=== PATIENT | male | born 1945 | race Caucasian/White ===

== ENCOUNTER 2019-04-20 12:32 | Outpatient (CLI) | payer MEDICARE, SELFPAY ==
[2019-04-20 12:49] LABS: Basophils Absolute Auto 0.1 K/mm3 (0.0-0.1); Basophils Percent Auto 1.2 % (0.2-1.2); Eosinophils Absolute Auto 0.1 K/mm3 (0-0.3); Eosinophils Percent Auto 2.8 % (0-4.4); Hematocrit 38.9 % (42.0-52.0); Hemoglobin 12.7 g/dL (14.0-18.0); Immature Granulocyte Absolute 0.02 K/mm3 (0.00-0.031); Immature Granulocyte Percent A 0.5 % (0-0.5); Lymphocytes Absolute Auto 1.23 K/mm3 (0.9-3.2); Lymphocytes Percent Auto 28.4 % (18.3-44.2); Mean Corpuscular HGB Conc 32.6 g/dl (32-36); Mean Corpuscular Hemoglobin 30.3 pg (26-34); Mean Corpuscular Volume 92.8 fl (80-100); Mean Platelet Volume 10.1 fl (7.4-10.4); Monocytes Absolute Auto 0.5 K/mm3 (0.1-0.6); Monocytes Percent Auto 10.9 % (2.6-8.5); Neutrophils Absolute Auto 2.4 K/mm3 (1.3-6.7); Neutrophils Percent Auto 56.2 % (45.5-73.1); Platelet Count Result 216 k/mm3 (150-375); Red Blood Count 4.19 M/mm3 (4.6-6.20); Red Cell Distribution Width 13.7 % (11.5-14.5); White Blood Count 4.3 K/mm3 (4.5-10.0)
[2019-04-20 16:43] LABS: Blood Urea Nitrogen 24 mg/dL (9-20); Calcium 9.5 mg/dL (8.4-10.2); Carbon Dioxide 30 mmol/L (22-30); Chloride 99 mmol/L (98-107); Estimated Glomerular Filt Rate 50; Glucose 359 mg/dL (75-110); Potassium 4.7 mmol/L (3.4-5.0); Sodium 137 mmol/L (137-145)
[2019-04-20 16:47] LABS: Iron 64 ug/dL (49-181)
[2019-04-20 17:01] LABS: Percent Iron Saturation 19 % (20-50)
== END 2019-04-20 12:33 | disposition home or self-care (01) ==
LOC: ANHLAB 12:36
PROVIDERS: PCP Family Medicine; Visit Provider Internal Medicine Hematology & Oncology
DX: D50.0 Iron deficiency anemia secondary to blood loss (chronic) (principal)
CPT/HCPCS: 36415; 80048; 82728; 83540; 83550; 85025

== ENCOUNTER 2019-10-26 08:56 | Outpatient (CLI) | payer MEDICARE, SELFPAY ==
[2019-10-26 09:24] LABS: Eosinophils Absolute Auto 0.1 K/mm3 (0-0.3); Eosinophils Percent Auto 2.6 % (0-4.4); Hematocrit 39.9 % (42.0-52.0); Immature Granulocyte Absolute 0.02 K/mm3 (0.00-0.031); Immature Granulocyte Percent A 0.5 % (0-0.5); Lymphocytes Absolute Auto 1.18 K/mm3 (0.9-3.2); Lymphocytes Percent Auto 30.4 % (18.3-44.2); Mean Corpuscular HGB Conc 32.6 g/dl (32-36); Mean Corpuscular Hemoglobin 30.7 pg (26-34); Mean Corpuscular Volume 94.1 fl (80-100); Mean Platelet Volume 10.2 fl (7.4-10.4); Monocytes Absolute Auto 0.4 K/mm3 (0.1-0.6); Monocytes Percent Auto 10.3 % (2.6-8.5); Neutrophils Absolute Auto 2.1 K/mm3 (1.3-6.7); Neutrophils Percent Auto 55.2 % (45.5-73.1); Platelet Count Result 176 k/mm3 (150-375); Red Blood Count 4.24 M/mm3 (4.6-6.20); Red Cell Distribution Width 13.2 % (11.5-14.5); White Blood Count 3.9 K/mm3 (4.5-10.0)
[2019-10-26 12:40] LABS: Iron 91 ug/dL (49-181)
[2019-10-26 12:41] LABS: Anion Gap 3 mmol/L (8-16); Blood Urea Nitrogen 28 mg/dL (9-20); Calcium 9.1 mg/dL (8.4-10.2); Carbon Dioxide 28 mmol/L (22-30); Chloride 106 mmol/L (98-107); Estimated Glomerular Filt Rate 40; Glucose 122 mg/dL (75-110); Potassium 4.5 mmol/L (3.4-5.0); Sodium 137 mmol/L (137-145)
[2019-10-26 12:50] LABS: Percent Iron Saturation 27 % (20-50)
== END 2019-10-26 08:57 | disposition home or self-care (01) ==
PROVIDERS: PCP Family Medicine; Visit Provider Internal Medicine Hematology & Oncology
DX: D50.0 Iron deficiency anemia secondary to blood loss (chronic) (principal)
CPT/HCPCS: 36415; 80048; 82728; 83540; 83550; 85025

== ENCOUNTER → 2020-01-14 13:24 | Outpatient (CLI) | payer MEDICARE, SELFPAY ==
--- NOTE | ~2020-01-14 | US_ITS ---
EXAMINATION: US renal BI DATE: 01/14/2020 13:52 INDICATION: Other acute kidney failure. TECHNIQUE: Multiple ultrasound grayscale images of the kidneys were obtained. COMPARISON: CT abdomen and pelvis 12/11/2018 FINDINGS: The right kidney measures 10.2 x 4.7 x 5.9 cm. The left kidney measures 11.8 x 9.5 x 7.5 cm. The kidn eys demonstrate normal parenchymal echogenicity. There are cysts in right kidney measuring up to 9.1 cm. There is no hydronephrosis. The bladder is normal. IMPRESSION: 1. Normal kidney sizes. No hydronephrosis. Reviewed, dictated and finalized at location A.
== END ==
PROVIDERS: PCP Family Medicine; Visit Provider Internal Medicine Nephrology
DX: N17.8 Other acute kidney failure (principal)
CPT/HCPCS: 76775

== ENCOUNTER 2020-04-20 09:53 | Outpatient (CLI) | payer MEDICARE, SELFPAY ==
[2020-04-20 10:10] LABS: Basophils Percent Auto 0.7 % (0.2-1.2); Eosinophils Absolute Auto 0.1 K/mm3 (0-0.3); Eosinophils Percent Auto 2.5 % (0-4.4); Hematocrit 33.8 % (42.0-52.0); Hemoglobin 10.6 g/dL (14.0-18.0); Immature Granulocyte Absolute 0.01 K/mm3 (0.00-0.031); Immature Granulocyte Percent A 0.2 % (0-0.5); Lymphocytes Absolute Auto 0.88 K/mm3 (0.9-3.2); Lymphocytes Percent Auto 21.7 % (18.3-44.2); Mean Corpuscular HGB Conc 31.4 g/dl (32-36); Mean Corpuscular Hemoglobin 30.5 pg (26-34); Mean Corpuscular Volume 97.1 fl (80-100); Mean Platelet Volume 9.9 fl (7.4-10.4); Monocytes Absolute Auto 0.4 K/mm3 (0.1-0.6); Monocytes Percent Auto 9.4 % (2.6-8.5); Neutrophils Absolute Auto 2.7 K/mm3 (1.3-6.7); Neutrophils Percent Auto 65.5 % (45.5-73.1); Platelet Count Result 173 k/mm3 (150-375); Red Blood Count 3.48 M/mm3 (4.6-6.20); Red Cell Distribution Width 13.7 % (11.5-14.5); White Blood Count 4.1 K/mm3 (4.5-10.0)
[2020-04-20 12:36] LABS: Anion Gap 6 mmol/L (8-16); Blood Urea Nitrogen 55 mg/dL (9-20); Calcium 9.2 mg/dL (8.4-10.2); Carbon Dioxide 25 mmol/L (22-30); Chloride 112 mmol/L (98-107); Estimated Glomerular Filt Rate 19; Glucose 130 mg/dL (75-110); Iron 76 ug/dL (49-181); Potassium 4.6 mmol/L (3.4-5.0); Sodium 143 mmol/L (137-145)
[2020-04-20 12:49] LABS: Percent Iron Saturation 22 % (20-50)
== END 2020-04-20 09:54 | disposition home or self-care (01) ==
LOC: ANHLAB 09:54
PROVIDERS: PCP Family Medicine; Visit Provider Internal Medicine Hematology & Oncology
DX: D50.0 Iron deficiency anemia secondary to blood loss (chronic) (principal)
CPT/HCPCS: 36415; 80048; 82728; 83540; 83550; 85025

== ENCOUNTER 2020-07-05 06:46 | Inpatient (IN) | payer MEDICARE, SELFPAY ==
[2020-07-05] VITALS (8 sets, daily range): BP systolic 111–141; BP diastolic 42–73; PULSE 66–87; RESP 20; TEMP 37.1–38.3; O2SAT 96–99; BMI 29.5
--- NOTE | ~2020-07-05 | US_ITS ---
EXAMINATION: US renal BI DATE: 07/08/2020 15:11 INDICATION: Hydronephrosis. TECHNIQUE: Multiple ultrasound grayscale images of the kidneys were obtained. COMPARISON: CT 12/11/2018, ultrasound 07/05/2020 FINDINGS: The right kidney measures 9.9 x 4.8 x 4.2 cm. The left kidney measures 10.1 x 7.4 x 5.9 cm. The kidne ys demonstrate normal parenchymal echogenicity. There is an 8.5 cm cyst in left kidney. There is no h ydronephrosis. The bladder is decompressed by a Thurston catheter. IMPRESSION: 1. Normal kidney sizes. No hydronephrosis. Reviewed, dictated and finalized at location B.
--- NOTE | ~2020-07-05 | US_ITS ---
EXAMINATION: US renal BI DATE: 07/05/2020 10:46 INDICATION: Decreased kidney function. TECHNIQUE: Multiple ultrasound grayscale images of the kidneys were obtained. COMPARISON: Ultrasound 01/14/2020, CT abdomen and pelvis 12/11/2018 FINDINGS: The right kidney measures 11.1 x 4.2 x 5.1 cm. The left kidney measures 11.9 x 7.5 x 5.9 cm. The kidn eys demonstrate normal parenchymal echogenicity. There is an 8.6 cm cyst in left kidney. There is mil d bilateral hydronephrosis. The bladder is markedly distended. IMPRESSION: 1. Markedly distended bladder with mild bilateral hydronephrosis. Reviewed, dictated and finalized at location B.
--- NOTE | ~2020-07-05 | US_ITS ---
US soft tissue groin RT 07/08/2020 16:15 Indication: Palpable right groin abnormality. Possible seroma or pseudoaneurysm. Procedure: High-resolution Limited ultrasound of the right groin in the area of palpable concern Comparison: No prior studies for comparison. Findings: In the area of right groin bruising and palpable lump there is a heterogeneous complex pred ominantly hypoechoic mass measuring 6.1 x 5.2 x 3.6 cm which does not communicate with the underlying vasculature. There is posterior acoustic enhancement with subtle internal vascularity. Impression: 1: Complex right groin mass in the area of palpable concern measuring 6.1 x 5.2 x 3.6 cm. Considerati ons include hematoma/seroma, although superimposed infection is not excluded. No evidence for pseudoa neurysm. Reviewed, dictated and finalized at location A. Impression: 1: Complex right groin mass in the area of palpable concern measuring 6.1 x 5.2 x 3.6 cm. Considerations include hematoma/seroma, although superimposed infect ion is not excluded. No evidence for pseudoaneurysm.
--- NOTE | 2020-07-05 07:00 | PC.NURSE ---
This patient, Phong Red, was admitted to 3 Med Surg Room 306-01 @ 06:36 via EMS as a direct admission. Patient/family oriented to hospital policies and general routines including ID bracelet, bed and alarms, visiting hours, pain management, procedures, bathroom and other care routines, personal items, smoking policy, room service/diet, and visiting hours. Information on how to activate the Rapid Response Team has been discussed. Patient/Family are encouraged to report perceived risks to care and to ask questions if they do not understand what they are told or what they should do.
--- NOTE | 2020-07-05 07:55 | PM.CNNEP ---
Assessment and Plan Assessment and plan (1) Renal failure (ARF), acute on chronic: Code(s): N17.9 - Acute kidney failure, unspecified; N18.9 - Chronic kidney disease, unspecified Status: Acute Assessment and Plan: Phong has chronic kidney disease. His former baseline creatinine was around 2. This is most likely due to diabetes and hypertension. However since about 6 months ago or so his creatinine has been elevated to around the 4 range. A lot has been happening in the last 6 months including his worsening aortic stenosis and also a a TAVR a few days ago. It is possible that valvular heart disease with chronic pre renal azotemia could have led to his higher creatinine. He did receive dye a couple of times which could have played a role at some point. Cholesterol emboli could be an issue. And of course other more common issues such as obstruction an interstitial nephritis could be playing a role as well. Glomerulonephritis is always possible as well. His creatinine is actually better than it has been in a few months with a value in the high threes at [facility]. At 1st glance his mental status and asterixis could be caused by kidney disease however it seems to have worsened dramatically in the last few days but his creatinine is actually better. So I am not sure if these are uremic symptoms are not. He is not on any medications that would do this necessarily. At this point will get a Neurology consult to see what they think. To evaluate the worsened kidneys I will check a renal ultrasound, urine electrolytes and eosinophils, serology and immunofixation. Consider renal biopsy if things do not get much better. (2) Nonrheumatic aortic (valve) stenosis: Code(s): I35.0 - Nonrheumatic aortic (valve) stenosis Status: Acute Assessment and Plan: The patient had a TAVR 10 days ago (3) Essential (primary) hypertension: Code(s): I10 - Essential (primary) hypertension Status: Acute Assessment and Plan: His blood pressure is under fairly good control. Will resume his home medications and see how he does. (4) Vascular dementia without behavioral disturbance: Code(s): F01.50 - Vascular dementia without behavioral disturbance Status: Acute Assessment and Plan: This was diagnosed by Neurology in 2019. (5) Type 2 diabetes mellitus without complications: Qualifiers: Diabetes mellitus [facility] insulin use: without terminal make up operator use Qualified Code(s): E11.9 - Type 2 diabetes mellitus without complications Code(s): E11.9 - Type 2 diabetes mellitus without complications Status: Acute Assessment and Plan: On Accu-Cheks and sliding-scale insulin (6) Anemia: Code(s): D64.9 - Anemia, unspecified Status: Acute Assessment and Plan: Will check a CBC and iron levels (7) Mixed hyperlipidemia: Code(s): E78.2 - Mixed hyperlipidemia Status: Acute Assessment and Plan: He is on repatha and atorvastatin History of Present Illness Reason for Consult Consult date: 07/05/20 Chief Complaint Chief complaint: Acute on chronic renal failure, anemia History of Present Illness Narrative: Phong is a very pleasant 75-year-old gentleman who has multiple medical problems including chronic kidney disease followed by Dr. Garcia in the office, aortic valve stenosis status post TAVR a couple of weeks ago, diabetes with retinopathy, hypertension, anemia, hypothyroidism, hyperlipidemia, Helicobacter associated gastritis in the past, tremor. The patient had a TAVR a couple of weeks ago. He apparently did pretty well since then until a couple of days ago when he started falling. He fell 3 times. He has myoclonic jerks while I talk with them and he says these have been going on for a few days intermittently. He does not lose consciousness with falling. He says that generally he is just standing there and then suddenly his legs collap
[2020-07-05 08:21] LABS: Mean Corpuscular HGB Conc 31.5 g/dl (32-36); Mean Corpuscular Volume 91.9 fl (80-100); Mean Platelet Volume 9.5 fl (7.4-10.4); Platelet Count Result 200 k/mm3 (150-375); Red Blood Count 2.21 M/mm3 (4.6-6.20); Red Cell Distribution Width 13.8 % (11.5-14.5); White Blood Count 13.5 K/mm3 (4.5-10.0)
[2020-07-05 08:32] LABS: Hematocrit 20.3 % (42.0-52.0); Hemoglobin 6.4 g/dL (14.0-18.0)
[2020-07-05 08:32] LABS: Reticulocyte Hemoglobin Conten 32.3 pg (28.2-35.7); Reticulocyte Percent 2.47 % (0.7-4.3); Reticulocytes Absolute 0.06 B/L (32.2-175.7)
[2020-07-05 08:35] LABS: Alanine Aminotransferase 13 U/L (4-50); Albumin Level 2.8 g/dL (3.5-5.1); Alkaline Phosphatase 82 U/L (38-126); Anion Gap 7 mmol/L (8-16); Aspartate Amino Transferase 26 U/L (17-59); Bilirubin,Total 0.4 mg/dL (0.2-1.3); Blood Urea Nitrogen 61 mg/dL (9-20); Calcium 8.8 mg/dL (8.4-10.2); Carbon Dioxide 26 mmol/L (22-30); Chloride 108 mmol/L (98-107); Estimated CRCL calculation 20 ml/min; Estimated Glomerular Filt Rate 16; Glucose 125 mg/dL (75-110); Potassium 3.4 mmol/L (3.4-5.0); Sodium 141 mmol/L (137-145)
[2020-07-05 08:40] LABS: Creatine Kinase 122 U/L (55-170)
[2020-07-05 08:44] LABS: Basophils Absolute Auto 0.1 K/mm3 (0.0-0.1); Basophils Percent Auto 0.4 % (0.2-1.2); Eosinophils Percent Auto 0.2 % (0-4.4); Immature Granulocyte Absolute 0.06 K/mm3 (0.00-0.031); Immature Granulocyte Percent A 0.5 % (0-0.5); Lymphocytes Absolute Auto 0.55 K/mm3 (0.9-3.2); Lymphocytes Percent Auto 4.3 % (18.3-44.2); Monocytes Percent Auto 7.5 % (2.6-8.5); Neutrophils Absolute Auto 11.2 K/mm3 (1.3-6.7); Neutrophils Percent Auto 87.1 % (45.5-73.1)
[2020-07-05 09:05] LABS: Albumin Level 2.8 g/dL (3.5-5.1); Anion Gap 3 mmol/L (8-16); Blood Urea Nitrogen 62 mg/dL (9-20); Calcium 8.4 mg/dL (8.4-10.2); Carbon Dioxide 29 mmol/L (22-30); Chloride 108 mmol/L (98-107); Estimated CRCL calculation 20 ml/min; Estimated Glomerular Filt Rate 16; Glucose 125 mg/dL (75-110); Phosphorus 3.6 mg/dL (2.5-4.5); Potassium 3.5 mmol/L (3.4-5.0); Sodium 140 mmol/L (137-145)
[2020-07-05 09:21] LABS: Parathyroid Intact 135.8 pg/mL (7.5-53.5)
[2020-07-05 09:22] LABS: Erythrocyte Sedimentation Rate > 140 mm/hr (0-20)
[2020-07-05 09:25] LABS: Add Urine Microscopic? YES; Appearance Urine Cloudy (Clear); Bacteria Urine Trace /hpf; Bilirubin Urine Negative (Negative); Blood Urine 3+ (Negative); Color Urine Yellow (Yellow); Glucose Urine UA Negative (Negative); Ketones Urine Negative (Negative); Leukocyte Esterase Ur 3+ LEU/UL (NEGATIVE); Mucus Urine Rare /lpf; Nitrate Urine Negative (Negative); Protein Urine 2+ mg/dL (Negative); RBC Urine >75 /hpf (0-2); Specific Grav Ur 1.011 (1.001-1.035); Squamous Epithelial Cell Urine Rare /hpf (Few); Urobilinogen Urine Negative mg/dL (<2.0); WBC Urine >75 /hpf (0-3)
[2020-07-05 09:51] LABS: Eosinophil Urine None Seen % (None Seen)
[2020-07-05 10:12] LABS: Creatinine Urine 60.2 mg/dL; Total Protein Urine Random 35 mg/dL; Ur Ttl Prot Creatinine Ratio 0.58 mg/mg (0-0.20)
[2020-07-05 10:21] LABS: Sodium Urine Random 70 meq/L
[2020-07-05 10:24] LABS: Iron < 10 ug/dL (49-181)
[2020-07-05 10:40] LABS: Percent Iron Saturation 4 % (20-50)
--- NOTE | 2020-07-05 10:45 | PC.NURSE ---
Per MD insert stack for 24 hour urine collection. Stack inserted w/1500ml clear yellow urine return w/multiple sm blood clots noted.
--- NOTE | 2020-07-05 11:02 | WPDNEURCNPN ---
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 Status: Acute Additional Plan recurrent widespread myoclonic jerks involving upper and lower extremities as well as face raising the possibility of the myoclonic encephalopathy will obtain the EEG and if we have to give him the anticonvulsants obviously valproic acid will be the most beneficial and also considering his renal disease Consult date: 07/05/20 Time Seen: 11:00 HPI: Phong Red is a 75 year old maleAdmitted to the hospital with the complaints of recurrent falls in addition to myoclonic jerks of several days duration without becoming unconscious with specific description that he just standing and his legs suddenly collapse. Patient has ongoing history of 1. Chronic kidney disease 2. Aortic valvular stenosis with history of TAVR just recently 2 weeks ago 3. Diabetic retinopathy 4. Hypertension 5. Hypothyroidism 6. Hyperlipidemia 7. Anemia 8. Tremor. Patient has recently been seen in the emergency room at [facility] and transferred to [facility] for further care. evaluation up until now includes the routine lab with WBC 13.5 hemoglobin only 6.4 platelet count 200 sed rate more than 140, BMP with BUN of 62 and creatinine of 3.80 GFR only 16 but sodium and potassium within normal range, Julio only 10, UA abnormal Review of Systems Review of Systems: All systems reviewed & are unremarkable except as noted in HPI and below PMFSH Past Medical History Medical History Anemia Was getting iron infusions Angina of effort Arm fracture Congenital hip deformity Right hip dislocation, congenital GERD (gastroesophageal reflux disease) H/O non-insulin dependent diabetes mellitus HLD (hyperlipidemia) HTN (hypertension) Hyperthyroidism Legally blind in left eye, as defined in [place] Myocardial infarction Surgical History Surgical History History of right hip replacement Hx of cardiac cath Hx of tonsillectomy Stented coronary artery Family History Family History Father Acute myocardial infarction, Onset Age: 59 Family history of cardiovascular disease Grandparent Family history of cardiovascular disease Family history of malignant neoplasm Family history of malignant neoplasm of bone Social History Social History Smoking status: Never smoker Alcohol intake: never Substance use: never Spiritual care concerns: No Meds Home Medications and Allergies Home Medications Medication Instructions Recorded Confirmed Type Repatha Syringe 3.5 ml SUBCUT DAILY 02/28/19 07/05/20 History aspirin [Aspir-81] 81 mg PO DAILY 02/28/19 07/05/20 History cinnamon bark [Cinnamon] 500 mg PO DAILY 02/28/19 07/05/20 History cyanocobalamin (vitamin B-12) 1,000 mcg PO DAILY 02/28/19 07/05/20 History [Vitamin B-12] ferrous sulfate [Feosol] 325 mg PO BID 02/28/19 07/05/20 History fish [id number]-6-vit C-vit E 1,000 mg PO DAILY 02/28/19 07/05/20 History isosorbide mononitrate 30 mg PO DAILY 02/28/19 07/05/20 History nitroglycerin [Nitrostat] 0.4 mg SUBLINGUAL Q5-15M PRN 02/28/19 07/05/20 History ranolazine 500 mg PO Q12H 02/28/19 07/05/20 History atorvastatin 20 mg tablet 20 mg PO DAILY 05/08/19 07/05/20 History levothyroxine 100 mcg tablet 100 mcg PO DAILY #90 tablet 07/03/19 07/05/20 Rx pramipexole 0.5 mg tablet 1 mg PO BID #360 tablet 07/23/19 07/05/20 Rx clopidogrel 75 mg tablet 75 mg PO DAILY #90 tablet 08/03/19 07/05/20 Rx carvedilol 6.25 mg tablet 6.25 mg PO BID #180 tablet 11/18/19 07/05/20 Rx saxagliptin 2.5 mg tablet 2.5 mg PO DAILY #90 tablet 02/19/20 07/05/20 Rx famotidine 20 mg tablet 20 mg PO BID #60 tablet 02/26/20 07/05/20 Rx amlodipine 5 mg tablet 2.5 mg PO DAILY #30 tablet 06/13/20 07/05/20 Rx acetaminophen 325 mg
[2020-07-05] MEDS: SODIUM CHLORIDE 0.9% IV 250 ML 30 ML IV CONT (11:27)
[2020-07-05] MEDS: ACETAMINOPHEN 325 MG TABLET 650 MG PO (11:27)
--- NOTE | 2020-07-05 13:07 | PM.IMHP ---
H&P: HPI History of Present Illness Date/Time: 07/05/20 13:07 Patient is 75-year-old male with history of acute on chronic kidney disease, hx of severe aortic stenosis s/p TVAR 2 weeks ago, and anemia, stats has history of asterixis resulting in widespread myoclonic jerks involving upper and lower extremities and yesterday his symptoms were worse with movement he was not able to control his upper extremities while eating cereal he was throwing cereal everywhere, he was not able to ambulate and was falling and had a several falls finally patient went to the emergency department at [facility], while there his creatinine was significant elevated from his baseline, his rn integrated Dr. Bess at the [facility] and patient was transferred for further evaluation, unfortunately patient is a poor historian, most of the story is recorded from the chart and speaking with patient's daughter, upon arrival patient hemoglobin was 6.7, his stool Hemoccult was negative at other hospital most likely patient anemia of chronic disease, patient was given 1 pack of RBC, patient also has a fever chest x-ray did not show significant pathology however urine suspicious for UTI, I have started the patient on Rocephin and will follow-up on urine culture, patient also seen by neurologist and has ordered EEG to further evaluate patient myoclonic jerks. Currently patient does jerking movement of upper and lower ext extremities. Chief Complaint: asterixis resulting in widespread myoclonic jerks Review of Systems Review of Systems: ROS unobtainable: Yes unobtainable due to medical condition PMFSH Past Medical History Medical History Anemia Was getting iron infusions Angina of effort Arm fracture Congenital hip deformity Right hip dislocation, congenital GERD (gastroesophageal reflux disease) H/O non-insulin dependent diabetes mellitus HLD (hyperlipidemia) HTN (hypertension) Hyperthyroidism Legally blind in left eye, as defined in [place] Myocardial infarction Surgical History Surgical History History of right hip replacement Hx of cardiac cath Hx of tonsillectomy Stented coronary artery Family History Family History Father Acute myocardial infarction, Onset Age: 59 Family history of cardiovascular disease Grandparent Family history of cardiovascular disease Family history of malignant neoplasm Family history of malignant neoplasm of bone Social History Social History Smoking status: Never smoker Alcohol intake: never Substance use: never Spiritual care concerns: No Meds Home Medications and Allergies Home Medications Medication Instructions Recorded Confirmed Type Repatha Syringe 3.5 ml SUBCUT DAILY 02/28/19 07/05/20 History aspirin [Aspir-81] 81 mg PO DAILY 02/28/19 07/05/20 History cinnamon bark [Cinnamon] 500 mg PO DAILY 02/28/19 07/05/20 History cyanocobalamin (vitamin B-12) 1,000 mcg PO DAILY 02/28/19 07/05/20 History [Vitamin B-12] ferrous sulfate [Feosol] 325 mg PO BID 02/28/19 07/05/20 History fish ulr-icycl-8-vit C-vit E 1,000 mg PO DAILY 02/28/19 07/05/20 History isosorbide mononitrate 30 mg PO DAILY 02/28/19 07/05/20 History nitroglycerin [Nitrostat] 0.4 mg SUBLINGUAL Q5-15M PRN 02/28/19 07/05/20 History ranolazine 500 mg PO Q12H 02/28/19 07/05/20 History atorvastatin 20 mg tablet 20 mg PO DAILY 05/08/19 07/05/20 History levothyroxine 100 mcg tablet 100 mcg PO DAILY #90 tablet 07/03/19 07/05/20 Rx pramipexole 0.5 mg tablet 1 mg PO BID #360 tablet 07/23/19 07/05/20 Rx clopidogrel 75 mg tablet 75 mg PO DAILY #90 tablet 08/03/19 07/05/20 Rx carvedilol 6.25 mg tablet 6.25 mg PO BID #180 tablet 11/18/19 07/05/20 Rx saxagliptin 2.5 mg tablet 2.5 mg PO DAILY #90 tablet 02/19/20 07/05/20 Rx famotidine 20 mg tablet 20 mg PO
--- NOTE | 2020-07-05 13:30 | PCPTNOTE ---
Attempted PT eval. Pt having EEG and blood transfusion. Will try again at later time.
--- NOTE | 2020-07-05 14:14 | PCOTNOTE ---
OT evaluation attempted, Hold OT evaluation per nursing request due to multiple tests ordered and awaiting completion.
--- NOTE | 2020-07-05 14:44 | PCPTNOTE ---
Attempted PT eval. [place] LATHAM, stated to hold therapy as pt had multiple tests and was too tired for therapy. Will try again tomorrow.
[2020-07-05] MEDS: cefTRIAXone 1 GM VIAL IM (15:01)
[2020-07-05 16:05] LABS: Hemoglobin 7.6 g/dL (14.0-18.0)
[2020-07-05] MEDS: FERROUS SULFATE 324 MG TABLET PO (17:03)
[2020-07-05] MEDS: PRAMIPEXOLE 1 MG TABLET PO (17:03)
[2020-07-05] MEDS: QUEtiapine FUMARATE 25 MG TABLET 50 MG PO (20:38)
[2020-07-05] MEDS: RANOLAZINE 500 MG TAB.ER.12H PO (20:38)
[2020-07-05] MEDS: FAMOTIDINE 20 MG TABLET PO (20:38)
[2020-07-05] MEDS: carvediloL 6.25 MG TABLET PO (20:39)
[2020-07-06 06:00] VITALS: BP 138/52; PULSE 62; RESP 20; TEMP 36.4; O2SAT 98
[2020-07-06] MEDS: LEVOTHYROXINE SODIUM 100 MCG TABLET PO (06:03)
[2020-07-06 06:34] LABS: Albumin Level 2.4 g/dL (3.5-5.1); Anion Gap 4 mmol/L (8-16); Blood Urea Nitrogen 53 mg/dL (9-20); Calcium 7.9 mg/dL (8.4-10.2); Carbon Dioxide 28 mmol/L (22-30); Chloride 108 mmol/L (98-107); Estimated CRCL calculation 23 ml/min; Estimated Glomerular Filt Rate 18; Glucose 106 mg/dL (75-110); Phosphorus 3.8 mg/dL (2.5-4.5); Potassium 3.4 mmol/L (3.4-5.0); Sodium 140 mmol/L (137-145)
[2020-07-06 08:00] VITALS: PULSE 68; RESP 20; O2SAT 98
--- NOTE | 2020-07-06 08:22 | WPDURCON ---
Assessment and Plan Assessment and plan (1) CKD stage 4 secondary to hypertension: Code(s): I12.9 - Hypertensive chronic kidney disease with stage 1 through stage 4 chronic kidney disease, or unspecified chronic kidney disease; N18.4 - Chronic kidney disease, stage 4 (severe) Status: Acute Assessment and Plan: Nephrology to evaluate. (2) Renal failure (ARF), acute on chronic: Code(s): N17.9 - Acute kidney failure, unspecified; N18.9 - Chronic kidney disease, unspecified Status: Acute Assessment and Plan: Improved s/p stack insertion, continue to monitor to baseline. (3) BPH (benign prostatic hyperplasia): Code(s): N40.0 - Benign prostatic hyperplasia without lower urinary tract symptoms Status: Acute Assessment and Plan: Start Flomax, keep stack for 7-10 days, will do a voiding trial in the office at that time. (4) Hydronephrosis: Code(s): N13.30 - Unspecified hydronephrosis Status: Acute Assessment and Plan: Repeat his JOHN to note resolution of hydronephrosis, secondary to retention. No further evaluation needed at this time. Urology Consult Note HPI Date Seen: 07/06/20 Requesting Physician: Linda Angeles DO Primary Care Provider: Peña Whitmore MD Consult Narrative Narrative: Phong Red is a 75 year old male who was transferred to [place] from [facility] where he was initially seen for multiple falls. He was brought to [facility] by EMS from his daughter's house where he resides. 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 He denies previous Urologic problems such as UTI's or BPH. He was straight catheterized to obtain a urine sample which indicates a UTI. However, he began to have gross hematuria following the straight catheterization. Once transferred, a stack was placed noting 1500cc of pink urine with small clots. The urine is clear today and draining well to gravity, no clots are present. A urine culture is pending at [facility] and blood cultures are pending here. WBC has not been obtained. His creatinine was 3.80 but is improving s/p stack insertion to 3.30. JOHN was done on 07/05/2020 showing bladder distention and bilateral hydronephrosis. He states he has frequency q 30 minutes daily, nocturia 5-6x night and some urge incontinence. Review of Systems Cardiovascular: Cardiovascular: Denies chest pain Respiratory: Respiratory: Reports no additional respiratory complaints Gastrointestinal: Gastrointestinal: Denies abdominal pain, Denies nausea and Denies vomiting Genitourinary: Genitourinary: Denies hematuria, Denies dysuria, Denies flank pain, Reports nocturia, Reports urinary frequency, Reports urinary hesitancy, Reports urinary incontinence and Denies urinary urgency PMFSH Past Medical History Medical History Anemia Was getting iron infusions Angina of effort Arm fracture Congenital hip deformity Right hip dislocation, congenital GERD (gastroesophageal reflux disease) H/O non-insulin dependent diabetes mellitus HLD (hyperlipidemia) HTN (hypertension) Hyperthyroidism Legally blind in left eye, as defined in [place] Myocardial infarction Surgical History Surgical History History of right hip replacement Hx of cardiac cath Hx of tonsillectomy Stented coronary artery Family History Family History Father Acute myocardial infarction, Onset Age: 59 Family history of cardiovascular disease Grandparent Family history of cardiovascular disease Family history of malignant neoplasm Family history of malignant neoplasm of bone Social History Social History Smoking status: Never smoker Alcohol intake: never Substance use: never Spiritual care concerns: No Meds Home Medications and Allergi
[2020-07-06] MEDS: FERROUS SULFATE 324 MG TABLET PO ×2 (08:29→17:31)
[2020-07-06] MEDS: ASPIRIN 81 MG ENTERIC TABLET PO (08:29)
[2020-07-06] MEDS: FAMOTIDINE 20 MG TABLET PO ×2 (08:29→20:48)
[2020-07-06] MEDS: PRAMIPEXOLE 1 MG TABLET PO ×2 (08:29→17:32)
[2020-07-06] MEDS: RANOLAZINE 500 MG TAB.ER.12H PO ×2 (08:29→20:47)
[2020-07-06] MEDS: CHOLECALCIFEROL 1,000 UNITS TABLET 2000 UNITS PO (08:29)
[2020-07-06] MEDS: ISOSORBIDE MONONITRATE 30 MG TAB.ER.24H PO (08:29)
[2020-07-06] MEDS: OMEGA 3 POLYUNSAT FATTY ACIDS 1 GM CAP PO (08:29)
[2020-07-06 08:30] VITALS: PULSE 68
[2020-07-06] MEDS: carvediloL 6.25 MG TABLET PO ×2 (08:30→20:48)
[2020-07-06] MEDS: CYANOCOBALAMIN 1,000 MCG TABLET 1000 MCG PO (08:30)
[2020-07-06] MEDS: amLODIPine BESYLATE 2.5 MG TABLET PO (08:30)
[2020-07-06] MEDS: FUROSEMIDE 40 MG TABLET PO (08:30)
[2020-07-06] MEDS: ATORVASTATIN 20 MG TABLET PO (08:30)
[2020-07-06] MEDS: CLOPIDOGREL BISULFATE 75 MG TABLET PO (08:31)
[2020-07-06] MEDS: TAMSULOSIN HCL 0.4 MG CAPSULE PO (12:15)
--- NOTE | 2020-07-06 13:09 | P.NEURO_ITS ---
Neurology EEG Report General Information Date of Study: 07/05/20 TEST eeg DIAGNOSIS myoclonic jerks CONDITION OF RECORDING awake,drowsy and sleep EEG NUMBER [id number] CLINICAL HISTORY patient has been transferred to this particular hospital from other institution because of the recurrent body twitches. EEG DESCRIPTION bihemispheric low to medium voltage 5-7 hertz per second theta activity seen admixed with intermittent 3-4 per second delta activity and super imposed by low voltage recurrent spikes lasting from 1-2 seconds randomly and bilaterally. hyperventilation not done. photic stimulation not done.PHARMACY CUSTOMER CARE SPECIALIST,NF,NL. IMPRESSION abnormal Record due to the presence of bihemispheric widespread short lasting spikes without any slow wave component. Configuration of the spikes does not correlate with triphasic waves this study compatible with the myoclonic seizures.
--- NOTE | 2020-07-06 13:51 | PHAR ---
HOME MED VERIFIED ONGLYZA 2.5MG TABLET TAKE 1 TABLET DAILY
[2020-07-06 14:00] VITALS: BP 112/48; PULSE 64; RESP 18; TEMP 36.7; O2SAT 100
--- NOTE | 2020-07-06 14:13 | PM.IMPN ---
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 Bess at the [facility] and patient was transferred for further evaluation, unfortunately patient is a poor historian, most of the story is recorded from the chart and speaking with patient's daughter, upon arrival patient hemoglobin was 6.7, his stool Hemoccult was negative at other hospital most likely patient anemia of chronic disease, patient was given 1 pack of RBC, patient also has a fever chest x-ray did not show significant pathology however urine suspicious for UTI, I have started the patient on Rocephin and will follow-up on urine culture, patient also seen by neurologist and has ordered EEG to further evaluate patient myoclonic jerks. Currently patient does jerking movement of upper and lower ext extremities. 07/06/20 Patient janae garay daughter is bedside , I review with her his living will and code status. She agrees that he has stated in the past that he would not want extraordinary measures in the event that he lost his life. Patient's code status is updated to DNR (DNI if intubating would be futile). He has been seen by Neurology and placed on valproic acid for his myoclonic jerks. He has been seen by urology Thurston catheter has been placed and he will need to follow-up 7-10 days for Thurston removal in urologist's office. Additionally, he has been seen by nephrology and his renal function is improving now that urinary obstruction habits been overcome. Time Spent With Patient Time with patient: 25 - 35 minutes Subjective Date/time seen: 07/06/20 14:1 Patient doing tanisha daughter is bedside , I review with her his living will and code status. She agrees that he has stated in the past that he would not want extraordinary measures in the event that he lost his life. Patient's code status is updated to DNR (DNI if intubating would be futile). Patient is requesting to be discharged he would like to go home. He is advised that we will wait for Nephrology to indicate when he is cleared for discharge. Exam Narrative: Exam Narrative: GEN: NAD, AAOx2, cooperative HEENT: NCAT, MMM, EOMI Neck: no JVD Heart: S1S2 RRR Lungs: CTA B/l Abd: soft, NT, ND, bowel sounds normoactive Ext: moves all, no cyanosis, no clubbing, no edema Objective Data Vital Signs Vital Signs: Vital Signs - 24 hr 07/05/20 22:00 07/06/20 06:00 07/06/20 08:00 Temperature 99.2 F 97.5 F L Pulse Rate 66 62 68 Respiratory Rate 20 20 20 Blood Pressure 111/47 L 138/52 L Pulse Oximetry 96 98 98 07/06/20 08:30 Temperature Pulse Rate 68 Respiratory Rate Blood Pressure Pulse Oximetry Intake/Output Intake/Output: Intake & Output 07/03/20 07/04/20 07/05/20 07/06/20 23:59 23:59 23:59 23:59 Intake Total 915 670 Output Total 350 850 Balance 565 -180 Meds/Results Medications: Active Medications Generic Name Dose Route Start Last Admin Trade Name Freq PRN Reason Stop Dose Admin Acetaminophen 650 mg 07/05/20 11:12 07/05/20 11:27 Acetaminophen 325 Mg Tablet PO 650 mg Q6H PRN Administration As Needed for Fever or Pain Amlodipine Besylate 2.5 mg 07/06/20 09:00 07/06/20 08:30 Amlodipine Besylate 2.5 Mg Tablet PO 2.5 mg DAILY JULIETH Administration Aspirin 81 mg 07/06/20 09:00 07/06/20 08:29 Aspirin 81 Mg Enteric Tablet PO 81 mg
--- NOTE | 2020-07-06 18:14 | PM.PNNEP ---
Progress Note: A&P Assessment and Plan (1) Renal failure (ARF), acute on chronic: Code(s): N17.9 - Acute kidney failure, unspecified; N18.9 - Chronic kidney disease, unspecified Status: Acute Assessment and Plan: Phong has chronic kidney disease. This is most likely due to diabetes and hypertension. His baseline is 2. The patient has acute kidney injury as well. His creatinine has been around 4. A catheter was placed by Urology and his creatinine has improved to 3.3. Hopefully this is going to continue to improve. (2) Nonrheumatic aortic (valve) stenosis: Code(s): I35.0 - Nonrheumatic aortic (valve) stenosis Status: Acute Assessment and Plan: The patient had a TAVR 10 days ago (3) Essential (primary) hypertension: Code(s): I10 - Essential (primary) hypertension Status: Acute Assessment and Plan: His blood pressure is under fairly good control. Will resume his home medications and see how he does. (4) Vascular dementia without behavioral disturbance: Code(s): F01.50 - Vascular dementia without behavioral disturbance Status: Acute Assessment and Plan: This was diagnosed by Neurology in 2020. (5) Type 2 diabetes mellitus without complications: Qualifiers: Diabetes mellitus long-term insulin use: without computer terminal operator use Qualified Code(s): E11.9 - Type 2 diabetes mellitus without complications Code(s): E11.9 - Type 2 diabetes mellitus without complications Status: Acute Assessment and Plan: On Accu-Cheks and sliding-scale insulin (6) Anemia: Code(s): D64.9 - Anemia, unspecified Status: Acute Assessment and Plan: Iron levels are low. Will give IV iron Will go ahead with Epogen as well since his creatinine is so high. (7) Mixed hyperlipidemia: Code(s): E78.2 - Mixed hyperlipidemia Status: Acute Assessment and Plan: He is on repatha and atorvastatin Subjective Date/time seen: 07/06/20 18:14 Interval history: Phong is feeling a little bit better today. He ate some lunch and dinner. He has no shortness of breath or chest pain. Review of Systems Cardiovascular: Cardiovascular: Reports no additional cardiovascular complaints Respiratory: Respiratory: Reports no additional respiratory complaints Gastrointestinal: Gastrointestinal: Reports no additional gastrointestinal complaints Genitourinary: Genitourinary: Reports no additional male genitourinary complaints Exam Narrative: Exam Narrative: WDWN in NAD skin no rash or subcu nodules head ncat lungs clear cor reg no rub or gallop abd BS+ nontender and soft ext no edema. Objective Data Vital Signs Vital Signs: Vital Signs - 24 hr 07/05/20 22:00 07/06/20 06:00 07/06/20 08:00 Temperature 37.3 C 36.4 C L Pulse Rate 66 62 68 Respiratory Rate 20 20 20 Blood Pressure 111/47 L 138/52 L Pulse Oximetry 96 98 98 07/06/20 08:30 07/06/20 14:00 Temperature 36.7 C Pulse Rate 68 64 Respiratory Rate 18 Blood Pressure 112/48 L Pulse Oximetry 100 Intake/Output Intake/Output: Intake & Output 07/03/20 07/04/20 07/05/20 07/06/20 23:59 23:59 23:59 23:59 Intake Total 915 1280 Output Total 350 1600 Balance 565 -320 Meds/Results Medications: Active Medications Generic Name Dose Route Start Last Admin Trade Name Memo PRN Reason Stop Dose Admin Acetaminophen 650 mg 07/05/20 11:12 07/05/20 11:27 Acetaminophen 325 Mg Tablet PO 650 mg Q6H PRN Administration As Needed for Fever or Pain Amlodipine Besylate 2.5 mg 07/06/20 09:00 07/06/20 08:30 Amlodipine Besylate 2.5 Mg Tablet PO 2.5 mg DAILY JULIETH Administration Aspirin 81 mg 07/06/20 09:00 07/06/20 08:29 Aspirin 81 Mg Enteric Tablet PO 81 mg DAILY JULIETH Administration Atorvastatin Calcium 20 mg 07/06/20 09:00 07/06/20 08:30 Atorvastatin 20 Mg Tablet PO 20 mg DAILY [facility] Administrati
[2020-07-06] MEDS: EPOETIN ALFA-EPBX 10,000 UNITS/ML VIAL 10000 UNITS SUB-Q (18:58)
[2020-07-06] MEDS: QUEtiapine FUMARATE 25 MG TABLET 50 MG PO (20:47)
[2020-07-06 20:48] VITALS: PULSE 64
[2020-07-06 22:00] VITALS: BP 138/73; PULSE 72; RESP 18; TEMP 36.2; O2SAT 100
[2020-07-07] MEDS: LEVOTHYROXINE SODIUM 100 MCG TABLET PO (05:58)
[2020-07-07 06:00] VITALS: BP 124/55; PULSE 64; RESP 18; TEMP 36.4; O2SAT 98
[2020-07-07 06:39] LABS: Albumin Level 2.5 g/dL (3.5-5.1); Anion Gap 4 mmol/L (8-16); Blood Urea Nitrogen 50 mg/dL (9-20); Calcium 8.1 mg/dL (8.4-10.2); Carbon Dioxide 31 mmol/L (22-30); Chloride 106 mmol/L (98-107); Estimated CRCL calculation 22 ml/min; Estimated Glomerular Filt Rate 18; Glucose 107 mg/dL (75-110); Phosphorus 3.2 mg/dL (2.5-4.5); Potassium 3.4 mmol/L (3.4-5.0); Sodium 141 mmol/L (137-145)
[2020-07-07] MEDS: FAMOTIDINE 20 MG TABLET PO ×2 (08:01→20:06)
[2020-07-07 08:02] VITALS: PULSE 66
[2020-07-07] MEDS: CYANOCOBALAMIN 1,000 MCG TABLET 1000 MCG PO (08:02)
[2020-07-07] MEDS: FUROSEMIDE 40 MG TABLET PO (08:02)
[2020-07-07] MEDS: OMEGA 3 POLYUNSAT FATTY ACIDS 1 GM CAP PO (08:02)
[2020-07-07] MEDS: ISOSORBIDE MONONITRATE 30 MG TAB.ER.24H PO (08:02)
[2020-07-07] MEDS: TAMSULOSIN HCL 0.4 MG CAPSULE PO (08:02)
[2020-07-07] MEDS: CHOLECALCIFEROL 1,000 UNITS TABLET 2000 UNITS PO (08:02)
[2020-07-07] MEDS: RANOLAZINE 500 MG TAB.ER.12H PO ×2 (08:02→20:07)
[2020-07-07] MEDS: amLODIPine BESYLATE 2.5 MG TABLET PO (08:02)
[2020-07-07] MEDS: carvediloL 6.25 MG TABLET PO ×2 (08:02→20:07)
[2020-07-07] MEDS: PRAMIPEXOLE 1 MG TABLET PO ×2 (08:02→16:38)
[2020-07-07] MEDS: FERROUS SULFATE 324 MG TABLET PO ×2 (08:04→16:38)
[2020-07-07] MEDS: ATORVASTATIN 20 MG TABLET PO (08:04)
[2020-07-07] MEDS: ASPIRIN 81 MG ENTERIC TABLET PO (08:04)
[2020-07-07] MEDS: CLOPIDOGREL BISULFATE 75 MG TABLET PO (08:04)
[2020-07-07] MEDS: IRON SUCROSE COMPLEX 200 MG in SODIUM CHLORIDE 0.9% IV 50 ML 120 MG IVPB (08:18)
--- NOTE | 2020-07-07 09:08 | PM.IMPN ---
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: Code(s): I12.9 - Hypertensive chronic kidney disease with stage 1 through stage 4 chronic kidney disease, or unspecified chronic kidney disease; N18.4 - Chronic kidney disease, stage 4 (severe) Status: Acute Assessment and Plan: Patient baseline creatinine is 2 upon arrival his creatinine was 4 patient seen by Nephrology etiology uncertain suspect may be related worsening currently creatinine is > 3 and rising may be new baseline, tracee escobedo following (3) Anemia: Code(s): D64.9 - Anemia, unspecified Status: Acute Assessment and Plan: Upon arrival patient hemoglobin was 6.7, his stool Hemoccult is negative, there is no obvious source of bleeding, most likely secondary to anemia of chronic disease we have given him 1 unit pack RBC and was seen by data analysis manager and ferrous IV given (4) Vascular dementia without behavioral disturbance: Code(s): F01.50 - Vascular dementia without behavioral disturbance Status: Acute Assessment and Plan: Patient is seen by neurologist clinically stable further recommendation to follow Additional Plan 07/05/20 13:07 Patient is 75-year-old male with history of acute on chronic kidney disease, hx of severe aortic stenosis s/p TAVR 2 weeks ago, and anemia, 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 Bess at the [facility] and patient was transferred for further evaluation, unfortunately patient is a poor historian, most of the story is recorded from the chart and speaking with patient's daughter, upon arrival patient hemoglobin was 6.7, his stool Hemoccult was negative at other hospital most likely patient anemia of chronic disease, patient was given 1 pack of RBC, patient also has a fever chest x-ray did not show significant pathology however urine suspicious for UTI, I have started the patient on Rocephin and will follow-up on urine culture, patient also seen by neurologist and has ordered EEG to further evaluate patient myoclonic jerks. Currently patient does jerking movement of upper and lower ext extremities. 07/06/20 Patient doing okay daughter is bedside , I review with her his living will and code status. She agrees that he has stated in the past that he would not want extraordinary measures in the event that he lost his life. Patient's code status is updated to DNR (DNI if intubating would be futile). He has been seen by Neurology and placed on valproic acid for his myoclonic jerks. He has been seen by urology Thurston catheter has been placed and he will need to follow-up 7-10 days for Thurston removal in urologist's office. Additionally, he has been seen by nephrology and his renal function is improving now that urinary obstruction habits been overcome. 07/07/20 Patient with delirium superimposed on baseline dementia. He is cooperative but only oriented x1 and is hallucinating. Delirium precautions initiated. Rising creatinine today defer to Nephrology. Patient with serous fluid draining from right groin with unclear chronicity. Will speak with Dr. Bess for further information as this patient is well-known to him. Continue current care. Consult post acute care nurse. Anticipate need for discharge to SNF. Subjective Date/time seen: 07/07/20 09:08 Patient very confused sitting up side of th
--- NOTE | 2020-07-07 10:52 | WPDNEUROPN ---
Progress Note: A&P Assessment and Plan (1) Myoclonic jerking: Code(s): G25.3 - Myoclonus Status: Acute Additional Plan will start the patient on Depakote 500 mg q.12 hours Review of Systems Review of Systems: All systems reviewed & are unremarkable except as noted in HPI and below Exam Const: General: cooperative, comfortable and no acute distress Nutritional Appearance: average body habitus Orientation/consciousness: oriented to person and oriented to place Limitations: physical limitations HENMT: Head: normal to inspection Ears: hearing grossly normal bilaterally General nose exam: Normal external nose present Face and sinus: normal facial exam Mouth: Yes Normal oral and palatal mucosa present Neck: Neck: full ROM Resp: Effort & Inspection: normal respiratory effort Auscultation: clear to auscultation bilaterally Cardio: Rate: regular rate Rhythm: regular rhythm Skin: General skin exam: no rashes or lesions noted Neuro: General: oriented to person, oriented to place, moves all extremities and CN's II-XI intact bilaterally Cranial nerves: Yes CN's II-XII intact bilaterally Cognition (Neuro): normal cognition Speech: normal speech Gait exam (Neuro): Unable to assess gait Motor exam (neuro): Abnormal motor strength present Sensory Exam: Sensory deficit (Neuro) Deep tendon reflexes (DTR's): Right triceps reflex intensity grade: 1+, Left triceps reflex intensity grade: 1+, Rt Biceps (C5, C6): 1+, Left biceps reflex intensity grade: 1+, Right brachioradialis reflex intensity grade: 1+, Left brachioradialis reflex intensity grade: 1+, Right patellar reflex intensity grade: 1+, Left patellar reflex intensity grade: 1+, Right ankle reflex intensity grade: 1+ and Left ankle reflex intensity grade: 1+ Coordination: other ( recurrent short lasting widespread myoclonic jerks) Extrem: General: full ROM Objective Data Vital Signs Vital Signs: Vital Signs - 24 hr 07/06/20 14:00 07/06/20 20:48 07/06/20 22:00 Temperature 36.7 C 36.2 C L Pulse Rate 64 64 72 Respiratory Rate 18 18 Blood Pressure 112/48 L 138/73 Pulse Oximetry 100 100 07/07/20 06:00 07/07/20 08:02 Temperature 36.4 C Pulse Rate 64 66 Respiratory Rate 18 Blood Pressure 124/55 L Pulse Oximetry 98 Intake/Output Intake/Output: Intake & Output 07/04/20 07/05/20 07/06/20 07/07/20 23:59 23:59 23:59 23:59 Intake Total 915 1280 570 Output Total 350 1600 1100 Balance 289 -380 -710 Meds/Results Medications: Active Medications Generic Name Dose Route Start Last Admin Trade Name Memo PRN Reason Stop Dose Admin Acetaminophen 650 mg 07/05/20 11:12 07/05/20 11:27 Acetaminophen 325 Mg Tablet PO 650 mg Q6H PRN Administration As Needed for Fever or Pain Amlodipine Besylate 2.5 mg 07/06/20 09:00 07/07/20 08:02 Amlodipine Besylate 2.5 Mg Tablet PO 2.5 mg DAILY JULIETH Administration Aspirin 81 mg 07/06/20 09:00 07/07/20 08:04 Aspirin 81 Mg Enteric Tablet PO 81 mg DAILY JULIETH Administration Atorvastatin Calcium 20 mg 07/06/20 09:00 07/07/20 08:04 Atorvastatin 20 Mg Tablet PO 20 mg DAILY JULIETH Administration Carvedilol 6.25 mg 07/05/20 21:00 07/07/20 08:02 Carvedilol 6.25 Mg Tablet PO 6.25 mg Q12HR JULIETH Administration Clopidogrel Bisulfate 75 mg 07/06/20 09:00 07/07/20 08:04 Clopidogrel Bisulfate 75 Mg Tablet PO 75 mg DAILY JULIETH Administration Cyanocobalamin 1,000 mcg 07/06/20 09:00 07/07/20 08:02 Cyanocobalamin 1,000 Mcg Tablet PO 1,000 mcg DAILY JULIETH Administration Divalproex Sodium 500 mg 07/07/20 10:[address] 250 Mg Tabec PO Q12HR [facility] Epoetin Alex-epbx 10,000 units 07/06/20 18:30 07/06/20 18:58 Epoetin Alex-Epbx 10,000 Units/Ml Vial SUB-Q 10,000 units MOWEFR JULIETH Administration Famotidine 20 mg 07/05/20 21:00 07/07/20 08:01 Famotidine 20 Mg Tablet PO 20 mg Q12HR JULIETH Administration Ferrous Sulfate
[2020-07-07] MEDS: DIVALPROEX SODIUM DR 250 MG TABEC 500 MG PO ×2 (11:24→20:06)
--- NOTE | 2020-07-07 12:23 | PM.PNNEP ---
Progress Note: A&P Assessment and Plan (1) Renal failure (ARF), acute on chronic: Code(s): N17.9 - Acute kidney failure, unspecified; N18.9 - Chronic kidney disease, unspecified Status: Acute Assessment and Plan: Phong has chronic kidney disease. This is most likely due to diabetes and hypertension. His baseline was 2 in the summer of 2019. It was running in the threes between February and April. It was running in the 4s since May. The patient has acute kidney injury as well. His creatinine has been around 4. A catheter was placed by Urology and his creatinine improved to 3.3. It is stable since then. (2) Nonrheumatic aortic (valve) stenosis: Code(s): I35.0 - Nonrheumatic aortic (valve) stenosis Status: Acute Assessment and Plan: The patient had a TAVR 10 days ago (3) Essential (primary) hypertension: Code(s): I10 - Essential (primary) hypertension Status: Acute Assessment and Plan: His blood pressure is under fairly good control. He is on his home medications (4) Vascular dementia without behavioral disturbance: Code(s): F01.50 - Vascular dementia without behavioral disturbance Status: Acute Assessment and Plan: This was diagnosed by Neurology in 2019. he is still confused now. he was seen by Neurology. I discussed with and he has myoclonic jerks. This is not asterixis and is not an encephalopathic finding. He is trying Depakote to see if this gets better. (5) Type 2 diabetes mellitus without complications: Qualifiers: Diabetes mellitus meterman insulin use: without meterman use Qualified Code(s): E11.9 - Type 2 diabetes mellitus without complications Code(s): E11.9 - Type 2 diabetes mellitus without complications Status: Acute Assessment and Plan: On Accu-Cheks and sliding-scale insulin (6) Anemia: Code(s): D64.9 - Anemia, unspecified Status: Acute Assessment and Plan: Iron levels are low. He is on IV iron and EPO (7) Mixed hyperlipidemia: Code(s): E78.2 - Mixed hyperlipidemia Status: Acute Assessment and Plan: He is on repatha and atorvastatin Subjective Date/time seen: 07/07/20 12:23 Interval history: Phong is feeling about the same today. He is a bit confused. Still having myoclonic jerks Review of Systems Cardiovascular: Cardiovascular: Reports no additional cardiovascular complaints Respiratory: Respiratory: Reports no additional respiratory complaints Gastrointestinal: Gastrointestinal: Reports no additional gastrointestinal complaints Genitourinary: Genitourinary: Reports no additional male genitourinary complaints Exam Narrative: Exam Narrative: WDWN in NAD skin no rash or subcu nodules head ncat lungs clear to auscultation cor reg no rub or gallop abd BS+ nontender and soft ext no edema or cyanosis. Objective Data Vital Signs Vital Signs: Vital Signs - 24 hr 07/06/20 14:00 07/06/20 20:48 07/06/20 22:00 Temperature 36.7 C 36.2 C L Pulse Rate 64 64 72 Respiratory Rate 18 18 Blood Pressure 112/48 L 138/73 Pulse Oximetry 100 100 07/07/20 06:00 07/07/20 08:02 Temperature 36.4 C Pulse Rate 64 66 Respiratory Rate 18 Blood Pressure 124/55 L Pulse Oximetry 98 Intake/Output Intake/Output: Intake & Output 07/04/20 07/05/20 07/06/20 07/07/20 23:59 23:59 23:59 23:59 Intake Total 915 1330 570 Output Total 350 1600 1100 Balance 702 -321 -179 Meds/Results Medications: Active Medications Generic Name Dose Route Start Last Admin Trade Name Freq PRN Reason Stop Dose Admin Acetaminophen 650 mg 07/05/20 11:12 07/05/20 11:27 Acetaminophen 325 Mg Tablet PO 650 mg Q6H PRN Administration As Needed for Fever or Pain Amlodipine Besylate 2.5 mg 07/06/20 09:00 07/07/20 08:02 Amlodipine Besylate 2.5 Mg Tablet PO 2.5 mg DAILY [facility] Administrat
[2020-07-07 14:00] VITALS: BP 108/83; PULSE 57; RESP 20; TEMP 36.7; O2SAT 99
[2020-07-07 19:49] VITALS: O2SAT 99
[2020-07-07] MEDS: QUEtiapine FUMARATE 25 MG TABLET 50 MG PO (20:06)
[2020-07-07 20:07] VITALS: PULSE 56
[2020-07-07 22:00] VITALS: BP 114/54; PULSE 62; RESP 20; TEMP 36.6; O2SAT 98
[2020-07-07 23:35] LABS: Kappa\\Lambda Light Chains 1.11 (0.26-1.65); Lambda Light Chain 64.9 mg/L (5.7-26.3)
[2020-07-08] VITALS (10 sets, daily range): BP systolic 124–135; BP diastolic 42–62; PULSE 58–69; RESP 16–18; TEMP 36.4–37.2; O2SAT 98–99
[2020-07-08] MEDS: LEVOTHYROXINE SODIUM 100 MCG TABLET PO (05:55)
[2020-07-08 05:57] LABS: Basophils Percent Auto 0.8 % (0.2-1.2); Eosinophils Absolute Auto 0.2 K/mm3 (0-0.3); Hematocrit 23.2 % (42.0-52.0); Immature Granulocyte Absolute 0.03 K/mm3 (0.00-0.031); Immature Granulocyte Percent A 0.6 % (0-0.5); Lymphocytes Absolute Auto 0.97 K/mm3 (0.9-3.2); Lymphocytes Percent Auto 19.6 % (18.3-44.2); Mean Corpuscular HGB Conc 30.2 g/dl (32-36); Mean Corpuscular Hemoglobin 28.6 pg (26-34); Mean Corpuscular Volume 94.7 fl (80-100); Mean Platelet Volume 10.1 fl (7.4-10.4); Monocytes Absolute Auto 0.7 K/mm3 (0.1-0.6); Monocytes Percent Auto 13.9 % (2.6-8.5); Neutrophils Percent Auto 61.1 % (45.5-73.1); Platelet Count Result 178 k/mm3 (150-375); Red Blood Count 2.45 M/mm3 (4.6-6.20); Red Cell Distribution Width 13.2 % (11.5-14.5)
[2020-07-08 06:12] LABS: Anion Gap 1 mmol/L (8-16); Blood Urea Nitrogen 42 mg/dL (9-20); Calcium 8.5 mg/dL (8.4-10.2); Carbon Dioxide 32 mmol/L (22-30); Chloride 106 mmol/L (98-107); Estimated CRCL calculation 23 ml/min; Estimated Glomerular Filt Rate 18; Glucose 100 mg/dL (75-110); Potassium 3.5 mmol/L (3.4-5.0); Sodium 139 mmol/L (137-145)
[2020-07-08] MEDS: TAMSULOSIN HCL 0.4 MG CAPSULE PO (08:08)
[2020-07-08] MEDS: ASPIRIN 81 MG ENTERIC TABLET PO (08:08)
[2020-07-08] MEDS: OMEGA 3 POLYUNSAT FATTY ACIDS 1 GM CAP PO (08:10)
[2020-07-08] MEDS: ISOSORBIDE MONONITRATE 30 MG TAB.ER.24H PO (08:10)
[2020-07-08] MEDS: RANOLAZINE 500 MG TAB.ER.12H PO ×2 (08:10→20:20)
[2020-07-08] MEDS: FERROUS SULFATE 324 MG TABLET PO ×2 (08:10→17:35)
[2020-07-08] MEDS: CHOLECALCIFEROL 1,000 UNITS TABLET 2000 UNITS PO (08:10)
[2020-07-08] MEDS: PRAMIPEXOLE 1 MG TABLET PO ×2 (08:10→17:35)
[2020-07-08] MEDS: CLOPIDOGREL BISULFATE 75 MG TABLET PO (08:10)
[2020-07-08] MEDS: CYANOCOBALAMIN 1,000 MCG TABLET 1000 MCG PO (08:11)
[2020-07-08] MEDS: DIVALPROEX SODIUM DR 250 MG TABEC 500 MG PO ×2 (08:11→20:20)
[2020-07-08] MEDS: carvediloL 6.25 MG TABLET PO ×2 (08:11→20:20)
[2020-07-08] MEDS: FAMOTIDINE 20 MG TABLET PO ×2 (08:11→20:20)
[2020-07-08] MEDS: ATORVASTATIN 20 MG TABLET PO (08:11)
[2020-07-08] MEDS: amLODIPine BESYLATE 2.5 MG TABLET PO (08:12)
[2020-07-08] MEDS: SODIUM CHLORIDE 0.9% IV 250 ML 30 ML IV CONT (09:16)
[2020-07-08] MEDS: TUBING, BLOOD PLUM PUMP TUBING 1 EACH XX (09:16)
--- NOTE | 2020-07-08 10:20 | PM.PNNEP ---
Progress Note: A&P Assessment and Plan (1) Renal failure (ARF), acute on chronic: Code(s): N17.9 - Acute kidney failure, unspecified; N18.9 - Chronic kidney disease, unspecified Status: Acute Assessment and Plan: Phong has chronic kidney disease. This is most likely due to diabetes and hypertension. His baseline was 2 in the summer of 2019. It was running in the threes between February and April. It was running in the 4s since May. The patient has acute kidney injury as well. His creatinine has been around 4. A catheter was placed by Urology and his creatinine improved to 3.3. It is stable since then. will check an ultrasound to be sure that the hydronephrosis is better. Otherwise Urology could address. I do not think his mental status is due to the kidneys because he was like this in October when diagnosed with dementia and his myoclonic jerks have been going on since then as well. says that the myoclonic jerks are not from a metabolic cause. Okay for discharge from the kidney standpoint As long as the ultrasound is okay. Discussed with Dr. Black (2) Nonrheumatic aortic (valve) stenosis: Code(s): I35.0 - Nonrheumatic aortic (valve) stenosis Status: Acute Assessment and Plan: The patient had a TAVR 10 days ago (3) Essential (primary) hypertension: Code(s): I10 - Essential (primary) hypertension Status: Acute Assessment and Plan: His blood pressure is under fairly good control. He is on his home medications (4) Vascular dementia without behavioral disturbance: Code(s): F01.50 - Vascular dementia without behavioral disturbance Status: Acute Assessment and Plan: This was diagnosed by Neurology in 2019. he is still confused now. (5) Type 2 diabetes mellitus without complications: Qualifiers: Diabetes mellitus mcfp insulin use: without fitness attendant use Qualified Code(s): E11.9 - Type 2 diabetes mellitus without complications Code(s): E11.9 - Type 2 diabetes mellitus without complications Status: Acute Assessment and Plan: On Accu-Cheks and sliding-scale insulin (6) Anemia: Code(s): D64.9 - Anemia, unspecified Status: Acute Assessment and Plan: Iron levels are low. He is on IV iron and EPO (7) Mixed hyperlipidemia: Code(s): E78.2 - Mixed hyperlipidemia Status: Acute Assessment and Plan: He is on repatha and atorvastatin Subjective Date/time seen: 07/08/20 10:20 Interval history: Phong is feeling about the same today. He says his memory is not as good as it was and he also hallucinate. This has all been going on for a few months. He saw a neurologist back in October to diagnosed him with dementia. He also had the myoclonic jerks back then as well. Still having myoclonic jerks . These are about the same. Review of Systems Cardiovascular: Cardiovascular: Reports no additional cardiovascular complaints Respiratory: Respiratory: Reports no additional respiratory complaints Gastrointestinal: Gastrointestinal: Reports no additional gastrointestinal complaints Genitourinary: Genitourinary: Reports no additional male genitourinary complaints Exam Narrative: Exam Narrative: WDWN in NAD skin no rash or subcu nodules head ncat lungs clear Bilaterally cor reg no rub or gallop abd BS+ nontender and soft ext no edema Objective Data Vital Signs Vital Signs: Vital Signs - 24 hr 07/07/20 14:00 07/07/20 19:49 07/07/20 20:07 Temperature 36.7 C Pulse Rate 57 L 56 L Respiratory Rate 20 Blood Pressure 108/83 Pulse Oximetry 99 99 07/07/20 22:00 07/08/20 05:48 07/08/20 08:11 Temperature 36.6 C 36.5 C Pulse Rate 62 69 68 Respiratory Rate 20 18 Blood Pressure 114/54 L 128/55 L Pulse Oximetry 98 99 07/08/20 08:58 07/08/20 09:16 07/08/20 10:16 Temperature 36.4 C L 36.6 C 36.4 C Pulse
--- NOTE | 2020-07-08 10:34 | PCOTNOTE ---
Attempted to see patient for skilled OT session this AM. Per RN, patient is receiving blood and would like for therapy to wait about 2 hours before working with patient. Will continue per Plan of Care.
--- NOTE | 2020-07-08 10:44 | WPDCDIQUERY2 ---
CDI Query Clarification Request -Myoclonic jerking has been documented -07/06 EEG impression: This study compatible with the myoclonic seizures -Depakote 500mg q 12hrs started 07/07. Please clarify if there is a corresponding diagnosis/ possible diagnosis for symptom of myoclonic jerking.
[2020-07-08] MEDS: IRON SUCROSE COMPLEX 200 MG in SODIUM CHLORIDE 0.9% IV 50 ML 120 MG IVPB (12:12)
--- NOTE | 2020-07-08 13:58 | WPDNEUROPN ---
Progress Note: A&P Assessment and Plan (1) Myoclonic jerking: Code(s): G25.3 - Myoclonus Status: Acute (2) Vascular dementia without behavioral disturbance: Code(s): F01.50 - Vascular dementia without behavioral disturbance Status: Acute Additional Plan myoclonic seizures patient has been started on Depakote 500 q.12 hours the dose will be adjusted accordingly in addition patient has underlying dementia with vascular etiology Review of Systems Review of Systems: All systems reviewed & are unremarkable except as noted in HPI and below Exam Const: General: cooperative and no acute distress Nutritional Appearance: average body habitus Orientation/consciousness: oriented to person Limitations: behavioral limitations and physical limitations HENMT: Head: normocephalic Ears: hearing grossly normal bilaterally General nose exam: Normal external nose present Face and sinus: normal facial exam Mouth: Yes Normal oral and palatal mucosa present Eyes: General: appearance normal, both eyes and all related structures Neck: Neck: full ROM Resp: Effort & Inspection: normal respiratory effort Auscultation: clear to auscultation bilaterally Neuro: General: oriented to person and oriented to place Cranial nerves: Yes CN's II-XII intact bilaterally Cognition (Neuro): abnormal cognition Speech: Abnormal speech present Gait exam (Neuro): Unable to assess gait Motor exam (neuro): Abnormal motor strength present Sensory Exam: Sensory deficit (Neuro) Extrem: General: normal to inspection Objective Data Vital Signs Vital Signs: Vital Signs - 24 hr 07/07/20 14:00 07/07/20 19:49 07/07/20 20:07 Temperature 36.7 C Pulse Rate 57 L 56 L Respiratory Rate 20 Blood Pressure 108/83 Pulse Oximetry 99 99 07/07/20 22:00 07/08/20 05:48 07/08/20 08:11 Temperature 36.6 C 36.5 C Pulse Rate 62 69 68 Respiratory Rate 20 18 Blood Pressure 114/54 L 128/55 L Pulse Oximetry 98 99 07/08/20 08:58 07/08/20 09:16 07/08/20 10:16 Temperature 36.4 C L 36.6 C 36.4 C Pulse Rate 62 64 62 Respiratory Rate 18 18 18 Blood Pressure 134/57 L 129/62 126/61 Pulse Oximetry 99 98 98 07/08/20 11:16 07/08/20 11:58 Temperature 36.4 C 36.6 C Pulse Rate 63 60 Respiratory Rate 18 18 Blood Pressure 124/61 135/58 L Pulse Oximetry 99 98 Intake/Output Intake/Output: Intake & Output 07/05/20 07/06/20 07/07/20 07/08/20 23:59 23:59 23:59 23:59 Intake Total 915 7111 554 1496 Output Total 350 1600 2525 1300 Balance 565 -270 -1655 -40 Meds/Results Medications: Active Medications Generic Name Dose Route Start Last Admin Trade Name Freq PRN Reason Stop Dose Admin Acetaminophen 650 mg 07/05/20 11:12 07/05/20 11:27 Acetaminophen 325 Mg Tablet PO 650 mg Q6H PRN Administration As Needed for Fever or Pain Amlodipine Besylate 2.5 mg 07/06/20 09:00 07/08/20 08:12 Amlodipine Besylate 2.5 Mg Tablet PO 2.5 mg DAILY JULIETH Administration Aspirin 81 mg 07/06/20 09:00 07/08/20 08:08 Aspirin 81 Mg Enteric Tablet PO 81 mg DAILY JULIETH Administration Atorvastatin Calcium 20 mg 07/06/20 09:00 07/08/20 08:11 Atorvastatin 20 Mg Tablet PO 20 mg DAILY JULIETH Administration Carvedilol 6.25 mg 07/05/20 21:00 07/08/20 08:11 Carvedilol 6.25 Mg Tablet PO 6.25 mg Q12HR JULIETH Administration Clopidogrel Bisulfate 75 mg 07/06/20 09:00 07/08/20 08:10 Clopidogrel Bisulfate 75 Mg Tablet PO 75 mg DAILY JULIETH Administration Cyanocobalamin 1,000 mcg 07/06/20 09:00 07/08/20 08:11 Cyanocobalamin 1,000 Mcg Tablet PO 1,000 mcg DAILY JULIETH Administration Divalproex Sodium 500 mg 07/07/20 10:20 07/08/20 08:[address] 250 Mg Tabec PO 500 mg Q12HR JULIETH Administration Epoetin Alex-epbx 10,000 units 07/06/20 18:30 07/06/20 18:58 Epoetin Alex-Epbx 10,000 Units/Ml Vial SUB-Q 10,000 units MOWEFR JULIETH Administration Famotidine 20 mg 07/05/20 21:00
[2020-07-08 14:49] LABS: Hematocrit 24.1 % (42.0-52.0); Hemoglobin 7.5 g/dL (14.0-18.0)
--- NOTE | 2020-07-08 15:04 | PM.IMPN ---
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 Bess at the [facility] and patient was transferred for further evaluation, unfortunately patient is a poor historian, most of the story is recorded from the chart and speaking with patient's daughter, upon arrival patient hemoglobin was 6.7, his stool Hemoccult was negative at other hospital most likely patient anemia of chronic disease, patient was given 1 pack of RBC, patient also has a fever chest x-ray did not show significant pathology however urine suspicious for UTI, I have started the patient on Rocephin and will follow-up on urine culture, patient also seen by neurologist and has ordered EEG to further evaluate patient myoclonic jerks. Currently patient does jerking movement of upper and lower ext extremities. 07/06/20 Patient doing okay daughter is bedside , I review with her his living will and code status. She agrees that he has stated in the past that he would not want extraordinary measures in the event that he lost his life. Patient's code status is updated to DNR (DNI if intubating would be futile). He has been seen by Neurology and placed on valproic acid for his myoclonic jerks. He has been seen by urology Thurston catheter has been placed and he will need to follow-up 7-10 days for Thurston removal in urologist's office. Additionally, he has been seen by nephrology and his renal function is improving now that urinary obstruction habits been overcome. 07/07/20 Patient with delirium superimposed on baseline dementia. He is cooperative but only oriented x1 and is hallucinating. Delirium precautions initiated. Rising creatinine today defer to Nephrology. Patient with serous fluid draining from right groin with unclear chronicity. Will speak with Dr. Shahriar for further information as this patient is well-known to him. Continue current care. Consult veterinarian laboratory animal care. Anticipate need for discharge to SNF. 07/08/20 Patient still with pretty significant fluid draining from right groin. Will send for ultrasound to assess any fluid collection that is unable to be palpated and consult surgery is considered appropriate. Additionally patient has gone for ultrasound of the renal system to assess resolution of hydronephrosis. If patient continues to have significant hydronephrosis will consult urology for stent placement prior to discharge. Case reviewed with veterinarian laboratory animal care anticipate discharge in 24-48 hours home with daughter. Subjective Date/time seen: 07/08/20 15:04 Patient doing okay, cooperative, working with OT. He has ongoing serous fluid draining from right groin area. I reviewed his case with nephrology will order the ultrasound to rule out ongoing hydronephrosis prior to discharge. Exam Narrative: Exam Narrative: GEN: NAD, AAOx2, cooperative HEENT: NCAT, MMM, EOMI Neck: no JVD Lungs: CTA B/l Abd: soft, NT Ext: moves all, no cyanosis, no clubbing, no edema, right groin with well-healed scar w palpable subcutaneous scar tissue w small area noted to be weeping serous fluid, serous fluid collection cannot be appreciated under skin. : Thurston catheter in place. Objective Data Vital Signs Vital Signs: Vital Signs - 24 hr 07/07/20 19:49 07/07/20 20:07 07/07/20 22:00 Temperature 97.9 F Pulse Rate 56 L 62 Respiratory Rate 20 Blood Pressure
[2020-07-08] MEDS: EPOETIN ALFA-EPBX 10,000 UNITS/ML VIAL 10000 UNITS SUB-Q (17:43)
[2020-07-08] MEDS: QUEtiapine FUMARATE 25 MG TABLET 50 MG PO (20:20)
--- NOTE | 2020-07-08 23:26 | PC.NURSE ---
added patients medical hx to admission from the patient's paper chart.. -JESSIE RN
[2020-07-09] MEDS: LEVOTHYROXINE SODIUM 100 MCG TABLET PO (05:58)
[2020-07-09 06:00] VITALS: BP 150/58; PULSE 73; RESP 18; TEMP 36.2; O2SAT 99
[2020-07-09 06:49] LABS: Basophils Percent Auto 0.5 % (0.2-1.2); Eosinophils Absolute Auto 0.1 K/mm3 (0-0.3); Eosinophils Percent Auto 2.2 % (0-4.4); Hemoglobin 8.8 g/dL (14.0-18.0); Immature Granulocyte Absolute 0.03 K/mm3 (0.00-0.031); Immature Granulocyte Percent A 0.5 % (0-0.5); Lymphocytes Percent Auto 14.4 % (18.3-44.2); Mean Corpuscular HGB Conc 31.4 g/dl (32-36); Mean Corpuscular Hemoglobin 29.4 pg (26-34); Mean Corpuscular Volume 93.6 fl (80-100); Mean Platelet Volume 9.5 fl (7.4-10.4); Monocytes Absolute Auto 0.7 K/mm3 (0.1-0.6); Monocytes Percent Auto 12.6 % (2.6-8.5); Neutrophils Absolute Auto 3.9 K/mm3 (1.3-6.7); Neutrophils Percent Auto 69.8 % (45.5-73.1); Platelet Count Result 200 k/mm3 (150-375); Red Blood Count 2.99 M/mm3 (4.6-6.20); Red Cell Distribution Width 13.5 % (11.5-14.5); White Blood Count 5.5 K/mm3 (4.5-10.0)
[2020-07-09 07:01] LABS: Anion Gap 5 mmol/L (8-16); Blood Urea Nitrogen 34 mg/dL (9-20); Calcium 8.9 mg/dL (8.4-10.2); Carbon Dioxide 33 mmol/L (22-30); Chloride 104 mmol/L (98-107); Estimated CRCL calculation 26 ml/min; Estimated Glomerular Filt Rate 21; Glucose 104 mg/dL (75-110); Magnesium 2.1 mg/dL (1.6-2.3); Phosphorus 2.8 mg/dL (2.5-4.5); Potassium 3.4 mmol/L (3.4-5.0); Sodium 142 mmol/L (137-145)
[2020-07-09 08:00] VITALS: PULSE 74; RESP 18; O2SAT 99
--- NOTE | 2020-07-09 10:16 | PM.PNNEP ---
Progress Note: A&P Assessment and Plan (1) Renal failure (ARF), acute on chronic: Code(s): N17.9 - Acute kidney failure, unspecified; N18.9 - Chronic kidney disease, unspecified Status: Acute Assessment and Plan: Phong has chronic kidney disease. This is most likely due to diabetes and hypertension. His baseline was 2 in the summer of 2019. It was running in the threes between February and April. It was running in the 4s since May. The patient has acute kidney injury as well. His creatinine has been around 4. A catheter was placed by Urology and his creatinine improved to 3.3. Repeat ultrasound shows no hydro. Creatinine is down to 2.9 Okay for discharge today. He can see Dr. Garcia as an outpatient (2) Nonrheumatic aortic (valve) stenosis: Code(s): I35.0 - Nonrheumatic aortic (valve) stenosis Status: Acute Assessment and Plan: The patient had a TAVR 10 days ago (3) Essential (primary) hypertension: Code(s): I10 - Essential (primary) hypertension Status: Acute Assessment and Plan: His blood pressure is under fairly good control. He is on his home medications (4) Vascular dementia without behavioral disturbance: Code(s): F01.50 - Vascular dementia without behavioral disturbance Status: Acute Assessment and Plan: This was diagnosed by Neurology in 2019. he is still confused now. (5) Type 2 diabetes mellitus without complications: Qualifiers: Diabetes mellitus intermodal dispatcher insulin use: without longterm use Qualified Code(s): E11.9 - Type 2 diabetes mellitus without complications Code(s): E11.9 - Type 2 diabetes mellitus without complications Status: Acute Assessment and Plan: On Accu-Cheks and sliding-scale insulin (6) Anemia: Code(s): D64.9 - Anemia, unspecified Status: Acute Assessment and Plan: Iron levels are low. He is on IV iron and EPO (7) Mixed hyperlipidemia: Code(s): E78.2 - Mixed hyperlipidemia Status: Acute Assessment and Plan: He is on repatha and atorvastatin Subjective Date/time seen: 07/09/20 10:16 Interval history: Phong is feeling about the same today. He ate all of his breakfast Exam Narrative: Exam Narrative: WDWN in NAD skin no rash or subcu nodules head ncat lungs clear Bilaterally cor reg no rub or gallop abd BS+ nontender and soft ext no edema Objective Data Vital Signs Vital Signs: Vital Signs - 24 hr 07/08/20 11:16 07/08/20 11:58 07/08/20 14:00 Temperature 36.4 C 36.6 C 36.6 C Pulse Rate 63 60 68 Respiratory Rate 18 18 16 Blood Pressure 124/61 135/58 L 133/50 L Pulse Oximetry 99 98 98 07/08/20 20:20 07/08/20 22:00 07/09/20 06:00 Temperature 37.2 C 36.2 C L Pulse Rate 62 58 L 73 Respiratory Rate 18 18 Blood Pressure 131/42 L 150/58 H Pulse Oximetry 98 99 Intake/Output Intake/Output: Intake & Output 07/06/20 07/07/20 07/08/20 07/09/20 23:59 23:59 23:59 23:59 Intake Total 4744 250 6206 140 Output Total 1600 2525 2550 1850 Balance -270 -1605 -140 -1710 Meds/Results Medications: Active Medications Generic Name Dose Route Start Last Admin Trade Name Evelioq PRN Reason Stop Dose Admin Acetaminophen 650 mg 07/05/20 11:12 07/05/20 11:27 Acetaminophen 325 Mg Tablet PO 650 mg Q6H PRN Administration As Needed for Fever or Pain Amlodipine Besylate 2.5 mg 07/06/20 09:00 07/08/20 08:12 Amlodipine Besylate 2.5 Mg Tablet PO 2.5 mg DAILY JULIETH Administration Aspirin 81 mg 07/06/20 09:00 07/08/20 08:08 Aspirin 81 Mg Enteric Tablet PO 81 mg DAILY JULIETH Administration Atorvastatin Calcium 20 mg 07/06/20 09:00 07/08/20 08:11 Atorvastatin 20 Mg Tablet PO 20 mg DAILY JULIETH Administration Carvedilol 6.25 mg 07/05/20 21:00 07/08/20 20:20 Carvedilol 6.25 Mg Tablet PO 6.25 mg Q12HR JULIETH Administration Clopidogrel Bisulfate 75 mg
[2020-07-09] MEDS: CHOLECALCIFEROL 1,000 UNITS TABLET 2000 UNITS PO (10:33)
[2020-07-09] MEDS: ISOSORBIDE MONONITRATE 30 MG TAB.ER.24H PO (10:34)
[2020-07-09] MEDS: PRAMIPEXOLE 1 MG TABLET PO ×2 (10:34→18:26)
[2020-07-09] MEDS: OMEGA 3 POLYUNSAT FATTY ACIDS 1 GM CAP PO (10:34)
[2020-07-09] MEDS: DIVALPROEX SODIUM DR 250 MG TABEC 500 MG PO ×2 (10:34→20:27)
[2020-07-09] MEDS: CYANOCOBALAMIN 1,000 MCG TABLET 1000 MCG PO (10:35)
[2020-07-09] MEDS: FAMOTIDINE 20 MG TABLET PO ×2 (10:35→20:29)
[2020-07-09] MEDS: amLODIPine BESYLATE 2.5 MG TABLET PO (10:35)
[2020-07-09] MEDS: CLOPIDOGREL BISULFATE 75 MG TABLET PO (10:35)
[2020-07-09 10:36] VITALS: PULSE 74
[2020-07-09] MEDS: carvediloL 6.25 MG TABLET PO ×2 (10:36→20:28)
[2020-07-09] MEDS: TAMSULOSIN HCL 0.4 MG CAPSULE PO (10:36)
[2020-07-09] MEDS: ATORVASTATIN 20 MG TABLET PO (10:36)
[2020-07-09] MEDS: ASPIRIN 81 MG ENTERIC TABLET PO (10:36)
[2020-07-09] MEDS: FERROUS SULFATE 324 MG TABLET PO ×2 (10:37→18:26)
[2020-07-09] MEDS: IRON SUCROSE COMPLEX 200 MG in SODIUM CHLORIDE 0.9% IV 50 ML 120 MG IVPB (11:10)
[2020-07-09] MEDS: RANOLAZINE 500 MG TAB.ER.12H PO ×2 (13:34→20:28)
[2020-07-09 14:00] VITALS: BP 133/58; PULSE 67; RESP 20; TEMP 36.2; O2SAT 99
--- NOTE | 2020-07-09 14:06 | PM.IMPN ---
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: Code(s): I12.9 - Hypertensive chronic kidney disease with stage 1 through stage 4 chronic kidney disease, or unspecified chronic kidney disease; N18.4 - Chronic kidney disease, stage 4 (severe) Status: Acute Assessment and Plan: Resolving (4) Vascular dementia without behavioral disturbance: Code(s): F01.50 - Vascular dementia without behavioral disturbance Status: Acute Assessment and Plan: At baseline (5) Essential (primary) hypertension: Code(s): I10 - Essential (primary) hypertension Status: Acute Assessment and Plan: Near goal elevated blood pressure this morning prior to administration of a.m. meds. (6) Mixed hyperlipidemia: Code(s): E78.2 - Mixed hyperlipidemia Status: Acute (7) Type 2 diabetes mellitus without complications: Qualifiers: Diabetes mellitus ad terminal makeup operator insulin use: without ad terminal makeup operator use Qualified Code(s): E11.9 - Type 2 diabetes mellitus without complications Code(s): E11.9 - Type 2 diabetes mellitus without complications Status: Acute Assessment and Plan: Blood glucose at goal (8) Anemia: Code(s): D64.9 - Anemia, unspecified Status: Acute Assessment and Plan: Improving (9) Renal failure (ARF), acute on chronic: Code(s): N17.9 - Acute kidney failure, unspecified; N18.9 - Chronic kidney disease, unspecified Status: Acute Assessment and Plan: Resolving (10) Hydronephrosis: Code(s): N13.30 - Unspecified hydronephrosis Status: Acute Assessment and Plan: Resolved Additional Plan 07/05/20 13:07 Patient is 75-year-old male with history of acute on chronic kidney disease, hx of severe aortic stenosis s/p TAVR 2 weeks ago, and anemia, 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, while there his creatinine was significant elevated from his baseline, his senior brand manager Dr. Bess at the [facility] and patient was transferred for further evaluation, unfortunately patient is a poor historian, most of the story is recorded from the chart and speaking with patient's daughter, upon arrival patient hemoglobin was 6.7, his stool Hemoccult was negative at other hospital most likely patient anemia of chronic disease, patient was given 1 pack of RBC, patient also has a fever chest x-ray did not show significant pathology however urine suspicious for UTI, I have started the patient on Rocephin and will follow-up on urine culture, patient also seen by neurologist and has ordered EEG to further evaluate patient myoclonic jerks. Currently patient does jerking movement of upper and lower ext extremities. 07/06/20 Patient doing okay daughter is bedside , I review with her his living will and code status. She agrees that he has stated in the past that he would not want extraordinary measures in the event that he lost his life. Patient's code status is updated to DNR (DNI if intubating would be futile). He has been seen by Neurology and placed on valproic acid for his myoclonic jerks. He has been seen by urology Thurston catheter has been placed and he will need to follow-up 7-10 days for Thurston removal in urologist's off
[2020-07-09 20:28] VITALS: PULSE 83
[2020-07-09] MEDS: QUEtiapine FUMARATE 25 MG TABLET 50 MG PO (20:28)
[2020-07-09 20:30] VITALS: BP 133/56; PULSE 63; RESP 16; TEMP 36.6; O2SAT 98
[2020-07-10] MEDS: LEVOTHYROXINE SODIUM 100 MCG TABLET PO (05:46)
[2020-07-10 06:00] VITALS: BP 150/61; PULSE 68; RESP 16; TEMP 37.1; O2SAT 98
[2020-07-10 06:20] LABS: Basophils Percent Auto 0.8 % (0.2-1.2); Eosinophils Absolute Auto 0.1 K/mm3 (0-0.3); Eosinophils Percent Auto 2.4 % (0-4.4); Hemoglobin 7.9 g/dL (14.0-18.0); Immature Granulocyte Absolute 0.07 K/mm3 (0.00-0.031); Immature Granulocyte Percent A 1.4 % (0-0.5); Lymphocytes Absolute Auto 1.07 K/mm3 (0.9-3.2); Lymphocytes Percent Auto 21.4 % (18.3-44.2); Mean Corpuscular HGB Conc 30.4 g/dl (32-36); Mean Corpuscular Hemoglobin 28.8 pg (26-34); Mean Corpuscular Volume 94.9 fl (80-100); Mean Platelet Volume 9.8 fl (7.4-10.4); Monocytes Absolute Auto 0.8 K/mm3 (0.1-0.6); Platelet Count Result 194 k/mm3 (150-375); Red Blood Count 2.74 M/mm3 (4.6-6.20); Red Cell Distribution Width 13.6 % (11.5-14.5)
[2020-07-10 06:32] LABS: Anion Gap 1 mmol/L (8-16); Blood Urea Nitrogen 28 mg/dL (9-20); Calcium 8.6 mg/dL (8.4-10.2); Carbon Dioxide 34 mmol/L (22-30); Chloride 105 mmol/L (98-107); Estimated CRCL calculation 26 ml/min; Estimated Glomerular Filt Rate 21; Glucose 91 mg/dL (75-110); Phosphorus 2.7 mg/dL (2.5-4.5); Potassium 3.4 mmol/L (3.4-5.0); Sodium 140 mmol/L (137-145)
--- NOTE | 2020-07-10 08:31 | PM.PNNEP ---
Progress Note: A&P Assessment and Plan (1) Renal failure (ARF), acute on chronic: Code(s): N17.9 - Acute kidney failure, unspecified; N18.9 - Chronic kidney disease, unspecified Status: Acute Assessment and Plan: Phong has chronic kidney disease. This is most likely due to diabetes and hypertension. His baseline was 2 in the summer of 2019. It was running in the threes between February and April. It was running in the 4s since May. The patient has acute kidney injury as well. His creatinine has been around 4. A catheter was placed by Urology and his creatinine improved to 3.3. Repeat ultrasound shows no hydro. Creatinine is down to 2.9 and stable at this level. Dr. Garcia will be back to see him tomorrow. (2) Nonrheumatic aortic (valve) stenosis: Code(s): I35.0 - Nonrheumatic aortic (valve) stenosis Status: Acute Assessment and Plan: The patient had a TAVR earlier this month (3) Essential (primary) hypertension: Code(s): I10 - Essential (primary) hypertension Status: Acute Assessment and Plan: His blood pressure is under fairly good control. He is on his home medications (4) Vascular dementia without behavioral disturbance: Code(s): F01.50 - Vascular dementia without behavioral disturbance Status: Acute Assessment and Plan: This was diagnosed by Neurology in 2019. he is still confused now. (5) Type 2 diabetes mellitus without complications: Qualifiers: Diabetes mellitus [facility] insulin use: without [facility] use Qualified Code(s): E11.9 - Type 2 diabetes mellitus without complications Code(s): E11.9 - Type 2 diabetes mellitus without complications Status: Acute Assessment and Plan: On Accu-Cheks and sliding-scale insulin (6) Anemia: Code(s): D64.9 - Anemia, unspecified Status: Acute Assessment and Plan: Iron levels are low. He is on IV iron and EPO (7) Mixed hyperlipidemia: Code(s): E78.2 - Mixed hyperlipidemia Status: Acute Assessment and Plan: He is on repatha and atorvastatin Subjective Date/time seen: 07/10/20 08:31 Interval history: Phong is feeling about the same today. He is hungry for breakfast. No shortness of breath Review of Systems Cardiovascular: Cardiovascular: Reports no additional cardiovascular complaints Respiratory: Respiratory: Reports no additional respiratory complaints Gastrointestinal: Gastrointestinal: Reports no additional gastrointestinal complaints Genitourinary: Genitourinary: Reports no additional male genitourinary complaints Exam Narrative: Exam Narrative: WDWN in NAD skin no rash or subcu nodules head ncat lungs clear Bilaterally cor reg no rub or gallop abd BS+ nontender and soft ext no edema Objective Data Vital Signs Vital Signs: Vital Signs - 24 hr 07/09/20 10:36 07/09/20 14:00 07/09/20 20:28 Temperature 36.2 C L Pulse Rate 74 67 83 Respiratory Rate 20 Blood Pressure 133/58 L Pulse Oximetry 99 07/09/20 20:30 07/10/20 06:00 Temperature 36.6 C 37.1 C Pulse Rate 63 68 Respiratory Rate 16 16 Blood Pressure 133/56 L 150/61 H Pulse Oximetry 98 98 Intake/Output Intake/Output: Intake & Output 07/07/20 07/08/20 07/09/20 07/10/20 23:59 23:59 23:59 23:59 Intake Total 920 2470 1360 Output Total 2525 2550 2750 850 Balance -1605 -80 -1390 -850 Meds/Results Medications: Active Medications Generic Name Dose Route Start Last Admin Trade Name Freq PRN Reason Stop Dose Admin Acetaminophen 650 mg 07/05/20 11:12 07/05/20 11:27 Acetaminophen 325 Mg Tablet PO 650 mg Q6H PRN Administration As Needed for Fever or Pain Amlodipine Besylate 2.5 mg 07/06/20 09:00 07/09/20 10:35 Amlodipine Besylate 2.5 Mg Tablet PO 2.5 mg DAILY JULIETH Administration Aspirin 81 mg 07/06/20 09:00 07/09/20 10:36 Aspirin 81 Mg Enteric Tablet PO 81
--- NOTE | 2020-07-10 08:56 | PCOTNOTE ---
Patient treatment frequency reduced to 2-3x/wk due to increased confusion and limited ability to participate in skilled therapy services. Will increase/alter frequency as appropriate pending cognition
--- NOTE | 2020-07-10 08:56 | PM.IMPN ---
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 Bess at the [facility] and patient was transferred for further evaluation, unfortunately patient is a poor historian, most of the story is recorded from the chart and speaking with patient's daughter, upon arrival patient hemoglobin was 6.7, his stool Hemoccult was negative at other hospital most likely patient anemia of chronic disease, patient was given 1 pack of RBC, patient also has a fever chest x-ray did not show significant pathology however urine suspicious for UTI, I have started the patient on Rocephin and will follow-up on urine culture, patient also seen by neurologist and has ordered EEG to further evaluate patient myoclonic jerks. Currently patient does jerking movement of upper and lower ext extremities. 07/06/20 Patient doing okay daughter is bedside , I review with her his living will and code status. She agrees that he has stated in the past that he would not want extraordinary measures in the event that he lost his life. Patient's code status is updated to DNR (DNI if intubating would be futile). He has been seen by Neurology and placed on valproic acid for his myoclonic jerks. He has been seen by urology Thurston catheter has been placed and he will need to follow-up 7-10 days for Thurston removal in urologist's office. Additionally, he has been seen by nephrology and his renal function is improving now that urinary obstruction habits been overcome. 07/07/20 Patient with delirium superimposed on baseline dementia. He is cooperative but only oriented x1 and is hallucinating. Delirium precautions initiated. Rising creatinine today defer to Nephrology. Patient with serous fluid draining from right groin with unclear chronicity. Will speak with Dr. Shahriar for further information as this patient is well-known to him. Continue current care. Consult care transitions nurse. Anticipate need for discharge to SNF. 07/08/20 Patient still with pretty significant fluid draining from right groin. Will send for ultrasound to assess any fluid collection that is unable to be palpated and consult surgery is considered appropriate. Additionally patient has gone for ultrasound of the renal system to assess resolution of hydronephrosis. If patient continues to have significant hydronephrosis will consult urology for stent placement prior to discharge. Case reviewed with care transitions nurse anticipate discharge in 24-48 hours home with daughter. renal ultrasound revealed resolution of hydronephrosis yesterday Soft tissue ultrasound shows fluid collection approximately 6 x 5 x 3.5 cm at the site of pseudoaneurysm repair last month 05/26/[address] pena. I have called to his service and they agree to accept transfer back to [facility] for ongoing care. Will initiate transfer tomorrow Saturday. Renal function continues to improve Patient remains confused delirium superimposed on dementia Continue supportive care Subjective Date/time seen: 07/10/20 08:56 Exam Narrative: Exam Narrative: GEN: NAD, AAOx2, cooperative HEENT: NCAT, MMM, EOMI Neck: no JVD Abd: soft, NT, ND, bowel sounds normoactive Ext: moves all, no cyanosis, no clubbing, no edema Neuro: moves all extremities equally, no focal neurological deficits Objective Data Vital Signs Vital Signs: Jacinda
[2020-07-10] MEDS: IRON SUCROSE COMPLEX 200 MG in SODIUM CHLORIDE 0.9% IV 50 ML 120 MG IVPB (09:25)
[2020-07-10] MEDS: FERROUS SULFATE 324 MG TABLET PO (09:26)
[2020-07-10 09:27] VITALS: PULSE 74
[2020-07-10] MEDS: ATORVASTATIN 20 MG TABLET PO (09:27)
[2020-07-10] MEDS: amLODIPine BESYLATE 2.5 MG TABLET PO (09:27)
[2020-07-10] MEDS: carvediloL 6.25 MG TABLET PO (09:27)
[2020-07-10] MEDS: ASPIRIN 81 MG ENTERIC TABLET PO (09:27)
[2020-07-10] MEDS: DIVALPROEX SODIUM DR 250 MG TABEC 500 MG PO (09:29)
[2020-07-10] MEDS: CYANOCOBALAMIN 1,000 MCG TABLET 1000 MCG PO (09:29)
[2020-07-10] MEDS: CHOLECALCIFEROL 1,000 UNITS TABLET 2000 UNITS PO (09:29)
[2020-07-10] MEDS: CLOPIDOGREL BISULFATE 75 MG TABLET PO (09:29)
[2020-07-10] MEDS: ISOSORBIDE MONONITRATE 30 MG TAB.ER.24H PO (09:30)
[2020-07-10] MEDS: OMEGA 3 POLYUNSAT FATTY ACIDS 1 GM CAP PO (09:30)
[2020-07-10] MEDS: FAMOTIDINE 20 MG TABLET PO (09:30)
[2020-07-10] MEDS: PRAMIPEXOLE 1 MG TABLET PO (09:31)
[2020-07-10] MEDS: TAMSULOSIN HCL 0.4 MG CAPSULE PO (09:31)
[2020-07-10] MEDS: RANOLAZINE 500 MG TAB.ER.12H PO (09:31)
--- NOTE | 2020-07-10 10:31 | PM.DS ---
DS: Admitting Diagnosis Admitting Diagnosis Admitting Diagnosis: Acute the worsening encephalopathy LELAND on CKD 4 Vascular dementia without behavioral disturbances Myoclonic jerks BPH Urinary obstruction/retention w bilateral hydronephrosis HTN HLD DM Anemia of chronic disease DS: Discharge Diagnosis Discharge Diagnosis (1) BPH (benign prostatic hyperplasia): Code(s): N40.0 - Benign prostatic hyperplasia without lower urinary tract symptoms Status: Acute Assessment and Plan: Thurston catheter in place (2) Myoclonic jerking: Code(s): G25.3 - Myoclonus Status: Acute Assessment and Plan: Started on valproic acid (3) CKD stage 4 secondary to hypertension: Code(s): I12.9 - Hypertensive chronic kidney disease with stage 1 through stage 4 chronic kidney disease, or unspecified chronic kidney disease; N18.4 - Chronic kidney disease, stage 4 (severe) Status: Acute Assessment and Plan: Resolving (4) Vascular dementia without behavioral disturbance: Code(s): F01.50 - Vascular dementia without behavioral disturbance Status: Acute Assessment and Plan: At baseline (5) Essential (primary) hypertension: Code(s): I10 - Essential (primary) hypertension Status: Acute Assessment and Plan: Near goal elevated blood pressure this morning prior to administration of a.m. meds. (6) Mixed hyperlipidemia: Code(s): E78.2 - Mixed hyperlipidemia Status: Acute (7) Type 2 diabetes mellitus without complications: Qualifiers: Diabetes mellitus long term care pharmacist insulin use: without custodial use Qualified Code(s): E11.9 - Type 2 diabetes mellitus without complications Code(s): E11.9 - Type 2 diabetes mellitus without complications Status: Acute Assessment and Plan: Blood glucose at goal (8) Anemia: Code(s): D64.9 - Anemia, unspecified Status: Acute Assessment and Plan: Improving (9) Renal failure (ARF), acute on chronic: Code(s): N17.9 - Acute kidney failure, unspecified; N18.9 - Chronic kidney disease, unspecified Status: Acute Assessment and Plan: Resolving (10) Hydronephrosis: Code(s): N13.30 - Unspecified hydronephrosis Status: Acute Assessment and Plan: Resolved DS: Summary Hospital Course Reason for hospitalization: worsening confusion Hospital Course: 75-year-old male admitted to the hospital with acute urinary retention found to have bilateral hydronephrosis and enlarged prostate. Urology was consulted Thurston catheter was placed and patient was started on Flomax. Additionally, his associated LELAND on CKD improved with Thurston insertion and nephrology was consulted and helped guide medical management. Suspect that new baseline creatinine will be somewhere in the high 2s. During this hospitalization patient was incidentally noted to have serous fluid draining from right groin at site of previous pseudoaneurysm repair. Dr. pena vascular surgeon was contacted to discuss these findings. He requested that patient be discharged home and follow-up in his office next week. Patient is discharged home in stable condition with home health care to the care of his daughter. 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 Bess at the [facility] and patient was transf
[2020-07-11 00:16] LABS: Complement Total CH50 <10 U/mL (31-60)
[2020-07-12 14:44] LABS: Albumin 37 %; Creat 24 Hr 2.15 g/24 h (0.50-2.15); Pro/Creat Ratio 1332 mg/g creat (<115)
== END 2020-07-10 12:25 | disposition home health service (06) | DRG 683 ==
PROVIDERS: Family Medicine; Internal Medicine Nephrology; Admitting Provider Family Medicine; PCP Family Medicine; Visit Provider Hospitalist
DX: N17.9 Acute kidney failure, unspecified (principal); I97.648 Postprocedural seroma of a circulatory system organ or structure following other circulatory system procedure; N18.4 Chronic kidney disease, stage 4 (severe); I12.9 Hypertensive chronic kidney disease with stage 1 through stage 4 chronic kidney disease, or unspecified chronic kidney disease; E11.22 Type 2 diabetes mellitus with diabetic chronic kidney disease; G40.409 Other generalized epilepsy and epileptic syndromes, not intractable, without status epilepticus; Z95.2 Presence of prosthetic heart valve; E78.5 Hyperlipidemia, unspecified; N13.30 Unspecified hydronephrosis; Z66 Do not resuscitate; N40.0 Benign prostatic hyperplasia without lower urinary tract symptoms
CPT/HCPCS: 36415; 36430; 76775; 76882; 80048; 80053; 80069; 81001; 82550; 82570; 82728; 83540; 83550; 83735; 83883; 83970; 84100; 84156; 84300; 85014; 85018; 85025; 85027; 85046; 85652; 85999; 86038; 86160; 86162; 86335; 86850; 86900; 86901; 86923; 87040; 87086; 95816; 97110; 97116; 97161; 97166; 97530; 97535; A9270; J0696; J1756; J7050; P9016; Q5106

== ENCOUNTER 2020-12-03 18:33 | Inpatient (IN) | payer MEDICARE, SELFPAY ==
--- NOTE | ~2020-12-03 | XR_ITS ---
XR chest 1V portable DATE: 12/03/2020 19:01 INDICATION: Weakness. Myocardial infarction, hypertension, coronary artery stent. TECHNIQUE: Portable upright AP chest on 12/03/2020 at 1852 hours COMPARISON: 11/30/2018 two-view chest 12/11/2018 CT chest abdomen pelvis FINDINGS: Cardiomegaly. Aortic valve replacement. Aortic calcification, ectasia and tortuosity. There is pulmonary vascular congestion and redistribution. There are bilateral relatively central and lower lung infiltrates suggesting pulmonary edema. Pneumonia is not excluded. No pleural effusion or pneumothorax is detected. There is prominent dextroscoliosis of the thoracic spine. Diffuse osteopenia. IMPRESSION: Cardiomegaly, pulmonary vascular congestion and redistribution, bilateral relatively cent ral and basilar infiltrate, suggesting pulmonary edema. Pneumonia is not excluded Status post aortic valve replacement Reviewed, dictated and finalized at location A. IMPRESSION: Cardiomegaly, pulmonary vascular congestion and redistribution, nikki ateral relatively central and basilar infiltrate, suggesting pulmonary edema. P neumonia is not excluded Status post aortic valve replacement
[2020-12-03 18:03] VITALS: BP 160/96; PULSE 84; RESP 18; TEMP 36.3; O2SAT 98
--- NOTE | 2020-12-03 18:30 | ECG_ITS ---
Measurements Intervals [place] Rate: 92 P: 56 MO: 190 QRS: -36 QRSD: 146 T: 104 QT: 380 QTc: 470 Interpretive Statements SINUS RHYTHM VENTRICULAR PREMATURE COMPLEXES LEFT AXIS DEVIATION INTRAVENTRICULAR CONDUCTION DELAY LEFT VENTRICULAR HYPERTROPHY WITH ST-T CHANGE CANNOT RULE OUT SEPTAL INFARCT, AGE INDETERMINATE CONSIDER HIGH LATERAL INFARCT, AGE INDETERMINATE BASELINE ARTIFACT- I, II, III, AVR, V1-V3 ABNORMAL ECG Electronically Signed On 12-03-2020 20:17:41 CDT by Jakob Doherty D.O.
[2020-12-03 19:17] LABS: Basophils Percent Auto 0.6 % (0.2-1.2); Eosinophils Percent Auto 0.3 % (0-4.4); Hematocrit 31.2 % (42.0-52.0); Hemoglobin 9.8 g/dL (14.0-18.0); Immature Granulocyte Absolute 0.02 K/mm3 (0.00-0.031); Immature Granulocyte Percent A 0.6 % (0-0.5); Lymphocytes Absolute Auto 0.83 K/mm3 (0.9-3.2); Lymphocytes Percent Auto 23.9 % (18.3-44.2); Mean Corpuscular HGB Conc 31.4 g/dl (32-36); Mean Corpuscular Hemoglobin 30.1 pg (26-34); Mean Corpuscular Volume 95.7 fl (80-100); Mean Platelet Volume 10.3 fl (7.4-10.4); Monocytes Absolute Auto 0.6 K/mm3 (0.1-0.6); Monocytes Percent Auto 16.7 % (2.6-8.5); Neutrophils Percent Auto 57.9 % (45.5-73.1); Platelet Count Result 100 k/mm3 (150-375); Red Blood Count 3.26 M/mm3 (4.6-6.20); Red Cell Distribution Width 13.6 % (11.5-14.5); White Blood Count 3.5 K/mm3 (4.5-10.0)
[2020-12-03 19:26] LABS: Alanine Aminotransferase 23 U/L (4-50); Albumin Level 3.1 g/dL (3.5-5.1); Alkaline Phosphatase 82 U/L (38-126); Anion Gap 5 mmol/L (8-16); Aspartate Amino Transferase 28 U/L (17-59); Bilirubin,Total 0.3 mg/dL (0.2-1.3); Blood Urea Nitrogen 34 mg/dL (9-20); Calcium 8.7 mg/dL (8.4-10.2); Carbon Dioxide 30 mmol/L (22-30); Chloride 108 mmol/L (98-107); Estimated CRCL calculation 30 ml/min; Estimated Glomerular Filt Rate 27; Glucose 100 mg/dL (65-110); Potassium 4.2 mmol/L (3.4-5.0); Sodium 143 mmol/L (137-145)
--- NOTE | 2020-12-03 20:09 | ED.WEAKNESS ---
HPI - Weakness General Chief complaint: Weakness Stated complaint: TREMORS Source: patient, family and RN notes reviewed Mode of arrival: EMS Limitations: dementia History of Present Illness HPI Narrative: This is a 75 year old male with history of tremors, dementia, chronic kidney disease who presents with his daughter concerned for worsening tremors. She states patient has long standing tremors for years. She was told by his facility that patient was having uncontrollable shaking when he was eating. Patient reports some weakness. His daughter is concerned that patient may be having an issue with his kidneys to cause his tremors. She is also concerned about a UTI. She denies patient having any falls this week. Patient denies headache, nausea, vomiting, chest pain, abdominal pain, cough or shortness of breath. Related Data Home Medications Medication Instructions Recorded Confirmed Repatha Syringe 3.5 ml SUBCUT DAILY 02/28/19 07/15/20 aspirin [Aspir-81] 81 mg PO DAILY 02/28/19 07/15/20 cinnamon bark [Cinnamon] 500 mg PO DAILY 02/28/19 07/15/20 cyanocobalamin (vitamin B-12) 1,000 mcg PO DAILY 02/28/19 07/15/20 [Vitamin B-12] ferrous sulfate [Feosol] 325 mg PO BID 02/28/19 07/15/20 fish ebb-dfzas-0-vit C-vit E 1,000 mg PO DAILY 02/28/19 07/15/20 isosorbide mononitrate 30 mg PO DAILY 02/28/19 07/15/20 nitroglycerin [Nitrostat] 0.4 mg SUBLINGUAL Q5-15M PRN 02/28/19 07/15/20 ranolazine 500 mg PO Q12H 02/28/19 07/15/20 atorvastatin 20 mg tablet 20 mg PO DAILY 05/08/19 07/15/20 acetaminophen 325 mg PO PRN 07/05/20 07/15/20 cholecalciferol (vitamin D3) 50 mcg PO DAILY 07/05/20 07/15/20 furosemide 40 mg PO DAILY 07/05/20 07/15/20 quetiapine 50 mg PO DAILY 07/05/20 07/15/20 Allergies Allergy/AdvReac Type Severity Reaction Status Date / Time No Known Allergies Allergy Verified 12/03/20 18:18 Review of Systems Review of Systems: All systems reviewed & are unremarkable except as noted in HPI and below PMFSH Past Medical History Medical History Anemia Was getting iron infusions Angina of effort Arm fracture Congenital hip deformity Right hip dislocation, congenital GERD (gastroesophageal reflux disease) H/O non-insulin dependent diabetes mellitus HLD (hyperlipidemia) HTN (hypertension) Hyperthyroidism Legally blind in left eye, as defined in [place] Myocardial infarction Surgical History Surgical History History of right hip replacement Hx of cardiac cath Hx of tonsillectomy Stented coronary artery Family History Family History Father Acute myocardial infarction, Onset Age: 59 Family history of cardiovascular disease Grandparent Family history of cardiovascular disease Family history of malignant neoplasm Family history of malignant neoplasm of bone Social History Social History Smoking status: Never smoker Alcohol intake: never Substance use: never Spiritual care concerns: No Exam Const: General: no acute distress and alert Other: oriented to self HENMT: Head: normocephalic and atraumatic Face and sinus: face symmetric Mouth: Yes Normal oral and palatal mucosa present, Yes lip normal, Yes oropharynx normal and Yes moist mucous membranes Eyes: EOM: EOMs intact bilaterally Resp: Effort & Inspection: normal respiratory effort and no retractions Auscultation: clear to auscultation bilaterally Cardio: Rate: regular rate Rhythm: regular rhythm Heart sounds: no murmurs GI: GI Palp: Yes Soft to palpation, No Tenderness to palpation present (GI) and No Guarding due to palpation present (GI) Auscultation: normal bowel sounds Skin: General skin exam: normal color Rashes: no rashes Neuro: General: moves all extremities and CN's II-XI intact bilaterally Other:
[2020-12-03 20:15] VITALS: PULSE 89; RESP 16; TEMP 38.6; O2SAT 98
[2020-12-03 21:03] LABS: Lactic Acid Reflex 0.5 mmol/L (0.7-2.1)
[2020-12-03 21:17] LABS: Troponin I 0.036 ng/mL (0.000-0.034)
[2020-12-03 21:25] VITALS: BP 174/83; PULSE 87; RESP 17
[2020-12-03 21:29] LABS: Add Urine Microscopic? YES; Appearance Urine Clear (Clear); Bilirubin Urine Negative (Negative); Blood Urine Negative (Negative); Color Urine Straw (Yellow); Glucose Urine UA Negative (Negative); Ketones Urine Negative (Negative); Leukocyte Esterase Ur Negative LEU/UL (Negative); Mucus Urine Rare /lpf; Nitrate Urine Negative (Negative); Protein Urine Negative (Negative); RBC Urine 0-2 /hpf (0-2); Specific Grav Ur 1.013 (1.001-1.035); Urobilinogen Urine Negative mg/dL (<2.0); WBC Urine 0-3 /hpf
[2020-12-03 21:31] LABS: NT Pro B Type Natriuretic Pept 1870 pg/mL (5-100)
[2020-12-03 22:32] VITALS: BP 127/65; PULSE 91; RESP 18; O2SAT 99
--- NOTE | 2020-12-03 23:51 | PM.IMHP ---
H&P: HPI History of Present Illness Date/Time: 12/03/20 23:52 Chief Complaint: Tremor Narrative: This is a 75-year-old male with past medical history significant for Alzheimer's dementia, intracerebral bleed after fall, chronic kidney disease, hypertension, severe aortic stenosis status post TAVR recent hospitalization for fall and intracranial bleed. Patient was noticed today to have tremors worse than usual and was brought to the emergency room for further assessment and evaluation. Preliminary workup was significant for chest x-ray with infiltrates. Patient is unable to give any history he knows that he is at [facility] however does not note the time of day or why he is there. BMP shows a creatinine of 2.4, brain natriuretic peptide of 1870 a troponin of 0.0386 patient also had a rectal temperature of 101.4. Decision has been made to admit the patient for further assessment and evaluation. Review of Systems Review of Systems: ROS unobtainable: Yes unobtainable due to mental status (Dementia) [facility] Past Medical History Medical History Anemia Was getting iron infusions Angina of effort Arm fracture Congenital hip deformity Right hip dislocation, congenital GERD (gastroesophageal reflux disease) H/O non-insulin dependent diabetes mellitus HLD (hyperlipidemia) HTN (hypertension) Hyperthyroidism Legally blind in left eye, as defined in [place] Myocardial infarction Surgical History Surgical History History of right hip replacement Hx of cardiac cath Hx of tonsillectomy Stented coronary artery Family History Family History Father Acute myocardial infarction, Onset Age: 59 Family history of cardiovascular disease Grandparent Family history of cardiovascular disease Family history of malignant neoplasm Family history of malignant neoplasm of bone Social History Social History Smoking status: Never smoker Second hand tobacco smoke exposure: Yes ( smoked) Alcohol intake: never Substance use: never Spiritual care concerns: No Meds Home Medications and Allergies Home Medications Medication Instructions Recorded Confirmed Type aspirin [Aspir-81] 81 mg PO DAILY 02/28/19 07/15/20 History cinnamon bark [Cinnamon] 500 mg PO DAILY 02/28/19 07/15/20 History cyanocobalamin (vitamin B-12) 1,000 mcg PO DAILY 02/28/19 07/15/20 History [Vitamin B-12] ferrous sulfate [Feosol] 325 mg PO BID 02/28/19 07/15/20 History fish tlu-kexos-9-vit C-vit E 1,000 mg PO DAILY 02/28/19 07/15/20 History nitroglycerin [Nitrostat] 0.4 mg SUBLINGUAL Q5-15M PRN 02/28/19 07/15/20 History ranolazine 500 mg PO Q12H 02/28/19 07/15/20 History atorvastatin 20 mg tablet 20 mg PO DAILY 05/08/19 07/15/20 History levothyroxine 100 mcg tablet 100 mcg PO DAILY #90 tablet 07/03/19 07/15/20 Rx clopidogrel 75 mg tablet 75 mg PO DAILY #90 tablet 08/03/19 07/15/20 Rx saxagliptin 2.5 mg tablet 2.5 mg PO DAILY #90 tablet 02/19/20 07/15/20 Rx famotidine 20 mg tablet 20 mg PO BID #60 tablet 02/26/20 07/15/20 Rx acetaminophen 325 mg PO PRN 07/05/20 07/15/20 History cholecalciferol (vitamin D3) 50 mcg PO DAILY 07/05/20 07/15/20 History quetiapine 50 mg PO DAILY 07/05/20 07/15/20 History pramipexole 1 mg tablet See Rx Instructions .ROUTE 08/18/20 Rx .COMPLEX #60 tablet tamsulosin 0.4 mg capsule See Rx Instructions .ROUTE 08/26/20 Rx .COMPLEX #90 cap Lactobacillus acidoph-pectin 1 tablet PO BID 12/04/20 12/04/20 History [Acidophilus-Pectin] divalproex [Depakote] 250 mg PO Q12HR 12/04/20 12/04/20 History donepezil 5 mg PO HS 12/04/20 12/04/20 History ferrous sulfate 325 mg PO BID 12/04/20 12/04/20 History Allergies Allergy/AdvReac Type Severity Reaction Status Date / Time No Known Allergies Allergy Verified 12/03
[2020-12-04] VITALS (13 sets, daily range): BP systolic 126–159; BP diastolic 57–81; PULSE 63–88; RESP 16–18; TEMP 36.5–36.9; O2SAT 95–100
[2020-12-04] MEDS: FUROSEMIDE INJ 40 MG/4 ML VIAL IV PUSH (00:01)
--- NOTE | 2020-12-04 02:00 | ADMGEN ---
This patient, Phong Red, was admitted to IMU Room 231-01. Patient/family oriented to hospital policies and general routines including ID bracelet, bed and alarms, visiting hours, pain management, procedures, bathroom and other care routines, personal items, smoking policy, room service/diet, and visiting hours. Information on how to activate the Rapid Response Team has been discussed. Patient/Family are encouraged to report perceived risks to care and to ask questions if they do not understand what they are told or what they should do.
[2020-12-04 04:33] LABS: Basophils Percent Auto 0.4 % (0.2-1.2); Hematocrit 31.6 % (42.0-52.0); Immature Granulocyte Absolute 0.02 K/mm3 (0.00-0.031); Immature Granulocyte Percent A 0.4 % (0-0.5); Mean Corpuscular HGB Conc 31.6 g/dl (32-36); Mean Corpuscular Hemoglobin 30.2 pg (26-34); Mean Corpuscular Volume 95.5 fl (80-100); Mean Platelet Volume 9.9 fl (7.4-10.4); Monocytes Absolute Auto 0.8 K/mm3 (0.1-0.6); Monocytes Percent Auto 16.7 % (2.6-8.5); Neutrophils Absolute Auto 2.6 K/mm3 (1.3-6.7); Neutrophils Percent Auto 56.5 % (45.5-73.1); Platelet Count Result 96 k/mm3 (150-375); Red Blood Count 3.31 M/mm3 (4.6-6.20); Red Cell Distribution Width 13.8 % (11.5-14.5); White Blood Count 4.6 K/mm3 (4.5-10.0)
[2020-12-04 04:44] LABS: Anion Gap 4 mmol/L (8-16); Blood Urea Nitrogen 33 mg/dL (9-20); Calcium 8.5 mg/dL (8.4-10.2); Carbon Dioxide 32 mmol/L (22-30); Chloride 104 mmol/L (98-107); Estimated CRCL calculation 30 ml/min; Estimated Glomerular Filt Rate 27; Glucose 92 mg/dL (65-110); Potassium 3.8 mmol/L (3.4-5.0); Sodium 140 mmol/L (137-145)
[2020-12-04] MEDS: LEVOTHYROXINE SODIUM 100 MCG TABLET PO (06:18)
[2020-12-04] MEDS: FERROUS SULFATE 324 MG TABLET PO ×2 (08:14→17:01)
[2020-12-04] MEDS: CHOLECALCIFEROL 1,000 UNITS TABLET 2000 UNITS PO (08:15)
[2020-12-04] MEDS: ACIDOPHILUS/BULGARICUS CHEWABLE TABLET 1 TABLET PO ×2 (08:15→17:03)
[2020-12-04] MEDS: ATORVASTATIN 20 MG TABLET PO (08:15)
[2020-12-04] MEDS: CYANOCOBALAMIN 1,000 MCG TABLET 1000 MCG PO (08:15)
[2020-12-04] MEDS: QUEtiapine FUMARATE 25 MG TABLET 50 MG PO ×2 (08:16→20:55)
[2020-12-04] MEDS: DIVALPROEX SODIUM DR 250 MG TABEC PO ×2 (08:16→20:55)
[2020-12-04] MEDS: FAMOTIDINE 20 MG TABLET PO ×2 (08:16→17:01)
[2020-12-04] MEDS: OMEGA 3 POLYUNSAT FATTY ACIDS 1 GM CAP PO (08:16)
[2020-12-04] MEDS: PRAMIPEXOLE 1 MG TABLET BY MOUTH ×2 (08:17→17:02)
[2020-12-04 09:44] LABS: Glucose Point of Care 91 mg/dl (65-105)
[2020-12-04 09:44] LABS: Glucose Point of Care > 500 mg/dl (65-105)
--- NOTE | 2020-12-04 10:31 | PM.IMPN ---
Progress Note: A&P Assessment and Plan (1) Pneumonia: Code(s): J18.9 - Pneumonia, unspecified organism Status: Acute Assessment and Plan: Patient started on cefepime and vancomycin Await cultures Recent hospitalization in August of 2020 Has been swabbed for COVID-19 Supportive care (2) Fever: Code(s): R50.9 - Fever, unspecified Status: Acute Assessment and Plan: Tylenol as needed Supportive care (3) Person under investigation for COVID-19: Code(s): Z20.822 - Contact with and (suspected) exposure to COVID-19 Status: Acute Assessment and Plan: Awaiting serology results (4) Chronic kidney disease (CKD): Code(s): N18.9 - Chronic kidney disease, unspecified Status: Acute Assessment and Plan: BUN and creatinine at patient's baseline Continue to monitor (5) Vascular dementia without behavioral disturbance: Code(s): F01.50 - Vascular dementia without behavioral disturbance Status: Acute Assessment and Plan: Patient is on quetiapine (6) Essential (primary) hypertension: Code(s): I10 - Essential (primary) hypertension Status: Acute Assessment and Plan: Continue home meds Continue to monitor (7) Nonrheumatic aortic (valve) stenosis: Code(s): I35.0 - Nonrheumatic aortic (valve) stenosis Status: Acute Assessment and Plan: Status post TAVR PATIENT HAD PLAVIX AND ASPIRIN. AFTER FALL WITH INTRACRANIAL BLEED. (8) Type 2 diabetes mellitus without complications: Qualifiers: Diabetes mellitus snf insulin use: without terminal block assembler use Qualified Code(s): E11.9 - Type 2 diabetes mellitus without complications Code(s): E11.9 - Type 2 diabetes mellitus without complications Status: Acute Assessment and Plan: ACCU-CHEKS AC AND HS HOLDING SAXAGLIPTIN (9) BPH (benign prostatic hyperplasia): Code(s): N40.0 - Benign prostatic hyperplasia without lower urinary tract symptoms Status: Acute Assessment and Plan: CONTINUE TAMSULOSIN Additional Plan Patient is DNR. Will continue current plan of care and treatment. COVID test pending. Will start physical therapy. Monitor labs, x-ray and oxygen. Subjective Date/time seen: 12/04/20 10:31 Patient was seen during the morning rounds today. Mild shortness of breath, no chest pain. No abdominal pain, no nausea, no vomiting. Mood stable. Review of Systems Review of Systems: ROS unobtainable: Yes unobtainable due to mental status (Dementia) Exam Narrative: Laying in [place] Const: General: cooperative, comfortable, no acute distress, well developed, alert, awake and other (Well-appearing) Nutritional Appearance: average body habitus Orientation/consciousness: oriented to person and oriented to place HENMT: Head: normal to inspection, normocephalic and atraumatic Ears: hearing grossly normal bilaterally General nose exam: Normal external nose present Face and sinus: normal facial exam Eyes: General: appearance normal, both eyes and all related structures Alignment and Position: alignment normal Sclera: sclerae normal Pupils: Equal, round and reactive pupils present EOM: EOMs intact bilaterally Neck: Neck: normal visual inspection, full ROM, no lymphadenopathy, supple and no JVD Thyroid: thyroid normal Lymphatic: no lymphadenopathy noted Resp: Effort & Inspection: normal respiratory effort and able to speak in complete sentences Auscultation: clear to auscultation bilaterally, no crackles, no rales, no rhonchi and no wheezes Cardio: Jugular venous distension: no JVD Rate: regular rate Rhythm: regular rhythm Heart sounds: S1 normal heart sound present and S2 normal heart sound present : General: Yes deferred Skin: Rashes: no rashes Wounds: no wounds Neuro: General: oriented to person, oriented to place, no focal motor deficits, CN's II-XI intact bilaterally and Unable to assess gait Cranial ne
[2020-12-04 13:52] LABS: Glucose Point of Care 86 mg/dl (65-105)
[2020-12-04] MEDS: TAMSULOSIN HCL 0.4 MG CAPSULE BY MOUTH (17:04)
[2020-12-04 17:44] LABS: Glucose Point of Care 140 mg/dl (65-105)
[2020-12-04 20:15] LABS: Glucose Point of Care 120 mg/dl (65-105)
[2020-12-04] MEDS: CEFEPIME 1 GM in DEXTROSE 5% IN WATER 50 ML IVPB (20:54)
[2020-12-04] MEDS: DONEPEZIL HCL 5 MG TABLET PO (20:55)
[2020-12-05] VITALS (14 sets, daily range): BP systolic 121–151; BP diastolic 55–67; PULSE 58–87; RESP 18–22; TEMP 36.2–36.8; O2SAT 98–100
[2020-12-05 05:29] LABS: Alanine Aminotransferase 23 U/L (4-50); Albumin Level 2.9 g/dL (3.5-5.1); Alkaline Phosphatase 71 U/L (38-126); Anion Gap 5 mmol/L (8-16); Aspartate Amino Transferase 29 U/L (17-59); Bilirubin,Total 0.3 mg/dL (0.2-1.3); Blood Urea Nitrogen 36 mg/dL (9-20); Calcium 8.6 mg/dL (8.4-10.2); Carbon Dioxide 31 mmol/L (22-30); Chloride 104 mmol/L (98-107); Estimated CRCL calculation 28 ml/min; Estimated Glomerular Filt Rate 24; Glucose 96 mg/dL (65-110); Potassium 3.6 mmol/L (3.4-5.0); Sodium 140 mmol/L (137-145)
[2020-12-05] MEDS: LEVOTHYROXINE SODIUM 100 MCG TABLET PO (06:08)
[2020-12-05] MEDS: PRAMIPEXOLE 1 MG TABLET BY MOUTH ×2 (08:16→17:00)
[2020-12-05] MEDS: DIVALPROEX SODIUM DR 250 MG TABEC PO ×2 (08:16→20:20)
[2020-12-05] MEDS: ACIDOPHILUS/BULGARICUS CHEWABLE TABLET 1 TABLET PO ×2 (08:16→16:59)
[2020-12-05] MEDS: QUEtiapine FUMARATE 25 MG TABLET 50 MG PO ×2 (08:16→20:19)
[2020-12-05] MEDS: CYANOCOBALAMIN 1,000 MCG TABLET 1000 MCG PO (08:17)
[2020-12-05] MEDS: FAMOTIDINE 20 MG TABLET PO ×2 (08:17→16:59)
[2020-12-05] MEDS: CHOLECALCIFEROL 1,000 UNITS TABLET 2000 UNITS PO (08:17)
[2020-12-05] MEDS: ENOXAPARIN 40 MG/0.4 ML SYRINGE SUB-Q (08:17)
[2020-12-05] MEDS: OMEGA 3 POLYUNSAT FATTY ACIDS 1 GM CAP PO (08:17)
[2020-12-05] MEDS: FERROUS SULFATE 324 MG TABLET PO ×2 (08:17→16:59)
[2020-12-05] MEDS: ATORVASTATIN 20 MG TABLET PO (08:17)
[2020-12-05] MEDS: INSULIN ASPART (*BKC) 100 UNITS/ML SUB-Q ×3 (08:19→17:01)
[2020-12-05 08:52] LABS: Glucose Point of Care 98 mg/dl (65-105)
[2020-12-05 09:54] LABS: Basophils Percent Auto 0.6 % (0.2-1.2); Eosinophils Percent Auto 0.8 % (0-4.4); Hematocrit 32.3 % (42.0-52.0); Hemoglobin 10.2 g/dL (14.0-18.0); Immature Granulocyte Absolute 0.01 K/mm3 (0.00-0.031); Immature Granulocyte Percent A 0.3 % (0-0.5); Lymphocytes Absolute Auto 1.23 K/mm3 (0.9-3.2); Lymphocytes Percent Auto 34.2 % (18.3-44.2); Mean Corpuscular HGB Conc 31.6 g/dl (32-36); Mean Corpuscular Hemoglobin 29.7 pg (26-34); Mean Corpuscular Volume 93.9 fl (80-100); Mean Platelet Volume 10.9 fl (7.4-10.4); Monocytes Absolute Auto 0.5 K/mm3 (0.1-0.6); Monocytes Percent Auto 12.8 % (2.6-8.5); Neutrophils Absolute Auto 1.9 K/mm3 (1.3-6.7); Neutrophils Percent Auto 51.3 % (45.5-73.1); Platelet Count Result 110 k/mm3 (150-375); Red Blood Count 3.44 M/mm3 (4.6-6.20); Red Cell Distribution Width 13.5 % (11.5-14.5); White Blood Count 3.6 K/mm3 (4.5-10.0)
[2020-12-05 10:07] LABS: Anion Gap 5 mmol/L (8-16); Blood Urea Nitrogen 36 mg/dL (9-20); Calcium 8.6 mg/dL (8.4-10.2); Carbon Dioxide 31 mmol/L (22-30); Chloride 104 mmol/L (98-107); Estimated CRCL calculation 31 ml/min; Estimated Glomerular Filt Rate 28; Glucose 101 mg/dL (65-110); Potassium 3.5 mmol/L (3.4-5.0); Sodium 140 mmol/L (137-145)
[2020-12-05 11:25] LABS: Iron 21 ug/dL (49-181)
[2020-12-05 11:35] LABS: Percent Iron Saturation 8 % (20-50)
[2020-12-05 13:26] LABS: Glucose Point of Care 157 mg/dl (65-105)
--- NOTE | 2020-12-05 16:12 | PCPTNOTE ---
On 12/05/20, the student, Diego PEACOCK, provided care and completed [facility] documentation on this patient. I have reviewed the student's documentation and agree with the findings.
--- NOTE | 2020-12-05 16:57 | PM.IMPN ---
Progress Note: A&P Assessment and Plan (1) Pneumonia: Code(s): J18.9 - Pneumonia, unspecified organism Status: Acute Assessment and Plan: Patient started on cefepime and vancomycin Follow up cultures Recent hospitalization in August of 2020 Has been swabbed for COVID-19; result pending. Supportive care (2) Fever: Code(s): R50.9 - Fever, unspecified Status: Acute Assessment and Plan: Patient has been afebrile for over the past 24 hours. Tylenol as needed Supportive care (3) Person under investigation for COVID-19: Code(s): Z20.822 - Contact with and (suspected) exposure to COVID-19 Status: Acute Assessment and Plan: Awaiting serology results (4) Chronic kidney disease (CKD): Code(s): N18.9 - Chronic kidney disease, unspecified Status: Acute Assessment and Plan: BUN and creatinine at patient's baseline Continue to monitor (5) Vascular dementia without behavioral disturbance: Code(s): F01.50 - Vascular dementia without behavioral disturbance Status: Acute Assessment and Plan: Patient is on quetiapine. Stable. continue to monitor. (6) Essential (primary) hypertension: Code(s): I10 - Essential (primary) hypertension Status: Acute Assessment and Plan: BP are within acceptable rnge. Continue home meds Continue to monitor (7) Nonrheumatic aortic (valve) stenosis: Code(s): I35.0 - Nonrheumatic aortic (valve) stenosis Status: Acute Assessment and Plan: Status post TAVR . (8) Type 2 diabetes mellitus without complications: Qualifiers: Diabetes mellitus mcc insulin use: without supervisor intermediates use Qualified Code(s): E11.9 - Type 2 diabetes mellitus without complications Code(s): E11.9 - Type 2 diabetes mellitus without complications Status: Acute Assessment and Plan: ACCU-CHEKS AC AND HS Holding saxagliptin (9) BPH (benign prostatic hyperplasia): Code(s): N40.0 - Benign prostatic hyperplasia without lower urinary tract symptoms Status: Acute Assessment and Plan: Continue tamsulocin Additional Plan Patient is DNR. Will continue current plan of care and treatment. COVID test pending. Subjective Date/time seen: 12/05/20 9:00AM Patient is examined at the bedside. He is not in distress. There is no complaint. Review of Systems Review of Systems: ROS unobtainable: Yes unobtainable due to mental status (Dementia) Exam Narrative: Laying in bed. Const: General: cooperative, comfortable, no acute distress, well developed, alert, awake and other (Well-appearing) Nutritional Appearance: average body habitus Orientation/consciousness: oriented to person and oriented to place HENMT: Head: normal to inspection, normocephalic and atraumatic Ears: hearing grossly normal bilaterally General nose exam: Normal external nose present Face and sinus: normal facial exam Eyes: General: appearance normal, both eyes and all related structures Alignment and Position: alignment normal Sclera: sclerae normal Pupils: Equal, round and reactive pupils present EOM: EOMs intact bilaterally Neck: Neck: normal visual inspection, full ROM, no lymphadenopathy, supple and no JVD Thyroid: thyroid normal Lymphatic: no lymphadenopathy noted Resp: Effort & Inspection: normal respiratory effort and able to speak in complete sentences Auscultation: clear to auscultation bilaterally, no crackles, no rales, no rhonchi and no wheezes Cardio: Jugular venous distension: no JVD Rate: regular rate Rhythm: regular rhythm Heart sounds: S1 normal heart sound present and S2 normal heart sound present : General: Yes deferred Skin: Rashes: no rashes Wounds: no wounds Neuro: General: oriented to person, oriented to place, no focal motor deficits, CN's II-XI intact bilaterally and Unable to assess gait Cranial nerves: Yes CN's II-XII intact bilaterally and Yes Equal, rou
[2020-12-05] MEDS: TAMSULOSIN HCL 0.4 MG CAPSULE BY MOUTH (17:00)
[2020-12-05 17:47] LABS: Glucose Point of Care 90 mg/dl (65-105)
[2020-12-05 19:01] LABS: SARS-CoV-2 RNA PCR Positive
[2020-12-05] MEDS: DONEPEZIL HCL 5 MG TABLET PO (20:19)
[2020-12-05] MEDS: CEFEPIME 1 GM in DEXTROSE 5% IN WATER 50 ML IVPB (20:19)
[2020-12-05 20:53] LABS: Glucose Point of Care 99 mg/dl (65-105)
[2020-12-06] VITALS (16 sets, daily range): BP systolic 105–141; BP diastolic 42–88; PULSE 61–82; RESP 16–20; TEMP 35.6–36.6; O2SAT 95–100
[2020-12-06 05:15] LABS: Hematocrit 33.5 % (42.0-52.0); Hemoglobin 10.6 g/dL (14.0-18.0); Mean Corpuscular HGB Conc 31.6 g/dl (32-36); Mean Corpuscular Hemoglobin 30.3 pg (26-34); Mean Corpuscular Volume 95.7 fl (80-100); Mean Platelet Volume 11.2 fl (7.4-10.4); Platelet Count Result 121 k/mm3 (150-375); Red Cell Distribution Width 13.3 % (11.5-14.5); White Blood Count 3.8 K/mm3 (4.5-10.0)
[2020-12-06 05:26] LABS: Potassium 3.6 mmol/L (3.4-5.0)
[2020-12-06 06:06] LABS: Anion Gap 4 mmol/L (8-16); Blood Urea Nitrogen 36 mg/dL (9-20); Calcium 8.6 mg/dL (8.4-10.2); Carbon Dioxide 32 mmol/L (22-30); Chloride 102 mmol/L (98-107); Estimated CRCL calculation 30 ml/min; Estimated Glomerular Filt Rate 27; Glucose 90 mg/dL (65-110); Sodium 138 mmol/L (137-145)
[2020-12-06] MEDS: LEVOTHYROXINE SODIUM 100 MCG TABLET PO (06:10)
[2020-12-06 08:02] LABS: Glucose Point of Care 83 mg/dl (65-105)
[2020-12-06] MEDS: FAMOTIDINE 20 MG TABLET PO ×2 (09:00→16:45)
[2020-12-06] MEDS: CYANOCOBALAMIN 1,000 MCG TABLET 1000 MCG PO (09:00)
[2020-12-06] MEDS: QUEtiapine FUMARATE 25 MG TABLET 50 MG PO ×2 (09:00→20:24)
[2020-12-06] MEDS: CHOLECALCIFEROL 1,000 UNITS TABLET 2000 UNITS PO (09:00)
[2020-12-06] MEDS: ACIDOPHILUS/BULGARICUS CHEWABLE TABLET 1 TABLET PO ×2 (09:01→16:44)
[2020-12-06] MEDS: PRAMIPEXOLE 1 MG TABLET BY MOUTH ×2 (09:02→16:45)
[2020-12-06] MEDS: OMEGA 3 POLYUNSAT FATTY ACIDS 1 GM CAP PO (09:02)
[2020-12-06] MEDS: ATORVASTATIN 20 MG TABLET PO (09:02)
[2020-12-06] MEDS: ENOXAPARIN 40 MG/0.4 ML SYRINGE SUB-Q (09:07)
[2020-12-06] MEDS: DIVALPROEX SODIUM DR 250 MG TABEC PO ×2 (10:30→20:24)
[2020-12-06] MEDS: FERROUS SULFATE 324 MG TABLET PO ×2 (10:30→16:44)
[2020-12-06] MEDS: INSULIN ASPART (*BKC) 100 UNITS/ML SUB-Q ×2 (12:22→16:46)
[2020-12-06 13:17] LABS: Glucose Point of Care 165 mg/dl (65-105)
--- NOTE | 2020-12-06 14:53 | PM.IMPN ---
Progress Note: A&P Assessment and Plan (1) Pneumonia: Code(s): J18.9 - Pneumonia, unspecified organism Status: Acute Assessment and Plan: Patient started on cefepime and vancomycin Follow up cultures. No growth to date. Stop vancomycin. Recent hospitalization in August of 2020 Has been swabbed positive for COVID-19; mild COVID 19 without any oxygenation needs. Follow up inflammatory markers. Pulmonary edema on chest Xray. LAsix 40 mg PO daily started. Supportive care (2) Fever: Code(s): R50.9 - Fever, unspecified Status: Acute Assessment and Plan: Patient has been afebrile for over the past 24 hours. Tylenol as needed Supportive care (3) Chronic kidney disease (CKD): Code(s): N18.9 - Chronic kidney disease, unspecified Status: Acute Assessment and Plan: Stage 4 CKD, likely related to diabetes melitus. BUN and creatinine at patient's baseline. ELectrolytes are within normal limits. Urinary output is adequate. Continue to monitor. Avoid nephrotoxic agents. (4) Vascular dementia without behavioral disturbance: Code(s): F01.50 - Vascular dementia without behavioral disturbance Status: Acute Assessment and Plan: Patient is on quetiapine. Stable. continue to monitor. (5) Essential (primary) hypertension: Code(s): I10 - Essential (primary) hypertension Status: Acute Assessment and Plan: BP are within acceptable range. Continue home medications. Continue to monitor (6) Nonrheumatic aortic (valve) stenosis: Code(s): I35.0 - Nonrheumatic aortic (valve) stenosis Status: Acute Assessment and Plan: Status post TAVR. Currently asymptomatic. . (7) Type 2 diabetes mellitus without complications: Qualifiers: Diabetes mellitus custodial insulin use: without custodial use Qualified Code(s): E11.9 - Type 2 diabetes mellitus without complications Code(s): E11.9 - Type 2 diabetes mellitus without complications Status: Acute Assessment and Plan: ACCU-CHEKS AC AND HS. Accuchecks are in the 83-165 range. Holding saxagliptin (8) BPH (benign prostatic hyperplasia): Code(s): N40.0 - Benign prostatic hyperplasia without lower urinary tract symptoms Status: Acute Assessment and Plan: No evidence eof urinary obstruction. Continue tamsulocin (9) COVID: Code(s): U07.1 - COVID-19 Status: Acute Assessment and Plan: We will manage with prevention for venous thromboembolism, metered dose inhalers. We will start daily dexamethasone . Patient is not hypoxic; there is no need for oxygenation or ventilatory support. . We will check inflammatory markers Additional Plan Patient is DNR. Will continue current plan of care and treatment. Subjective Date/time seen: 12/06/20 14:53 Patient is examined OOBC. He denies any complaints. Appetite is good nd sleep is adequate. Patient comfortable and saturating well on room air. COVID resulted +. Review of Systems Review of Systems: ROS unobtainable: Yes unobtainable due to mental status (Dementia) Exam Narrative: Patient is out of bed in chair. Const: General: cooperative, comfortable, no acute distress, well developed, alert, awake and other (Well-appearing) Nutritional Appearance: average body habitus Orientation/consciousness: oriented to person and oriented to place HENMT: Head: normal to inspection, normocephalic and atraumatic Ears: hearing grossly normal bilaterally General nose exam: Normal external nose present Face and sinus: normal facial exam Eyes: General: appearance normal, both eyes and all related structures Alignment and Position: alignment normal Sclera: sclerae normal Pupils: Equal, round and reactive pupils present EOM: EOMs intact bilaterally Neck: Neck: normal visual inspection, full ROM, no lymphadenopathy, supple and no JVD Thyroid: thyroid normal Lymphatic: no lymphadenopathy noted Resp: Effort & I
[2020-12-06 16:10] LABS: Glucose Point of Care 93 mg/dl (65-105)
[2020-12-06] MEDS: DEXAMETHASONE SOD PHOS INJ 4 MG/ML VIAL 6 MG IV PUSH (16:38)
[2020-12-06] MEDS: FUROSEMIDE 40 MG TABLET PO (16:43)
[2020-12-06] MEDS: TAMSULOSIN HCL 0.4 MG CAPSULE BY MOUTH (16:45)
[2020-12-06] MEDS: CEFEPIME 1 GM in DEXTROSE 5% IN WATER 50 ML IVPB (20:23)
[2020-12-06] MEDS: DONEPEZIL HCL 5 MG TABLET PO (20:24)
[2020-12-06 21:22] LABS: Glucose Point of Care 137 mg/dl (65-105)
[2020-12-07] VITALS (11 sets, daily range): BP systolic 127–157; BP diastolic 64–96; PULSE 50–122; RESP 16–20; TEMP 36–36.6; O2SAT 94–100
[2020-12-07] MEDS: LEVOTHYROXINE SODIUM 100 MCG TABLET PO (05:44)
[2020-12-07 05:52] LABS: Hematocrit 33.8 % (42.0-52.0); Hemoglobin 11.2 g/dL (14.0-18.0); Immature Platelet Fraction Pct 4.7 % (0.9-11.2); Mean Corpuscular HGB Conc 33.1 g/dl (32-36); Mean Corpuscular Hemoglobin 31.5 pg (26-34); Mean Corpuscular Volume 94.9 fl (80-100); Mean Platelet Volume 10.8 fl (7.4-10.4); Platelet Count Result 138 k/mm3 (150-375); Red Blood Count 3.56 M/mm3 (4.6-6.20); Red Cell Distribution Width 13.1 % (11.5-14.5); White Blood Count 3.4 K/mm3 (4.5-10.0)
[2020-12-07 06:08] LABS: Anion Gap 7 mmol/L (8-16); Blood Urea Nitrogen 37 mg/dL (9-20); CRP 4.5 mg/dL (<1.0); Calcium 9.1 mg/dL (8.4-10.2); Carbon Dioxide 31 mmol/L (22-30); Chloride 99 mmol/L (98-107); Estimated CRCL calculation 31 ml/min; Estimated Glomerular Filt Rate 28; Glucose 149 mg/dL (65-110); Lactate Dehydrogenase 503 U/L (313-618); Potassium 4.1 mmol/L (3.4-5.0); Sodium 137 mmol/L (137-145)
[2020-12-07] MEDS: CYANOCOBALAMIN 1,000 MCG TABLET 1000 MCG PO (08:10)
[2020-12-07] MEDS: ACIDOPHILUS/BULGARICUS CHEWABLE TABLET 1 TABLET PO ×2 (08:10→16:20)
[2020-12-07] MEDS: CHOLECALCIFEROL 1,000 UNITS TABLET 2000 UNITS PO (08:10)
[2020-12-07] MEDS: FERROUS SULFATE 324 MG TABLET PO ×2 (08:10→16:20)
[2020-12-07] MEDS: ATORVASTATIN 20 MG TABLET PO (08:10)
[2020-12-07] MEDS: ENOXAPARIN 40 MG/0.4 ML SYRINGE SUB-Q (08:11)
[2020-12-07] MEDS: FUROSEMIDE 40 MG TABLET PO (08:11)
[2020-12-07] MEDS: DIVALPROEX SODIUM DR 250 MG TABEC PO ×2 (08:11→22:20)
[2020-12-07] MEDS: FAMOTIDINE 20 MG TABLET PO ×2 (08:11→16:20)
[2020-12-07] MEDS: QUEtiapine FUMARATE 25 MG TABLET 50 MG PO ×2 (08:11→22:19)
[2020-12-07] MEDS: PRAMIPEXOLE 1 MG TABLET BY MOUTH ×2 (08:11→16:20)
[2020-12-07] MEDS: OMEGA 3 POLYUNSAT FATTY ACIDS 1 GM CAP PO (08:11)
[2020-12-07 09:25] LABS: Glucose Point of Care 172 mg/dl (65-105)
[2020-12-07 12:42] LABS: Glucose Point of Care 141 mg/dl (65-105)
--- NOTE | 2020-12-07 13:14 | PM.IMPN ---
Progress Note: A&P Assessment and Plan (1) Pneumonia: Code(s): J18.9 - Pneumonia, unspecified organism Status: Acute Assessment and Plan: Patient started on cefepime and vancomycin Follow up cultures. No growth to date. Stopped vancomycin. Recent hospitalization in August of 2020 Has been swabbed positive for COVID-19; mild COVID 19 without any oxygenation needs. CRP elevated at 4.5. Ferritin and LDH are within acceptable limits. Pulmonary edema on chest Xray. Continue lasix 40 mg PO daily started. Supportive care (2) Fever: Code(s): R50.9 - Fever, unspecified Status: Acute Assessment and Plan: Patient has been afebrile for over the past 48 hours. He has not required any tylenol as needed Supportive care (3) Chronic kidney disease (CKD): Code(s): N18.9 - Chronic kidney disease, unspecified Status: Acute Assessment and Plan: Stage 4 CKD, likely related to diabetes melitus. BUN and creatinine at patient's baseline. ELectrolytes are within normal limits. Urinary output is adequate. Continue to monitor. Avoid nephrotoxic agents. (4) Vascular dementia without behavioral disturbance: Code(s): F01.50 - Vascular dementia without behavioral disturbance Status: Acute Assessment and Plan: Patient is on quetiapine. Stable. continue to monitor. (5) Essential (primary) hypertension: Code(s): I10 - Essential (primary) hypertension Status: Acute Assessment and Plan: BP are within acceptable range. Continue home medications. Continue to monitor (6) Nonrheumatic aortic (valve) stenosis: Code(s): I35.0 - Nonrheumatic aortic (valve) stenosis Status: Acute Assessment and Plan: Status post TAVR. Currently asymptomatic. . (7) Type 2 diabetes mellitus without complications: Qualifiers: Diabetes mellitus predatory animal exterminator insulin use: without predatory animal exterminator use Qualified Code(s): E11.9 - Type 2 diabetes mellitus without complications Code(s): E11.9 - Type 2 diabetes mellitus without complications Status: Acute Assessment and Plan: ACCU-CHEKS AC AND HS. Accuchecks are in the 83-165 range. Holding saxagliptin (8) BPH (benign prostatic hyperplasia): Code(s): N40.0 - Benign prostatic hyperplasia without lower urinary tract symptoms Status: Acute Assessment and Plan: No evidence eof urinary obstruction. Continue tamsulocin (9) COVID: Code(s): U07.1 - COVID-19 Status: Acute Assessment and Plan: We will manage with prevention for venous thromboembolism, metered dose inhalers. We stopped dexamethasone. This is mild asymptomatic COVID. Additional Plan Patient is DNR. Will continue current plan of care and treatment. Subjective Date/time seen: 12/07/20 13:14 Patient is examined OOBC. He denies any complaints. Appetite is good nd sleep is adequate. Patient comfortable and saturating well on room air. COVID resulted +. There is no chest pain, shortness of bretah, nausea, vomiting or diarrhea. Review of Systems Review of Systems: ROS unobtainable: Yes unobtainable due to mental status (Dementia) Exam Narrative: Patient is out of bed in chair. Const: General: cooperative, comfortable, no acute distress, well developed, alert, awake and other (Well-appearing) Nutritional Appearance: average body habitus Orientation/consciousness: oriented to person and oriented to place HENMT: Head: normal to inspection, normocephalic and atraumatic Ears: hearing grossly normal bilaterally General nose exam: Normal external nose present Face and sinus: normal facial exam Eyes: General: appearance normal, both eyes and all related structures Alignment and Position: alignment normal Sclera: sclerae normal Pupils: Equal, round and reactive pupils present EOM: EOMs intact bilaterally Neck: Neck: normal visual inspection, full ROM, no lymphadenopathy, supple and no JVD Thyroid: thyroid normal Lym
[2020-12-07] MEDS: TAMSULOSIN HCL 0.4 MG CAPSULE BY MOUTH (16:20)
[2020-12-07 16:53] LABS: Glucose Point of Care 121 mg/dl (65-105)
--- NOTE | 2020-12-07 18:30 | PC.NURSE ---
This patient, Phong Red, was transferred to [[id number]] on 12/07/20 at 1830. Personal belongings sent with patient. Report given to [PAIGE LATHAM]. Appropriate documentation sent with patient.
--- NOTE | 2020-12-07 19:44 | PC.NURSE ---
This patient, Phong Red, was received from [facility] on 12/07/20 at 1830. Patient/family oriented to unit policies and routines
[2020-12-07] MEDS: DONEPEZIL HCL 5 MG TABLET PO (22:17)
[2020-12-07] MEDS: CEFEPIME 1 GM in DEXTROSE 5% IN WATER 50 ML IVPB (22:20)
[2020-12-08] VITALS: BP 159/67; PULSE 65; RESP 18; TEMP 37; O2SAT 96
[2020-12-08 04:00] VITALS: BP 159/69; PULSE 69; RESP 18; TEMP 36.1; O2SAT 99
[2020-12-08] MEDS: LEVOTHYROXINE SODIUM 100 MCG TABLET PO (05:33)
[2020-12-08 07:10] LABS: Hematocrit 34.8 % (42.0-52.0); Hemoglobin 11.2 g/dL (14.0-18.0); Mean Corpuscular HGB Conc 32.2 g/dl (32-36); Mean Corpuscular Hemoglobin 29.6 pg (26-34); Mean Corpuscular Volume 92.1 fl (80-100); Mean Platelet Volume 10.9 fl (7.4-10.4); Platelet Count Result 142 k/mm3 (150-375); Red Blood Count 3.78 M/mm3 (4.6-6.20); Red Cell Distribution Width 13.1 % (11.5-14.5); White Blood Count 3.9 K/mm3 (4.5-10.0)
[2020-12-08 07:31] LABS: Anion Gap 7 mmol/L (8-16); Blood Urea Nitrogen 40 mg/dL (9-20); Calcium 9.2 mg/dL (8.4-10.2); Carbon Dioxide 32 mmol/L (22-30); Chloride 100 mmol/L (98-107); Estimated CRCL calculation 34 ml/min; Estimated Glomerular Filt Rate 31; Glucose 94 mg/dL (65-110); Potassium 3.7 mmol/L (3.4-5.0); Sodium 139 mmol/L (137-145)
[2020-12-08 08:18] LABS: Glucose Point of Care 90 mg/dl (65-105)
[2020-12-08 08:57] VITALS: BP 139/66; PULSE 64; RESP 14; TEMP 36.5; O2SAT 92
[2020-12-08] MEDS: RANOLAZINE 500 MG TAB.ER.12H PO ×2 (10:38→20:20)
[2020-12-08] MEDS: QUEtiapine FUMARATE 25 MG TABLET 50 MG PO ×2 (10:39→20:19)
[2020-12-08] MEDS: ENOXAPARIN 40 MG/0.4 ML SYRINGE SUB-Q (10:39)
[2020-12-08] MEDS: CLOPIDOGREL BISULFATE 75 MG TABLET PO (10:39)
[2020-12-08] MEDS: ACIDOPHILUS/BULGARICUS CHEWABLE TABLET 1 TABLET PO ×2 (10:39→17:37)
[2020-12-08] MEDS: CHOLECALCIFEROL 1,000 UNITS TABLET 2000 UNITS PO (10:40)
[2020-12-08] MEDS: FUROSEMIDE 40 MG TABLET PO (10:41)
[2020-12-08] MEDS: PRAMIPEXOLE 1 MG TABLET BY MOUTH ×2 (10:41→17:36)
[2020-12-08] MEDS: CYANOCOBALAMIN 1,000 MCG TABLET 1000 MCG PO (10:41)
[2020-12-08] MEDS: OMEGA 3 POLYUNSAT FATTY ACIDS 1 GM CAP PO (10:41)
[2020-12-08] MEDS: ATORVASTATIN 20 MG TABLET PO (10:41)
[2020-12-08] MEDS: FERROUS SULFATE 324 MG TABLET PO ×2 (10:41→17:36)
[2020-12-08] MEDS: FAMOTIDINE 20 MG TABLET PO ×2 (10:41→17:37)
[2020-12-08] MEDS: DIVALPROEX SODIUM DR 250 MG TABEC PO ×2 (10:42→20:19)
[2020-12-08] MEDS: ASPIRIN 81 MG ENTERIC TABLET PO (10:42)
[2020-12-08 11:55] LABS: Glucose Point of Care 122 mg/dl (65-105)
--- NOTE | 2020-12-08 16:27 | PM.IMPN ---
Progress Note: A&P Assessment and Plan (1) Pneumonia: Code(s): J18.9 - Pneumonia, unspecified organism Status: Acute Assessment and Plan: Patient started on cefepime and vancomycin Follow up cultures. No growth to date. Stopped vancomycin. Recent hospitalization in August of 2020 Has been swabbed positive for COVID-19; mild COVID 19 without any oxygenation needs. CRP elevated at 4.5. Ferritin and LDH are within acceptable limits. Pulmonary edema on chest Xray. Continue lasix 40 mg PO daily started. Supportive care (2) Fever: Code(s): R50.9 - Fever, unspecified Status: Acute Assessment and Plan: Patient has been afebrile for over the past 48 hours. He has not required any tylenol as needed Supportive care (3) Chronic kidney disease (CKD): Code(s): N18.9 - Chronic kidney disease, unspecified Status: Acute Assessment and Plan: Stage 4 CKD, likely related to diabetes melitus. BUN and creatinine at patient's baseline. Electrolytes are within normal limits. Urinary output is adequate. Continue to monitor. Avoid nephrotoxic agents. (4) Vascular dementia without behavioral disturbance: Code(s): F01.50 - Vascular dementia without behavioral disturbance Status: Acute Assessment and Plan: Patient is on quetiapine. Stable. continue to monitor. (5) Essential (primary) hypertension: Code(s): I10 - Essential (primary) hypertension Status: Acute Assessment and Plan: BP are within acceptable range. Continue home medications. Continue to monitor (6) Nonrheumatic aortic (valve) stenosis: Code(s): I35.0 - Nonrheumatic aortic (valve) stenosis Status: Acute Assessment and Plan: Status post TAVR. Currently asymptomatic. . (7) Type 2 diabetes mellitus without complications: Qualifiers: Diabetes mellitus computer terminal operator insulin use: without computer terminal operator use Qualified Code(s): E11.9 - Type 2 diabetes mellitus without complications Code(s): E11.9 - Type 2 diabetes mellitus without complications Status: Acute Assessment and Plan: ACCU-CHEKS AC AND HS. Accuchecks are in the 83-165 range. Holding saxagliptin (8) BPH (benign prostatic hyperplasia): Code(s): N40.0 - Benign prostatic hyperplasia without lower urinary tract symptoms Status: Acute Assessment and Plan: No evidence eof urinary obstruction. Continue tamsulocin (9) COVID: Code(s): U07.1 - COVID-19 Status: Acute Assessment and Plan: We will manage with prevention for venous thromboembolism, metered dose inhalers. We stopped dexamethasone. This is mild asymptomatic COVID. He is breathing comfortably on room air. Additional Plan Patient is DNR. Will continue current plan of care and treatment. Subjective Date/time seen: 12/08/20 13:15 S: Patient is examined at the bedside. He denies any complaints. He looks comfortable. Review of Systems Review of Systems: ROS unobtainable: Yes unobtainable due to mental status (Dementia) Exam Narrative: Patient is out of bed in chair. Const: General: cooperative, comfortable, no acute distress, well developed, alert, awake and other (Well-appearing) Nutritional Appearance: average body habitus Orientation/consciousness: oriented to person and oriented to place HENMT: Head: normal to inspection, normocephalic and atraumatic Ears: hearing grossly normal bilaterally General nose exam: Normal external nose present Face and sinus: normal facial exam Eyes: General: appearance normal, both eyes and all related structures Alignment and Position: alignment normal Sclera: sclerae normal Pupils: Equal, round and reactive pupils present EOM: EOMs intact bilaterally Neck: Neck: normal visual inspection, full ROM, no lymphadenopathy, supple and no JVD Thyroid: thyroid normal Lymphatic: no lymphadenopathy noted Resp: Effort & Inspection: normal respiratory effort and able to speak
[2020-12-08 16:29] VITALS: BP 129/70; PULSE 69; RESP 12; TEMP 36.6; O2SAT 93
[2020-12-08 17:09] LABS: Glucose Point of Care 101 mg/dl (65-105)
[2020-12-08] MEDS: TAMSULOSIN HCL 0.4 MG CAPSULE BY MOUTH (17:36)
[2020-12-08] MEDS: DONEPEZIL HCL 5 MG TABLET PO (20:19)
[2020-12-08] MEDS: CEFEPIME 1 GM in DEXTROSE 5% IN WATER 50 ML IVPB (20:24)
[2020-12-08 21:34] LABS: Glucose Point of Care 165 mg/dl (65-105)
[2020-12-09] VITALS: BP 145/62; PULSE 88; RESP 16; TEMP 36.6; O2SAT 93
[2020-12-09 04:00] VITALS: BP 113/52; PULSE 75; RESP 18; TEMP 36.3; O2SAT 98
[2020-12-09] MEDS: LEVOTHYROXINE SODIUM 100 MCG TABLET PO (05:46)
[2020-12-09 06:27] LABS: Hematocrit 32.4 % (42.0-52.0); Hemoglobin 10.6 g/dL (14.0-18.0); Mean Corpuscular HGB Conc 32.7 g/dl (32-36); Mean Corpuscular Hemoglobin 30.5 pg (26-34); Mean Corpuscular Volume 93.4 fl (80-100); Mean Platelet Volume 10.4 fl (7.4-10.4); Platelet Count Result 121 k/mm3 (150-375); Red Blood Count 3.47 M/mm3 (4.6-6.20); Red Cell Distribution Width 13.2 % (11.5-14.5); White Blood Count 2.6 K/mm3 (4.5-10.0)
[2020-12-09 06:54] LABS: Anion Gap 5 mmol/L (8-16); Blood Urea Nitrogen 40 mg/dL (9-20); Calcium 8.9 mg/dL (8.4-10.2); Carbon Dioxide 29 mmol/L (22-30); Chloride 104 mmol/L (98-107); Estimated CRCL calculation 33 ml/min; Estimated Glomerular Filt Rate 29; Glucose 104 mg/dL (65-110); Potassium 3.9 mmol/L (3.4-5.0); Sodium 138 mmol/L (137-145)
[2020-12-09 08:11] LABS: Glucose Point of Care 96 mg/dl (65-105)
[2020-12-09 08:34] VITALS: BP 130/60; PULSE 76; RESP 12; TEMP 36.9; O2SAT 99
[2020-12-09] MEDS: RANOLAZINE 500 MG TAB.ER.12H PO (09:30)
[2020-12-09] MEDS: ACIDOPHILUS/BULGARICUS CHEWABLE TABLET 1 TABLET PO (09:30)
[2020-12-09] MEDS: DIVALPROEX SODIUM DR 250 MG TABEC PO (09:30)
[2020-12-09] MEDS: CYANOCOBALAMIN 1,000 MCG TABLET 1000 MCG PO (09:30)
[2020-12-09] MEDS: ATORVASTATIN 20 MG TABLET PO (09:30)
[2020-12-09] MEDS: FUROSEMIDE 40 MG TABLET PO (09:30)
[2020-12-09] MEDS: FERROUS SULFATE 324 MG TABLET PO (09:30)
[2020-12-09] MEDS: CHOLECALCIFEROL 1,000 UNITS TABLET 2000 UNITS PO (09:30)
[2020-12-09] MEDS: ENOXAPARIN 40 MG/0.4 ML SYRINGE SUB-Q (09:30)
[2020-12-09] MEDS: QUEtiapine FUMARATE 25 MG TABLET 50 MG PO (09:30)
[2020-12-09] MEDS: ASPIRIN 81 MG ENTERIC TABLET PO (09:31)
[2020-12-09] MEDS: PRAMIPEXOLE 1 MG TABLET BY MOUTH (09:31)
[2020-12-09] MEDS: FAMOTIDINE 20 MG TABLET PO (09:31)
[2020-12-09] MEDS: CLOPIDOGREL BISULFATE 75 MG TABLET PO (09:31)
[2020-12-09] MEDS: OMEGA 3 POLYUNSAT FATTY ACIDS 1 GM CAP PO (09:31)
[2020-12-09 12:15] LABS: Glucose Point of Care 91 mg/dl (65-105)
[2020-12-09 12:56] VITALS: BP 127/72; PULSE 84; RESP 12; TEMP 37; O2SAT 100
--- NOTE | 2020-12-09 17:37 | PM.DS ---
DS: Admitting Diagnosis Discharge Date 12/09/20 Admitting Diagnosis Tremor COVID19 pneumonia DS: Discharge Diagnosis Discharge Diagnosis (1) COVID: Code(s): U07.1 - COVID-19 Status: Acute Assessment and Plan: We will manage with prevention for venous thromboembolism, metered dose inhalers. We stopped dexamethasone. This is mild asymptomatic COVID. He is breathing comfortably on room air. (2) Myoclonic jerking: Code(s): G25.3 - Myoclonus Status: Acute (3) Fever: Code(s): R50.9 - Fever, unspecified Status: Acute Assessment and Plan: Patient has been afebrile for over the past 48 hours. He has not required any tylenol as needed Supportive care DS: Summary Hospital Course Reason for hospitalization: Tremor Hospital Course: This is a 75-year-old gentleman with past medical history significant for Alzheimer's dementia, intracerebral bleed after fall, chronic kidney disease, hypertension, severe aortic stenosis status post TAVR recent hospitalization for fall and intracranial bleed. Patient was noticed on the dayof admission to have tremors worse than usual and was brought to the emergency room for further assessment and evaluation. Preliminary workup was significant for chest x-ray with infiltrates. COVID was positive. Patient is unable to give any history he knows that he is at [facility] however does not note the time of day or why he is there. BMP shows a creatinine of 2.4, brain natriuretic peptide of 1870 a troponin of 0.0386 patient also had a rectal temperature of 101.4. Decision has been made to admit the patient for further assessment and evaluation. Patient remained stable afebrile and never required any oxygen supplementation. We have managed with prevention for venous thromboembolism, metered dose inhalers. We stopped dexamethasone after 1 single dose given the patient's stable respiratory status. This is mild asymptomatic COVID. He was breathing comfortably on room air. Patient had sessions with PT/OT and will receive PT/OT as an outpatient at the assisted living facility. Status at Discharge Functional status at discharge: uses cane/walker Overall status at discharge: patient is back to baseline Time Spent with Patient Time attestation: Total time spent providing and/or coordinating discharge services: Exam Narrative: Patient is out of bed in chair. Const: General: cooperative, comfortable, no acute distress, well developed, alert, awake and other (Well-appearing) Nutritional Appearance: average body habitus Orientation/consciousness: oriented to person and oriented to place HENMT: Head: normal to inspection, normocephalic and atraumatic Ears: hearing grossly normal bilaterally General nose exam: Normal external nose present Face and sinus: normal facial exam Eyes: General: appearance normal, both eyes and all related structures Alignment and Position: alignment normal Sclera: sclerae normal Pupils: Equal, round and reactive pupils present EOM: EOMs intact bilaterally Neck: Neck: normal visual inspection, full ROM, no lymphadenopathy, supple and no JVD Thyroid: thyroid normal Lymphatic: no lymphadenopathy noted Resp: Effort & Inspection: normal respiratory effort and able to speak in complete sentences Auscultation: clear to auscultation bilaterally, no crackles, no rales, no rhonchi and no wheezes Cardio: Jugular venous distension: no JVD Rate: regular rate Rhythm: regular rhythm Heart sounds: S1 normal heart sound present and S2 normal heart sound present : General: Yes deferred Skin: Rashes: no rashes Wounds: no wounds Neuro: General: oriented to person, oriented to place, no focal motor deficits, CN's II-XI intact bilaterally and Unable to assess gait Cranial nerves: Yes CN's II-XII intact bilaterally and Yes Equal, round and reactive pupils present Cognition (Neuro): normal cognition Speech: normal speech Gait exam (Neuro): Unable to assess g
== END 2020-12-09 13:20 | DRG 177 ==
LOC: ANHED 12-04 00:51 → ANHIMU 12-04 00:58 → ANH3MEDSUR 12-08 11:14 → ANHIMU 12-14 14:21
PROVIDERS: Admitting Provider Internal Medicine; Emergency Provider General Practice; PCP Internal Medicine; Visit Provider Internal Medicine
DX: U07.1 COVID-19 (principal); J12.82 Pneumonia due to coronavirus disease 2019; N18.4 Chronic kidney disease, stage 4 (severe); G25.3 Myoclonus; G30.9 Alzheimer's disease, unspecified; F02.80 Dementia in other diseases classified elsewhere, unspecified severity, without behavioral disturbance, psychotic disturbance, mood disturbance, and anxiety; I12.9 Hypertensive chronic kidney disease with stage 1 through stage 4 chronic kidney disease, or unspecified chronic kidney disease; E11.22 Type 2 diabetes mellitus with diabetic chronic kidney disease; D64.9 Anemia, unspecified; K21.9 Gastro-esophageal reflux disease without esophagitis; E78.5 Hyperlipidemia, unspecified; E05.90 Thyrotoxicosis, unspecified without thyrotoxic crisis or storm; N40.0 Benign prostatic hyperplasia without lower urinary tract symptoms; H54.8 Legal blindness, as defined in USA; I35.0 Nonrheumatic aortic (valve) stenosis; Z96.641 Presence of right artificial hip joint; Z66 Do not resuscitate; I25.2 Old myocardial infarction; Z79.82 Long term (current) use of aspirin; Z95.5 Presence of coronary angioplasty implant and graft
CPT/HCPCS: 36415; 71045; 80048; 80053; 81001; 82728; 82948; 83540; 83550; 83605; 83615; 83880; 84484; 85025; 85027; 85055; 86140; 87040; 93005; 96365; 96366; 96367; 96372; 96375; 96376; 97110; 97161; 97165; 97530; 99285; A9270; C9803; G0378; J0131; J0456; J0692; J1100; J1650; J1815; J1940; J3370; J7060; U0003; U0005

== ENCOUNTER 2021-02-12 08:57 | Observation (INO) | payer MEDICARE, SELFPAY ==
--- NOTE | ~2021-02-12 | CT_ITS ---
EXAMINATION: CT abdomen pelvis wo con DATE: 02/12/2021 11:00 INDICATION: Diarrhea and hematochezia TECHNIQUE: Computed tomography (CT) of the abdomen and pelvis was performed without intravenous contr ast. The dose-length product (DLP) was 799.90 mGy-cm. Automated exposure control and iterative recons truction technique were employed. COMPARISON: 12/11/2018 FINDINGS: Minimal dependent atelectasis is present in the lung bases. The heart size is normal. There are changes of endoluminal aortic valve replacement. Punctate calcifications in an otherwise normal spleen likely represent healed granulomatous disease. The liver, pancreas, and adrenal glands are nor mal. A stone is present in the nondistended gallbladder. There is an 8 cm cyst of the left kidney. A 3 mm nonobstructing stone is present in the lower pole of the right kidney. There is calcified athero sclerosis of the aorta and many of the other arteries. There is mild inguinal lymphadenopathy. There is wall thickening of the sigmoid colon and rectum. A large volume of colonic stool is present. Ther e are changes of right hip arthroplasty. There is lumbar levoscoliosis with moderate spondylosis. IMPRESSION: 1. Wall thickening of the sigmoid colon and rectum, likely colitis. 2. Mild inguinal lymphadenopathy, likely reactive. 3. Constipation. Reviewed, dictated and finalized at location A. [employer]
[2021-02-12 08:58] VITALS: BP 122/69; PULSE 71; RESP 14; TEMP 36.4; O2SAT 100
[2021-02-12 10:03] LABS: Alanine Aminotransferase 16 U/L (4-50); Albumin Level 2.7 g/dL (3.5-5.1); Alkaline Phosphatase 73 U/L (38-126); Anion Gap -1 mmol/L (8-16); Aspartate Amino Transferase 22 U/L (17-59); Bilirubin,Total 0.3 mg/dL (0.2-1.3); Blood Urea Nitrogen 38 mg/dL (9-20); Calcium 9.2 mg/dL (8.4-10.2); Carbon Dioxide 33 mmol/L (22-30); Chloride 107 mmol/L (98-107); Estimated CRCL calculation 30 ml/min; Estimated Glomerular Filt Rate 27; Glucose 154 mg/dL (65-110); Potassium 3.8 mmol/L (3.4-5.0); Sodium 139 mmol/L (137-145)
[2021-02-12 10:04] LABS: INR 1.1; Prothrombin Time 14.4 Seconds (11.1-14.7)
[2021-02-12 10:05] LABS: Basophils Absolute Auto 0.1 K/mm3 (0.0-0.1); Basophils Percent Auto 0.9 % (0.2-1.2); Eosinophils Absolute Auto 0.1 K/mm3 (0-0.3); Eosinophils Percent Auto 1.6 % (0-4.4); Hematocrit 29.5 % (42.0-52.0); Hemoglobin 9.4 g/dL (14.0-18.0); Immature Granulocyte Absolute 0.01 K/mm3 (0.00-0.031); Immature Granulocyte Percent A 0.2 % (0-0.5); Lymphocytes Absolute Auto 1.24 K/mm3 (0.9-3.2); Mean Corpuscular HGB Conc 31.9 g/dl (32-36); Mean Corpuscular Hemoglobin 30.9 pg (26-34); Mean Platelet Volume 10.7 fl (7.4-10.4); Monocytes Absolute Auto 0.6 K/mm3 (0.1-0.6); Monocytes Percent Auto 10.8 % (2.6-8.5); Neutrophils Absolute Auto 3.6 K/mm3 (1.3-6.7); Neutrophils Percent Auto 64.5 % (45.5-73.1); Partial Thromboplastin Time 29.7 SECONDS (22.3-36.8); Platelet Count Result 148 k/mm3 (150-375); Red Blood Count 3.04 M/mm3 (4.6-6.20); Red Cell Distribution Width 14.2 % (11.5-14.5); White Blood Count 5.6 K/mm3 (4.5-10.0)
--- NOTE | 2021-02-12 10:39 | ED.GIBLEED ---
HPI - GI Bleed General Chief complaint: GI Bleed Stated complaint: RECTAL BLEED Time Seen by Provider: 02/12/21 10:15 Source: patient Mode of arrival: EMS Limitations: dementia History of Present Illness HPI Narrative: This is a 75-year-old male that presents to the emergency department for GI bleed. Reports he has been having diarrhea today and they noted blood in his depends at nursing facility. Patient does not report any history of previous GI bleeds. He takes clopidogrel daily. Denies fever, abdominal pain, or vomiting. Related Data Home Medications Medication Instructions Recorded Confirmed aspirin [Aspir-81] 81 mg PO DAILY 02/28/19 12/04/20 cinnamon bark [Cinnamon] 500 mg PO DAILY 02/28/19 12/04/20 cyanocobalamin (vitamin B-12) 1,000 mcg PO DAILY 02/28/19 12/04/20 [Vitamin B-12] ferrous sulfate [Feosol] 325 mg PO BID 02/28/19 12/04/20 fish ure-eexiz-1-vit C-vit E 1,000 mg PO DAILY 02/28/19 12/04/20 nitroglycerin [Nitrostat] 0.4 mg SUBLINGUAL Q5-15M PRN 02/28/19 12/04/20 ranolazine 500 mg PO Q12H 02/28/19 12/04/20 atorvastatin 20 mg tablet 20 mg PO DAILY 05/08/19 12/04/20 acetaminophen 650 mg PO Q6H PRN 07/05/20 12/04/20 cholecalciferol (vitamin D3) 50 mcg PO DAILY 07/05/20 12/04/20 quetiapine 50 mg PO BID 07/05/20 12/04/20 Acidophilus-Pectin 1 tablet PO BID 12/04/20 12/04/20 divalproex [Depakote] 250 mg PO Q12HR 12/04/20 12/04/20 donepezil 5 mg PO HS 12/04/20 12/04/20 ferrous sulfate 325 mg PO BID 12/04/20 12/04/20 Allergies Allergy/AdvReac Type Severity Reaction Status Date / Time No Known Allergies Allergy Verified 12/03/20 18:18 Review of Systems Review of Systems: CONSTITUTIONAL: Denies fever GASTROINTESTINAL: Reports diarrhea. Denies abdominal pain, nausea, vomiting All systems reviewed & are unremarkable except as noted in HPI and below PMFSH Past Medical History Medical History Anemia Was getting iron infusions Angina of effort Arm fracture Congenital hip deformity Right hip dislocation, congenital GERD (gastroesophageal reflux disease) H/O non-insulin dependent diabetes mellitus HLD (hyperlipidemia) HTN (hypertension) Hyperthyroidism Legally blind in left eye, as defined in [place] Myocardial infarction Surgical History Surgical History History of right hip replacement Hx of cardiac cath Hx of tonsillectomy Stented coronary artery Family History Family History Father Acute myocardial infarction, Onset Age: 59 Family history of cardiovascular disease Grandparent Family history of cardiovascular disease Family history of malignant neoplasm Family history of malignant neoplasm of bone Social History Social History Smoking status: Never smoker Second hand tobacco smoke exposure: Yes ( smoked) Alcohol intake: never Substance use: never Spiritual care concerns: No Exam Narrative: GENERAL: Well-appearing, well-nourished, and in no acute distress. HEAD: Normocephalic, atraumatic. EYES: EOMI. ENT: Mucous membranes moist. CHEST: Clear to auscultation. No respiratory distress. No wheezes rales or rhonchi HEART: Regular rate and rhythm. No murmur heard. Normal peripheral pulses. ABDOMEN: Soft, nontender, nondistended, normal active bowel sounds. EXTREMITIES: Normal range of motion. Bilateral 1+ pitting edema to the lower extremities SKIN: Warm, dry, no rash. NEURO: No focal deficits. Alert and oriented x3. PSYCH: Normal mood and affect Course Consultations Consultation #1: Spoke with Dr. Valdes about patient and work-up who will consult. Date: 02/12/21 Time: 12:00 Consultation #2: Spoke with hospitalist about patient and work-up who accepts admission Date: 02/12/21 Time: 12:05 Vital Signs Vital signs: Vital Signs Temperature 9
[2021-02-12 11:35] VITALS: BP 107/57; BP 110/76; BP 116/70; PULSE 70; PULSE 76
[2021-02-12 14:46] VITALS: BMI 26.9
[2021-02-12 14:50] VITALS: BP 133/101; PULSE 72; RESP 16; TEMP 35.8; O2SAT 100
--- NOTE | 2021-02-12 15:00 | PM.IMHP ---
H&P: HPI History of Present Illness Date/Time: 02/12/21 15:00 Chief Complaint: Blood in stool. Narrative: This is a 75-year-old male with dementia, iron deficiency anemia, coronary artery disease, aortic stenosis status post TAVR, GERD, diabetes, and hypothyroidism who presented to the emergency department earlier today for evaluation after he was found to have bright red blood in his depends by staff at [facility] where he is a resident. The patient is a fair historian but due to his dementia he is forgetful and thus some of the following history is supplemented via a review of his electronic medical records as well as discussions with his daughter Nettie at bedside, with the patient's permission. Mr. Red indicates to me that he has alternating issues with constipation and diarrhea and it seems as though he needs medication ordered to have a bowel movement however he feels that he gets ?overmedicated? and then he begins to have diarrhea. Yesterday at lunch he had a sudden urge to have a bowel movement but he did not make it to the bathroom and was incontinent of a loose stool mixed with bright red blood. He had a similar episode today which prompted him to be brought to the ER. CT of the abdomen and pelvis showed wall thickening of the sigmoid colon and rectum, likely colitis, and constipation. He is being admitted in this setting. At the time my evaluation he has no complaints but does endorse mild ache in the lower abdomen and rectal area when prompted. He does not believe that he suffers from hemorrhoids however colonoscopy several years ago did reveal internal hemorrhoids. Appetite has been good and he is asking for food at this time. He denies fever, chills, and sweats. He has not had nausea or vomiting. Review of Systems Review of Systems: Twelve systems were reviewed. No fever, chills, or sweats. He has a benign tremor that has been present for years. No history of Parkinson's. He has been in the memory care center at [place] for some time due to his dementia. He ambulates with a cane or a walker ?because they yell at me if I do not.? He denies recent falls. No chest pain or shortness of breath. No cold or flu symptoms. No sick contacts. No hematuria. Except as documented, all other systems were reviewed and are negative. [facility] Past Medical History Medical History (Updated 02/12/21 @ 20:24 by Queenie Cagle PA-C) Chronic anemia History of iron deficiency requiring transfusions. Chronic kidney disease, stage 4 (severe) Baseline creatinine is around 2.40. Coronary artery disease COVID-19 (11/2020) Degenerative arthritis Gastroesophageal reflux disease Hyperlipidemia Hypertension Hypothyroidism Non-insulin dependent type 2 diabetes mellitus Severe aortic stenosis Status post TAVR. Vascular dementia without behavioral disturbance Surgical History Surgical History History of cardiac catheterization (08/2013) Revealed severe multivessel coronary artery disease. History of colonoscopy with polypectomy (03/2018) Revealed internal hemorrhoids and colon polyps. History of esophagogastroduodenoscopy (04/2018) Revealed gastric erosions. History of right hip replacement (07/1999) History of tonsillectomy History of transcatheter aortic valve replacement (TAVR) Stented coronary artery Family History Family History Father Acute myocardial infarction, Onset Age: 59 Family history of cardiovascular disease Grandparent Family history of cardiovascular disease Family history of malignant neoplasm Family history of malignant neoplasm of bone Social History Social History (Updated 02/12/21 @ 20:18 by Queenie Cagle PA-C) Social History: Surrogate decision maker: Nettie Red, daughter. Code status: Do not resuscitate. Smoking status: Never smoker Second hand tobacco smoke exposure:
--- NOTE | 2021-02-12 15:04 | ADMGEN ---
This patient, Phong Red, was admitted to Medical Room 249-01. Patient/family oriented to hospital policies and general routines including ID bracelet, bed and alarms, visiting hours, pain management, procedures, bathroom and other care routines, personal items, smoking policy, room service/diet, and visiting hours. Information on how to activate the Rapid Response Team has been discussed. Patient/Family are encouraged to report perceived risks to care and to ask questions if they do not understand what they are told or what they should do.
[2021-02-12 15:30] VITALS: O2SAT 98
[2021-02-12 15:43] LABS: Hematocrit 32.6 % (42.0-52.0); Hemoglobin 9.9 g/dL (14.0-18.0)
[2021-02-12 16:00] VITALS: PULSE 78
[2021-02-12 17:17] LABS: Glucose Point of Care 98 mg/dl (65-105)
[2021-02-12 18:32] LABS: Hematocrit 31.1 % (42.0-52.0)
[2021-02-12 19:15] VITALS: BP 128/69; PULSE 72; RESP 16; TEMP 36.8; O2SAT 100
[2021-02-12 21:03] LABS: Lactic Acid Reflex 1.1 mmol/L (0.7-2.1)
[2021-02-12 21:10] LABS: Prealbumin 23.7 mg/dL (17.6-36.0)
[2021-02-12] MEDS: FAMOTIDINE 20 MG TABLET PO (21:10)
[2021-02-12] MEDS: PRAMIPEXOLE 1 MG TABLET BY MOUTH (21:11)
[2021-02-12] MEDS: TAMSULOSIN HCL 0.4 MG CAPSULE BY MOUTH (21:11)
[2021-02-12] MEDS: RANOLAZINE 500 MG TAB.ER.12H PO (21:11)
[2021-02-12] MEDS: QUEtiapine FUMARATE 25 MG TABLET 50 MG PO ×2 (21:11→23:35)
[2021-02-12] MEDS: DIVALPROEX SODIUM DR 250 MG TABEC PO (21:11)
[2021-02-12] MEDS: DONEPEZIL HCL 5 MG TABLET PO (21:11)
[2021-02-12 21:23] LABS: Glucose Point of Care 168 mg/dl (65-105)
[2021-02-12 21:57] LABS: Add Urine Microscopic? YES; Appearance Urine Clear (Clear); Bilirubin Urine Negative (Negative); Color Urine Yellow (Yellow); Glucose Urine UA Negative (Negative); Ketones Urine Negative (Negative); Leukocyte Esterase Ur Negative LEU/UL (Negative); Mucus Urine Rare /lpf; Nitrate Urine Negative (Negative); Protein Urine Negative (Negative); RBC Urine 0-2 /hpf (0-2); Specific Grav Ur 1.013 (1.001-1.035); Squamous Epithelial Cell Urine Rare /hpf (Few); Urobilinogen Urine Negative mg/dL (<2.0)
[2021-02-12 22:03] LABS: Blood Urine Negative (Negative); Total Protein Urine Random 26 mg/dL
[2021-02-12 22:20] LABS: Creatinine Urine 80.1 mg/dL
[2021-02-12 22:25] LABS: MALB Creatinine Ratio 28.3 mg/g (0-30); Microalbumin Urine Random 22.7 mg/L (0-16.7)
[2021-02-12 23:19] LABS: Valproic Acid > 10.0 ug/mL (50-120)
[2021-02-13 01:05] LABS: Hematocrit 28.3 % (42.0-52.0); Hemoglobin 9.2 g/dL (14.0-18.0)
[2021-02-13 04:14] VITALS: BP 139/69; PULSE 69; RESP 17; TEMP 36.1; O2SAT 100
[2021-02-13 06:04] LABS: Hematocrit 27.8 % (42.0-52.0); Mean Corpuscular HGB Conc 32.4 g/dl (32-36); Mean Corpuscular Hemoglobin 30.9 pg (26-34); Mean Corpuscular Volume 95.5 fl (80-100); Mean Platelet Volume 10.5 fl (7.4-10.4); Platelet Count Result 151 k/mm3 (150-375); Red Blood Count 2.91 M/mm3 (4.6-6.20); Red Cell Distribution Width 13.8 % (11.5-14.5)
[2021-02-13 06:23] LABS: Anion Gap 2 mmol/L (8-16); Blood Urea Nitrogen 32 mg/dL (9-20); Calcium 8.7 mg/dL (8.4-10.2); Carbon Dioxide 29 mmol/L (22-30); Chloride 106 mmol/L (98-107); Estimated CRCL calculation 31 ml/min; Estimated Glomerular Filt Rate 29; Glucose 94 mg/dL (65-110); Magnesium 2.1 mg/dL (1.6-2.3); Potassium 3.5 mmol/L (3.4-5.0); Sodium 137 mmol/L (137-145)
[2021-02-13] MEDS: LEVOTHYROXINE SODIUM 100 MCG TABLET PO (07:25)
[2021-02-13 07:42] LABS: Glucose Point of Care 87 mg/dl (65-105)
--- NOTE | 2021-02-13 08:00 | ECG_ITS ---
Measurements Intervals [place] Rate: 62 P: 100 WI: 209 QRS: -37 QRSD: 151 T: 110 QT: 478 QTc: 487 Interpretive Statements SINUS RHYTHM WITH FIRST DEGREE AV BLOCK VENTRICULAR PREMATURE COMPLEXES MARKED LEFT AXIS DEVIATION INTRAVENTRICULAR CONDUCTION DELAY LEFT VENTRICULAR HYPERTROPHY WITH ST-T CHANGE BORDERLINE R WAVE PROGRESSION, ANTERIOR LEADS MINIMAL Q WAVES- HIGH LATERAL LEADS BASELINE ARTIFACT- I, II, AVR, V1 ABNORMAL ECG Electronically Signed On 02-13-2021 9:11:51 HAND SUTURE W[employer]ER by Jakob Doherty D.O.
[2021-02-13] MEDS: ATORVASTATIN 20 MG TABLET PO (09:04)
[2021-02-13] MEDS: QUEtiapine FUMARATE 25 MG TABLET 50 MG PO ×2 (09:04→20:59)
[2021-02-13] MEDS: FERROUS SULFATE 324 MG TABLET PO ×2 (09:04→17:01)
[2021-02-13] MEDS: CHOLECALCIFEROL 1,000 UNITS TABLET 2000 UNITS PO (09:04)
[2021-02-13] MEDS: RANOLAZINE 500 MG TAB.ER.12H PO ×2 (09:04→20:58)
[2021-02-13] MEDS: ACIDOPHILUS/BULGARICUS CHEWABLE TABLET 1 TABLET PO ×2 (09:04→17:01)
[2021-02-13] MEDS: DIVALPROEX SODIUM DR 250 MG TABEC PO ×2 (09:04→20:58)
[2021-02-13] MEDS: FAMOTIDINE 20 MG TABLET PO ×2 (09:05→20:58)
[2021-02-13] MEDS: CYANOCOBALAMIN 1,000 MCG TABLET 1000 MCG PO (09:05)
[2021-02-13] MEDS: FUROSEMIDE 40 MG TABLET PO (09:05)
[2021-02-13] MEDS: PRAMIPEXOLE 1 MG TABLET BY MOUTH ×2 (09:05→20:58)
--- NOTE | 2021-02-13 11:18 | PCCCNOTE ---
On 02/13/21, the student, [Whit Dc ], provided care and completed [facility] on this patient. I have reviewed the student's documentation and agree with the findings.
[2021-02-13 11:23] LABS: Glucose Point of Care 112 mg/dl (65-105)
[2021-02-13 12:14] LABS: IFOB Positive Control Positive; Immunochemical Fecal Occult Bl Positive (N)
--- NOTE | 2021-02-13 12:53 | PM.IMPN ---
Progress Note: A&P Assessment and Plan (1) Colitis: Code(s): K52.9 - Noninfective gastroenteritis and colitis, unspecified Status: Acute Assessment and Plan: CT of the abdomen and pelvis shows wall thickening of the sigmoid colon and rectum, likely colitis. His white blood cell count is normal and he is afebrile, perhaps this is stercoral colitis related to his constipation however that was not called on radiologist's read. Ischemic colitis less likely and lactic acid is within normal limits. Continue IV Zosyn. Stool cultures pending. He has had two bowel movements today. (2) Rectal bleeding: Code(s): K62.5 - Hemorrhage of anus and rectum Status: Acute Assessment and Plan: Likely related to colitis and/or bleeding from internal hemorrhoids. Hemoglobin and hematocrit stable. Will recheck this evening to ensure and is not declining. Appreciate gastroenterology consultation. (3) Chronic anemia: Code(s): D64.9 - Anemia, unspecified Status: Acute Assessment and Plan: Hemoglobin and hematocrit are stable and will be monitored due to bright red blood per rectum. See above. (4) Hypoalbuminemia: Code(s): E88.09 - Other disorders of plasma-protein metabolism, not elsewhere classified Status: Acute Assessment and Plan: Albumin is 2.7 and his total protein is also low at 5.0. Noted that weight loss have been previously documented and therefore this may be related to malnutrition. No evidence of protein loss on UA. Will add dietary supplements. Recheck protein and albumin levels tomorrow. (5) Chronic kidney disease, stage 4 (severe): Code(s): N18.4 - Chronic kidney disease, stage 4 (severe) Status: Acute Assessment and Plan: Creatinine is stable on review of previous labs. (6) Non-insulin dependent type 2 diabetes mellitus: Code(s): E11.9 - Type 2 diabetes mellitus without complications Status: Acute Assessment and Plan: A1c is 6.3. Continue Accu-Cheks, sliding scale insulin, hypoglycemic protocol. Saxagliptin on hold as it is nonformulary. (7) Vascular dementia without behavioral disturbance: Code(s): F01.50 - Vascular dementia without behavioral disturbance Status: Acute Assessment and Plan: Continue donepezil. Initiate fall precautions. (8) Coronary artery disease: Qualifiers: Coronary Disease-Associated Artery/Lesion type: [place] artery [place] vs. transplanted heart: [place] heart Associated angina: without angina Qualified Code(s): I25.10 - Atherosclerotic heart disease of [place] coronary artery without angina pectoris Code(s): I25.10 - Atherosclerotic heart disease of [place] coronary artery without angina pectoris Status: Acute Assessment and Plan: No acute issues. Aspirin and clopidogrel on hold given rectal bleeding. (9) Hypothyroidism: Code(s): E03.9 - Hypothyroidism, unspecified Status: Acute Assessment and Plan: TSH is within normal limits. Continue levothyroxine Subjective Date/time seen: 02/13/21 12:53 Interval history: Date of service: 02/13/2021 Phong Red is a 75 year old male with a history of dementia and memory care, iron-deficiency anemia, coronary artery disease, aortic stenosis s/p TAVR, diabetes mellitus, hypothyroidism who is seen in follow-up for colitis with rectal bleeding. He is a somewhat poor historian given his dementia. He is able to answer most of my questions appropriately though unclear how much he comprehends. He denies any abdominal pain. He tells me he has not had any more bowel movements today. No further episodes of rectal bleeding. He denies shortness of breath, cough, chest pain. Denies dizziness or lightheadedness. Denies urinary symptoms. I spoke with his nurse who tells me that he has had 2 bowel movements so far today with no evidence of obvious GI bleeding. He
[2021-02-13 14:00] VITALS: BP 128/72; PULSE 65; RESP 16; TEMP 36.6; O2SAT 98
[2021-02-13 16:31] LABS: Glucose Point of Care 195 mg/dl (65-105)
[2021-02-13 18:32] LABS: Hematocrit 30.6 % (42.0-52.0); Hemoglobin 9.8 g/dL (14.0-18.0)
--- NOTE | 2021-02-13 19:04 | WPDGICN ---
Assessment and Plan Assessment and plan (1) Rectal bleeding: Code(s): K62.5 - Hemorrhage of anus and rectum Status: Acute Assessment and Plan: probably from colitis, on antibiotics hb low but stable no abdominal pain last colonoscopy in records 2019 with only hemorrohids (2) Colitis: Code(s): K52.9 - Noninfective gastroenteritis and colitis, unspecified Status: Acute Assessment and Plan: medical treament (3) Chronic anemia: Code(s): D64.9 - Anemia, unspecified Status: Acute Assessment and Plan: hb stable (4) Chronic kidney disease, stage 4 (severe): Code(s): N18.4 - Chronic kidney disease, stage 4 (severe) Status: Acute Assessment and Plan: stable (5) Hypertension: Code(s): I10 - Essential (primary) hypertension Status: Acute (6) Vascular dementia without behavioral disturbance: Code(s): F01.50 - Vascular dementia without behavioral disturbance Status: Acute GI Consult Note Consult date/time: 02/13/21 19:04 Reason for consult: colitis, blood in stool HPI: Phong Red is a 75 year old male with history of dementia, coronary artery disease, aortic stenosis status post TAVR, GERD, diabetes admitted here after staff at [facility] where he is a resident found blood in his dependent. He is not best historian and gets confused. He has chronic alternating diarrhea and constipation, it seems that he had a sudden urge to have a bowel movement but he did not make it to the bathroom and was incontinent of a loose stool mixed with bright red blood. CT of the abdomen and pelvis reviewed and showed wall thickening of the sigmoid colon and rectum, likely colitis, and constipation. Admitted to hospital, started on antibiotics. Found records that had colonoscopy 2019 only with hemorrohoids, also had EGD with + H pylori gastritis that was treated successfully. Review of Systems Constitutional: Constitutional: Denies chills Eyes: Eyes: Reports no additional eye complaints ENT: Reports Normal hearing present Cardiovascular: Cardiovascular: Denies chest pain Respiratory: Respiratory: Denies dyspnea Gastrointestinal: Gastrointestinal: Reports hematochezia Genitourinary: Genitourinary: Denies dysuria Musculoskeletal: Musculoskeletal: Denies neck pain Integumentary/Breasts: Skin/Breast: Denies dry skin Neurologic: Reports system reviewed and no additional complaints, except as documented Psychiatric: Psychiatric: Reports no additional psychiatric complaints PMFSH Past Medical History Medical History (Updated 02/12/21 @ 20:24 by Queenie Cagle PA-C) Chronic anemia History of iron deficiency requiring transfusions. Chronic kidney disease, stage 4 (severe) Baseline creatinine is around 2.40. Coronary artery disease COVID-19 (11/2020) Degenerative arthritis Gastroesophageal reflux disease Hyperlipidemia Hypertension Hypothyroidism Non-insulin dependent type 2 diabetes mellitus Severe aortic stenosis Status post TAVR. Vascular dementia without behavioral disturbance Surgical History Surgical History History of cardiac catheterization (08/2013) Revealed severe multivessel coronary artery disease. History of colonoscopy with polypectomy (03/2018) Revealed internal hemorrhoids and colon polyps. History of esophagogastroduodenoscopy (04/2018) Revealed gastric erosions. History of right hip replacement (07/1999) History of tonsillectomy History of transcatheter aortic valve replacement (TAVR) Stented coronary artery Family History Family History Father Acute myocardial infarction, Onset Age: 59 Family history of cardiovascular disease Grandparent Family history of cardiovascular disease Family history of malignant neoplasm Family history of malignant neoplasm of bone
[2021-02-13 19:59] VITALS: BP 186/76; PULSE 68; RESP 20; TEMP 36; O2SAT 100
[2021-02-13 20:00] VITALS: PULSE 68; RESP 20; O2SAT 100
[2021-02-13] MEDS: TAMSULOSIN HCL 0.4 MG CAPSULE BY MOUTH (20:58)
[2021-02-13] MEDS: DONEPEZIL HCL 5 MG TABLET PO (20:58)
[2021-02-13 21:20] LABS: Glucose Point of Care 113 mg/dl (65-105)
[2021-02-14 04:21] VITALS: BP 138/61; PULSE 54; RESP 20; TEMP 36.1; O2SAT 99
[2021-02-14] MEDS: LEVOTHYROXINE SODIUM 100 MCG TABLET PO (05:15)
[2021-02-14 05:43] LABS: Hematocrit 27.5 % (42.0-52.0); Hemoglobin 8.9 g/dL (14.0-18.0); Mean Corpuscular HGB Conc 32.4 g/dl (32-36); Mean Corpuscular Hemoglobin 30.6 pg (26-34); Mean Corpuscular Volume 94.5 fl (80-100); Mean Platelet Volume 10.6 fl (7.4-10.4); Platelet Count Result 156 k/mm3 (150-375); Red Blood Count 2.91 M/mm3 (4.6-6.20); Red Cell Distribution Width 13.6 % (11.5-14.5); White Blood Count 4.4 K/mm3 (4.5-10.0)
[2021-02-14 05:44] LABS: Anion Gap 7 mmol/L (8-16); Blood Urea Nitrogen 35 mg/dL (9-20); Calcium 8.8 mg/dL (8.4-10.2); Carbon Dioxide 31 mmol/L (22-30); Chloride 102 mmol/L (98-107); Estimated CRCL calculation 30 ml/min; Estimated Glomerular Filt Rate 27; Glucose 121 mg/dL (65-110); Potassium 3.6 mmol/L (3.4-5.0); Sodium 140 mmol/L (137-145)
[2021-02-14] MEDS: FUROSEMIDE 40 MG TABLET PO (08:40)
[2021-02-14] MEDS: QUEtiapine FUMARATE 25 MG TABLET 50 MG PO (08:40)
[2021-02-14] MEDS: ACIDOPHILUS/BULGARICUS CHEWABLE TABLET 1 TABLET PO ×2 (08:40→17:19)
[2021-02-14] MEDS: FERROUS SULFATE 324 MG TABLET PO ×2 (08:41→17:19)
[2021-02-14] MEDS: ATORVASTATIN 20 MG TABLET PO (08:41)
[2021-02-14] MEDS: FAMOTIDINE 20 MG TABLET PO (08:41)
[2021-02-14] MEDS: PRAMIPEXOLE 1 MG TABLET BY MOUTH (08:41)
[2021-02-14] MEDS: CHOLECALCIFEROL 1,000 UNITS TABLET 2000 UNITS PO (08:41)
[2021-02-14] MEDS: RANOLAZINE 500 MG TAB.ER.12H PO (08:41)
[2021-02-14] MEDS: DIVALPROEX SODIUM DR 250 MG TABEC PO (08:41)
[2021-02-14] MEDS: CYANOCOBALAMIN 1,000 MCG TABLET 1000 MCG PO (08:41)
[2021-02-14 11:21] LABS: Glucose Point of Care 111 mg/dl (65-105)
[2021-02-14 14:00] VITALS: BP 146/63; PULSE 66; RESP 18; TEMP 35.8; O2SAT 100
[2021-02-14 15:36] LABS: Hematocrit 32.2 % (42.0-52.0); Hemoglobin 10.3 g/dL (14.0-18.0)
[2021-02-14 15:41] LABS: EDCOVIDSCREEN Negative (Negative)
--- NOTE | 2021-02-14 16:01 | PM.DS ---
DS: Admitting Diagnosis Discharge Date 02/14/2021 Admitting Diagnosis Colitis DS: Discharge Diagnosis Discharge Diagnosis (1) Colitis: Code(s): K52.9 - Noninfective gastroenteritis and colitis, unspecified Status: Acute Assessment and Plan: CT of the abdomen and pelvis showed wall thickening of the sigmoid colon and rectum, likely colitis. H remained afebrile and did not have leukocytosis. May be related to stercoral colitis given his constipation vs infectious colitis. Ischemic colitis unlikely and lactic acid within normal limits. He was started on IV Zosyn. Stool cultures negative. He was seen in consultation by Gastroenterology who recommended continuation of p.o. Flagyl as an outpatient with GI follow-up in 2-3 weeks. He was having regular bowel movements and tolerating his diet. (2) Rectal bleeding: Code(s): K62.5 - Hemorrhage of anus and rectum Status: Acute Assessment and Plan: Likely related to colitis and/or bleeding from internal hemorrhoids, which revealed from his last colonoscopy in 2019. Hemoglobin and hematocrit remained stable. No further evaluation per Gastroenterology. (3) Chronic anemia: Code(s): D64.9 - Anemia, unspecified Status: Acute Assessment and Plan: Hemoglobin and hematocrit monitored closely and remained stable as above. (4) Hypoalbuminemia: Code(s): E88.09 - Other disorders of plasma-protein metabolism, not elsewhere classified Status: Acute Assessment and Plan: Albumin was 2.7 and his total protein also noted to be low at 5.0. Noted that weight loss had been previously documented and therefore this may be related to malnutrition, the preop you min levels were normal.. No evidence of protein loss on UA. Follow-up with PCP. (5) Chronic kidney disease, stage 4 (severe): Code(s): N18.4 - Chronic kidney disease, stage 4 (severe) Status: Acute Assessment and Plan: Creatinine remained stable on review of previous labs. (6) Non-insulin dependent type 2 diabetes mellitus: Code(s): E11.9 - Type 2 diabetes mellitus without complications Status: Acute Assessment and Plan: A1c is 6.3. Blood sugars managed with Accu-Cheks, sliding scale insulin, and hypoglycemic protocol. Saxagliptin held during admission as it was non formulary, resumed on discharge. (7) Vascular dementia without behavioral disturbance: Code(s): F01.50 - Vascular dementia without behavioral disturbance Status: Acute Assessment and Plan: Continue donepezil. Fall precautions implemented. (8) Coronary artery disease: Qualifiers: Coronary Disease-Associated Artery/Lesion type: [place] artery [place] vs. transplanted heart: [place] heart Associated angina: without angina Qualified Code(s): I25.10 - Atherosclerotic heart disease of [place] coronary artery without angina pectoris Code(s): I25.10 - Atherosclerotic heart disease of [place] coronary artery without angina pectoris Status: Acute Assessment and Plan: No acute issues. Aspirin and clopidogrel held during admission given rectal bleeding. Resumed on discharge as no further episodes of bleeding with stable hemoglobin and hematocrit. (9) Hypothyroidism: Code(s): E03.9 - Hypothyroidism, unspecified Status: Acute Assessment and Plan: TSH is within normal limits. Continue levothyroxine DS: Summary Hospital Course Hospital Course: Date of admission: 02/12/2021 Date of discharge: 02/14/2021 Phong Red is a 75 year old male with a history of dementia and memory care, iron-deficiency anemia, coronary artery disease, aortic stenosis s/p TAVR, diabetes mellitus, hypothyroidism who presented to the emergency department on 02/12/2021 due to concerns for GI bleeding after having found blood in his depends at his nursing facility. On presentation to the emergency departme
--- NOTE | 2021-02-14 16:44 | WPDGIPROGNO ---
Progress Note: A&P Assessment and Plan (1) Colitis: Code(s): K52.9 - Noninfective gastroenteritis and colitis, unspecified Status: Acute Assessment and Plan: doing well, no pain complete 7 more days of flagyl stool sample negative thus far tolerating diet ok to discharge by gi standpoint, his last colonoscopy was 2019 follow-up office in 2-4 weeks (2) Chronic anemia: Code(s): D64.9 - Anemia, unspecified Status: Acute Assessment and Plan: hb stable, no more rectal bleeding (3) Chronic kidney disease, stage 4 (severe): Code(s): N18.4 - Chronic kidney disease, stage 4 (severe) Status: Acute Assessment and Plan: stable (4) Rectal bleeding: Code(s): K62.5 - Hemorrhage of anus and rectum Status: Acute (5) Vascular dementia without behavioral disturbance: Code(s): F01.50 - Vascular dementia without behavioral disturbance Status: Acute Subjective Date/time seen: 02/14/21 16:44 Interval history: doing well, no more bleeding and no abdominal pain, tolerated diet Review of Systems Review of Systems: All systems reviewed & are unremarkable except as noted in HPI and below Exam Const: General: comfortable and no acute distress HENMT: General nose exam: Normal nares present Eyes: General: appearance normal, both eyes and all related structures Neck: Neck: no JVD Resp: Auscultation: clear to auscultation bilaterally Cardio: Rate: regular rate Rhythm: regular rhythm GI: Inspection: non-distended GI Palp: Yes Soft to palpation and No Guarding due to palpation present (GI) Auscultation: normal bowel sounds Skin: General skin exam: normal color Neuro: Speech: normal speech Motor exam (neuro): Normal motor muscle tone present throughout Other: awake and alert x2, gets confused Extrem: General: normal to inspection Psych: Mental Status: mental status grossly normal Objective Data Vital Signs Vital Signs: Vital Signs - 24 hr 02/13/21 19:59 02/13/21 20:00 02/14/21 04:21 Temperature 96.8 F L 96.9 F L Pulse Rate 68 68 54 L Respiratory Rate 20 20 20 Blood Pressure 186/76 H 138/61 Pulse Oximetry 100 100 99 02/14/21 14:00 Temperature 96.5 F L Pulse Rate 66 Respiratory Rate 18 Blood Pressure 146/63 H Pulse Oximetry 100 Intake/Output Intake/Output: Intake & Output 02/11/21 02/12/21 02/13/21 02/14/21 23:59 23:59 23:59 23:59 Intake Total 340 1320 1110 Output Total 1900 800 Balance 340 -580 310 Meds/Results Medications: Active Medications Generic Name Dose Route Start Last Admin Trade Name Freq PRN Reason Stop Dose Admin Acetaminophen 650 mg 02/12/21 20:32 Acetaminophen 325 Mg Tablet PO Q6H PRN Pain Atorvastatin Calcium 20 mg 02/13/21 09:00 02/14/21 08:41 Atorvastatin 20 Mg Tablet PO 20 mg DAILY JULIETH Administration Cyanocobalamin 1,000 mcg 02/13/21 09:00 02/14/21 08:41 Cyanocobalamin 1,000 Mcg Tablet PO 1,000 mcg DAILY JULIETH Administration Dextrose 12.5 gm 02/12/21 14:13 Dextrose 50% 25 Gm/50 Ml Syringe IV PUSH PRN PRN Hypoglycemia Protocol Divalproex Sodium 250 mg 02/12/21 21:00 02/14/21 08:[address] 250 Mg Tabec PO 250 mg Q12HR JULIETH Administration Donepezil HCl 5 mg 02/12/21 21:00 02/13/21 20:58 Donepezil Hcl 5 Mg Tablet PO 5 mg HS JULIETH Administration Famotidine 20 mg 02/12/21 21:00 02/14/21 08:41 Famotidine 20 Mg Tablet PO 20 mg Q12HR JULIETH Administration Ferrous Sulfate 324 mg 02/13/21 08:00 02/14/21 08:41 Ferrous Sulfate 324 Mg Tablet PO 324 mg BIDWM JULIETH Administration Furosemide 40 mg 02/13/21 09:00 02/14/21 08:40 Furosemide 40 Mg Tablet PO 40 mg DAILY JULIETH Administration Glucagon 1 mg 02/12/21 14:13 Glucagon For Inj 1 Mg Vial IM PRN PRN Hypoglycemia Protocol Glucose 15 gm 02/12/21 14:13 Glucose Oral Gel 15 Gm Of Glucse In 37.5 Gm Tube
== END 2021-02-14 18:00 ==
LOC: ANHED 12:20 → ANH2MED 12:42
PROVIDERS: Physician Assistant; Admitting Provider Family Medicine; Emergency Provider Emergency Medicine; PCP Internal Medicine; Visit Provider Internal Medicine
DX: K52.9 Noninfective gastroenteritis and colitis, unspecified (principal); K62.5 Hemorrhage of anus and rectum; D50.9 Iron deficiency anemia, unspecified; E88.09 Other disorders of plasma-protein metabolism, not elsewhere classified; E11.22 Type 2 diabetes mellitus with diabetic chronic kidney disease; E03.9 Hypothyroidism, unspecified; I12.9 Hypertensive chronic kidney disease with stage 1 through stage 4 chronic kidney disease, or unspecified chronic kidney disease; N18.4 Chronic kidney disease, stage 4 (severe); F01.50 Vascular dementia, unspecified severity, without behavioral disturbance, psychotic disturbance, mood disturbance, and anxiety; I25.10 Atherosclerotic heart disease of native coronary artery without angina pectoris; K21.9 Gastro-esophageal reflux disease without esophagitis; Z95.4 Presence of other heart-valve replacement; Z79.899 Other long term (current) drug therapy; Z20.822 Contact with and (suspected) exposure to COVID-19
CPT/HCPCS: 36415; 74176; 80048; 80053; 80164; 81001; 81050; 82043; 82274; 82948; 83605; 83735; 84134; 84156; 84443; 85014; 85018; 85025; 85027; 85610; 85730; 86850; 86900; 86901; 87015; 87045; 87086; 87088; 87269; 87272; 87426; 87427; 89055; 93005; 96365; 96366; 96376; 97162; 97165; 99285; A9270; C9803; G0378; J2543

== ENCOUNTER 2021-02-24 11:24 | Emergency (ER) | payer MEDICARE, SELFPAY ==
--- NOTE | ~2021-02-24 | CT_ITS ---
EXAMINATION: CT brain wo con DATE: 02/24/2021 12:42 INDICATION: Fall. TECHNIQUE: Computed tomography (CT) of the head was performed without intravenous contrast. The mA wa s adjusted according to patient size. Iterative reconstruction technique was employed. The dose-lengt h product was 681.00 mGy-cm. COMPARISON: Head CT 02/28/2019 FINDINGS: There is no intracranial hemorrhage, acute infarction, or abnormal intracranial mass lesion . There are dystrophic calcifications of the bilateral basal ganglia. The ventricles are normal in si ze. The paranasal sinuses are clear. The orbits are normal. The mastoid air cells are normal. IMPRESSION: 1. No acute intracranial pathology. Reviewed, dictated and finalized at location A. [employer]
--- NOTE | ~2021-02-24 | XR_ITS ---
EXAMINATION: XR tibia fibula RT 2V INDICATION: Soft tissue laceration of the right leg TECHNIQUE: Two views of the right tibia and fibula are obtained on four radiographs. COMPARISON: None available FINDINGS: Bone alignment is normal. There is no fracture. There is soft tissue swelling of the leg. N o radiopaque foreign body is identified. Calcified atherosclerosis is noted. IMPRESSION: 1. Soft tissue swelling without acute osseous abnormality. Reviewed, dictated and finalized at location A. ENTRY MANAGER
--- NOTE | ~2021-02-24 | XR_ITS ---
EXAMINATION: XR pelvis 1-2V DATE: 02/24/2021 13:04 INDICATION: Right leg injury post fall TECHNIQUE: An anteroposterior view of the pelvis was obtained on 2 radiographs. COMPARISON: CT abdomen and pelvis dated 02/04/2021 FINDINGS: Right total hip arthroplasty which is in near anatomic alignment. There is pedestal formation along t he medial tip of the femoral component. No periprosthetic lucency. No fracture. Surgical clips the ri t groin likely related to prior vascular access. Mild left hip osteoarthritis. Lumbar levoscoliosis with moderate spondylosis. IMPRESSION: 1. No acute osseous abnormality. 2. Right total hip arthroplasty. 2. Lumbar levoscoliosis with moderate spondylosis. Reviewed, dictated and finalized at location B. [employer]
--- NOTE | ~2021-02-24 | XR_ITS ---
EXAMINATION: XR ankle RT min 3V INDICATION: Right ankle pain TECHNIQUE: Four views of the right ankle are obtained. COMPARISON: None available FINDINGS: There is no acute fracture, dislocation, or subluxation. There is soft tissue swelling of a nkle. Heterotopic ossification distal to the lateral malleolus may reflect sequela of prior avulsion injury. Posterior and plantar calcaneal enthesophytes are noted. There is calcified atherosclerosis. IMPRESSION: 1. Soft tissue swelling of ankle without acute osseous abnormality. Reviewed, dictated and finalized at location A. ING CARHOP
[2021-02-24 11:50] VITALS: BP 101/54; PULSE 57; RESP 18; TEMP 36.1; O2SAT 100
--- NOTE | 2021-02-24 12:38 | PC.NURSE ---
Pt off floor in radiology
--- NOTE | 2021-02-24 13:50 | ED.GENADULT ---
HPI - General Adult General Chief complaint: Extremity Injury, Lower Stated complaint: fall with ankle injury Time Seen by Provider: 02/24/21 12:18 Source: RN notes reviewed History of Present Illness HPI narrative: Patient presents emergency department from [facility] via EMS for fall. Patient states he does not recall specifically what happened but states that he fell patient notes a wound over his right leg and some swelling over the right lower leg and ankle he does not believe he struck his head he denies any headache or vision changes chest pain shortness of breath abdominal pain or any other symptoms patient did have dressing placed to right leg by long-term staff Related Data Home Medications Medication Instructions Recorded Confirmed aspirin [Aspir-81] 81 mg PO DAILY 02/28/19 02/12/21 cinnamon bark [Cinnamon] 500 mg PO DAILY 02/28/19 02/12/21 cyanocobalamin (vitamin B-12) 1,000 mcg PO DAILY 02/28/19 02/12/21 [Vitamin B-12] fish [id number]-3-vit C-vit E 1,000 mg PO DAILY 02/28/19 02/12/21 nitroglycerin [Nitrostat] 0.4 mg SUBLINGUAL Q5-15M PRN 02/28/19 02/12/21 ranolazine 500 mg PO Q12H 02/28/19 02/12/21 atorvastatin 20 mg tablet 20 mg PO DAILY 05/08/19 02/12/21 acetaminophen 650 mg PO Q6H PRN 07/05/20 02/12/21 cholecalciferol (vitamin D3) 50 mcg PO DAILY 07/05/20 02/12/21 quetiapine 50 mg PO BID 07/05/20 02/12/21 Acidophilus-Pectin 1 tablet PO BID 12/04/20 02/12/21 divalproex [Depakote] 250 mg PO Q12HR 12/04/20 02/12/21 donepezil 5 mg PO HS 12/04/20 02/12/21 ferrous sulfate 325 mg PO BID 12/04/20 02/12/21 Allergies Allergy/AdvReac Type Severity Reaction Status Date / Time No Known Allergies Allergy Verified 02/24/21 12:20 Review of Systems Review of Systems: Gen.: Denies fevers or chills Eyes: Denies eye pain or visual change ENT: Denies congestion Respiratory: Denies shortness of breath CV: Denies chest pain GI: Denies abdominal pain nausea, emesis Musculoskeletal: Denies back pain or muscle pain Neuro: Denies loss of consciousness or headache Skin: See HPI Except as documented, all other systems reviewed and negative [facility] Past Medical History Medical History Chronic anemia History of iron deficiency requiring transfusions. Chronic kidney disease, stage 4 (severe) Baseline creatinine is around 2.40. Coronary artery disease COVID-19 (11/2020) Degenerative arthritis Gastroesophageal reflux disease Hyperlipidemia Hypertension Hypothyroidism Non-insulin dependent type 2 diabetes mellitus Severe aortic stenosis Status post TAVR. Vascular dementia without behavioral disturbance Surgical History Surgical History History of cardiac catheterization (08/2013) Revealed severe multivessel coronary artery disease. History of colonoscopy with polypectomy (03/2018) Revealed internal hemorrhoids and colon polyps. History of esophagogastroduodenoscopy (04/2018) Revealed gastric erosions. History of right hip replacement (07/1999) History of tonsillectomy History of transcatheter aortic valve replacement (TAVR) Stented coronary artery Family History Family History Father Acute myocardial infarction, Onset Age: 59 Family history of cardiovascular disease Grandparent Family history of cardiovascular disease Family history of malignant neoplasm Family history of malignant neoplasm of bone Social History Social History (Updated 02/12/21 @ 20:18 by Queenie Cagle PA-C) Social History: Surrogate decision maker: Nettie Red, daughter. Code status: Do not resuscitate. Smoking status: Never smoker Second hand tobacco smoke exposure: Yes ( smoked) Alcohol intake: current Substance use: unknown Additional living arrangements comments: The patient lives in [place]. Additional occupation/education comments: Retire
--- NOTE | 2021-02-24 13:53 | PC.NURSE ---
Report called for NOA Macias at [facility]. Gave update on patient, patient to be discharged. [facility] does not have transportation.
--- NOTE | 2021-02-24 13:59 | PC.NURSE ---
Called patient's daughter, Nettie, for transport. Daughter is attempting to take off work early to transport patient, will return call to ER [facility].
--- NOTE | 2021-02-24 15:10 | PC.NURSE ---
Called daughter again (Nettie) at [phone], left message requesting update on if she is able to fiber picker patient or if we should call an ambulance.
[2021-02-24 15:18] VITALS: BP 134/73; PULSE 57; RESP 18; O2SAT 100
--- NOTE | 2021-02-24 15:34 | PC.NURSE ---
ETA for ambulance transfer is 4:15
[2021-02-24 17:32] VITALS: BP 144/78; PULSE 60; RESP 18; O2SAT 100
== END 2021-02-24 17:35 ==
PROVIDERS: Emergency Provider Emergency Medicine; PCP Internal Medicine
DX: S80.811A Abrasion, right lower leg, initial encounter (principal); S80.11XA Contusion of right lower leg, initial encounter; E11.22 Type 2 diabetes mellitus with diabetic chronic kidney disease; I12.9 Hypertensive chronic kidney disease with stage 1 through stage 4 chronic kidney disease, or unspecified chronic kidney disease; N18.4 Chronic kidney disease, stage 4 (severe); Z86.16 Personal history of COVID-19; E78.5 Hyperlipidemia, unspecified; I25.10 Atherosclerotic heart disease of native coronary artery without angina pectoris; E03.9 Hypothyroidism, unspecified; I35.0 Nonrheumatic aortic (valve) stenosis; F01.50 Vascular dementia, unspecified severity, without behavioral disturbance, psychotic disturbance, mood disturbance, and anxiety; D50.9 Iron deficiency anemia, unspecified; M19.90 Unspecified osteoarthritis, unspecified site; Z79.82 Long term (current) use of aspirin; Z96.641 Presence of right artificial hip joint; Z95.2 Presence of prosthetic heart valve; Z95.5 Presence of coronary angioplasty implant and graft; Z66 Do not resuscitate; M47.816 Spondylosis without myelopathy or radiculopathy, lumbar region; W19.XXXA Unspecified fall, initial encounter
CPT/HCPCS: 70450; 72170; 73590; 73610; 99284

== ENCOUNTER 2021-08-23 12:44 | Observation (INO) | payer MEDICARE, SELFPAY ==
[2021-08-23] VITALS (14 sets, daily range): BP systolic 93–154; BP diastolic 56–128; PULSE 68–92; RESP 8–20; TEMP 36.1–36.7; O2SAT 97–100; BMI 24.0
--- NOTE | ~2021-08-23 | XR_ITS ---
EXAMINATION: XR chest 2V Exam Date/Time: 08/23/2021 14:20 CDT HISTORY: weakness, fall Comparison: 12/03/2020. RESULT: Lines, tubes, and devices: Cardiac valve replacement. Lungs and pleura: Limited lateral view with severely decreased lung volume. Lower lung opacity over the spine in lateral view may reflect crowding and atelectasis from low volumes over the spine sign o f infection/consolidation. Cardiomediastinal silhouette: Stable cardiomediastinal silhouette. Other: No acute osseous or upper abdominal finding. IMPRESSION: Limited lateral view, demonstrating lower lung opacities related to artifact and low volume versus co nsolidation/infection. Reviewed, dictated and finalized at location K. IMPRESSION: Limited lateral view, demonstrating lower lung opacities related to artifact an d low volume versus consolidation/infection.
--- NOTE | ~2021-08-23 | CT_ITS ---
EXAMINATION: CT brain wo con DATE: 08/23/2021 13:52 INDICATION: Frequent falls. Altered mental state. Confusion. TECHNIQUE: Computed tomography (CT) of the head was performed without intravenous contrast. The mA wa s adjusted according to patient size. Iterative reconstruction technique was employed. Exam dose: 60 5.33 mGy-cm total exam DLP. COMPARISON: 02/24/2021 CT brain FINDINGS: Bilateral vertebral, basilar and bilateral carotid siphon and supraclinoid internal carotid artery calcifications. There is nonspecific diminished attenuation of the cerebral white matter, lik chaparrita due to chronic small vessel ischemic changes. Stable bilateral but basal ganglia calcifications, most prominent at the head of the left caudate nuc leus. No intracranial mass lesion or hemorrhage or cerebrovascular accident, midline shift or mass effect e ffect is noted. No subdural or epidural hematoma. No fracture or bone destruction of the cranial vault. The mastoid air cells and included paranasal si nuses are unremarkable. IMPRESSION: Cerebral atherosclerosis and chronic small vessel ischemic changes of cerebral white mat ter Stable bilateral basal ganglia calcifications No acute intracranial finding or skull fracture Reviewed, dictated and finalized at Location A. Reviewed, dictated and finalized at location A. IMPRESSION: Cerebral atherosclerosis and chronic small vessel ischemic changes of cerebral white matter Stable bilateral basal ganglia calcifications No acute intracranial finding or skull fracture
--- NOTE | 2021-08-23 13:35 | ECG_ITS ---
Measurements Intervals [place] Rate: 71 P: 50 [place]: 188 QRS: -38 QRSD: 158 T: 110 QT: 455 QTc: 495 Interpretive Statements PROBABLE SINUS RHYTHM WITH FREQUENT VENTRICULAR PREMATURE COMPLEXES LEFT AXIS DEVIATION [QRS AXIS < -30] INTRAVENTRICULAR CONDUCTION DELAY [130+ ms QRS DURATION] COMPARED TO ECG 02/13/2021 09:01:54 NO SIGNIFICANT CHANGES Electronically Signed On 08-23-2021 22:16:30 CDT by Mayra Quiroga M.D.
--- NOTE | 2021-08-23 14:26 | ED.RECABL ---
HPI - Recheck/Abnormal Lab/Rx General Chief Complaint: Recheck/Abnormal Lab/Rx Stated Complaint: falls Time Seen by Provider: 08/23/21 13:35 Source: patient, family, RN notes reviewed and old records reviewed Mode of arrival: EMS Limitations: dementia History of Present Illness HPI narrative: This is a 76 year old male with history DM, Dementia, hypertension, chronic kidney disease who presents for evaluation of weakness and frequent falls. Patient 's daughter is at bedside to provide history. She states patient has been falling daily for the past week. She states today he fell trying to get up from lunch and he fell. Nursing staff states patient does appear weak when trying to transfer. Patient is oriented to person. He is unable to provide history of his wall. He denies any pain, nausea, vomiting, chest pain, shortness of breath. Related Data Home Medications Medication Instructions Recorded Confirmed aspirin 81 mg tablet,delayed 81 mg PO DAILY 02/28/19 08/23/21 release (Aspir-) cinnamon bark 500 mg capsule 500 mg PO DAILY 02/28/19 08/23/21 (Cinnamon) cyanocobalamin (vitamin B-12) 1,000 mcg PO DAILY 02/28/19 08/23/21 1,000 mcg tablet (Vitamin B-12) fish han-nzmqi-[id number]-vit C-vit E 1,000 mg PO DAILY 02/28/19 08/23/21 nitroglycerin 0.4 mg sublingual 0.4 mg sublingual Q5-15M PRN Pain 02/28/19 08/23/21 tablet (Nitrostat) ranolazine 500 mg tablet,extended 500 mg PO Q12H 02/28/19 08/23/21 release,12 hr atorvastatin 20 mg tablet 20 mg PO DAILY 05/08/19 08/23/21 acetaminophen 325 mg tablet 650 mg PO Q6H PRN Pain 07/05/20 08/23/21 cholecalciferol (vitamin D3) 50 50 mcg PO DAILY 07/05/20 08/23/21 mcg (2,000 unit) capsule quetiapine 25 mg tablet 50 mg PO BID 07/05/20 08/23/21 Lactobacillus acidophilus-pectin 1 tablet PO BID 12/04/20 08/23/21 chewable tablet (Acidophilus-Pectin chewable tablet) divalproex 250 mg tablet,delayed 500 mg PO Q12HR 12/04/20 08/23/21 release (Depakote) donepezil 5 mg tablet 5 mg PO HS 12/04/20 08/23/21 ferrous sulfate 325 mg (65 mg 325 mg PO BID 12/04/20 08/23/21 iron) tablet ascorbate calcium (vitamin C) 500 500 mg PO DAILY 08/23/21 08/23/21 mg tablet famotidine 20 mg tablet 20 mg PO DAILY 08/23/21 08/23/21 finasteride 5 mg tablet 1 tablet PO DAILY 08/23/21 08/23/21 furosemide 40 mg tablet 20 mg PO DAILY 08/23/21 08/23/21 melatonin 3 mg tablet 3 mg PO HS 08/23/21 08/23/21 Allergies Allergy/AdvReac Type Severity Reaction Status Date / Time No Known Allergies Allergy Verified 08/23/21 13:19 Review of Systems Review of Systems: All systems reviewed & are unremarkable except as noted in HPI and below Constitutional: Constitutional: Denies chills, Denies fatigue and Reports weakness Cardiovascular: Cardiovascular: Denies chest pain and Denies rapid heart rate Respiratory: Respiratory: Denies chest congestion and Denies cough Gastrointestinal: Gastrointestinal: Denies abdominal pain, Denies bloating and Denies constipation Genitourinary: Genitourinary: Denies hematuria and Denies genital lesions Neurologic: Denies headache(s) and Denies focal weakness [facility] Past Medical History Medical History Chronic anemia History of iron deficiency requiring transfusions. Chronic kidney disease, stage 4 (severe) Baseline creatinine is around 2.40. Coronary artery disease COVID-19 (11/2020) Degenerative arthritis Gastroesophageal reflux disease Hyperlipidemia Hypertension Hypothyroidism Non-insulin dependent type 2 diabetes mellitus Severe aortic stenosis Status post TAVR. Vascular dementia without behavioral disturbance Surgical History Surgical History History of cardiac catheterization (08/2013) Revealed severe multivessel coronary artery disease. History of colonoscopy with polypectomy (03/2018) Revealed internal hemorrhoids and colon polyps. H
[2021-08-23] MEDS: SODIUM CHLORIDE 0.9% IV 500 ML 999 ML IV CONT (14:41)
[2021-08-23 14:50] LABS: Basophils Percent Auto 0.8 % (0.2-1.2); Eosinophils Percent Auto 0.6 % (0-4.4); Hematocrit 33.2 % (42.0-52.0); Hemoglobin 10.5 g/dL (14.0-18.0); Immature Granulocyte Absolute 0.01 K/mm3 (0.00-0.031); Immature Granulocyte Percent A 0.2 % (0-0.5); Lymphocytes Absolute Auto 1.24 K/mm3 (0.9-3.2); Lymphocytes Percent Auto 23.7 % (18.3-44.2); Mean Corpuscular HGB Conc 31.6 g/dl (32-36); Mean Corpuscular Hemoglobin 31.3 pg (26-34); Mean Corpuscular Volume 98.8 fl (80-100); Mean Platelet Volume 10.9 fl (7.4-10.4); Monocytes Absolute Auto 0.7 K/mm3 (0.1-0.6); Monocytes Percent Auto 12.6 % (2.6-8.5); Neutrophils Absolute Auto 3.3 K/mm3 (1.3-6.7); Neutrophils Percent Auto 62.1 % (45.5-73.1); Platelet Count Result 119 k/mm3 (150-375); Red Blood Count 3.36 M/mm3 (4.6-6.20); White Blood Count 5.2 K/mm3 (4.5-10.0)
[2021-08-23 14:58] LABS: INR 1.1; Prothrombin Time 13.9 Seconds (11.1-14.7)
[2021-08-23 15:01] LABS: Magnesium 2.4 mg/dL (1.6-2.3)
[2021-08-23 15:03] LABS: Appearance Urine Clear (Clear); Bilirubin Urine Negative (Negative); Blood Urine Negative (Negative); Color Urine Yellow (Yellow); Glucose Urine UA Negative (Negative); Ketones Urine Negative (Negative); Leukocyte Esterase Ur Trace LEU/UL (Negative); Nitrate Urine Negative (Negative); Protein Urine Negative (Negative); Specific Grav Ur 1.015 (1.001-1.035); Urobilinogen Urine 0.2 mg/dL (<2.0); pH Urine 5.5 (5.0-9.0)
[2021-08-23 15:11] LABS: RBC Urine 0-2 /hpf (0-2)
[2021-08-23 15:12] LABS: NT Pro B Type Natriuretic Pept 910 pg/mL (5-100); Troponin I 0.014 ng/mL (0.000-0.034)
[2021-08-23 15:13] LABS: Add Urine Microscopic? YES
[2021-08-23 15:13] LABS: Alanine Aminotransferase 21 U/L (6-50); Albumin Level 3.4 g/dL (3.5-5.1); Alkaline Phosphatase 88 U/L (38-126); Anion Gap 3 mmol/L (8-16); Aspartate Amino Transferase 26 U/L (17-59); Bilirubin,Total 0.6 mg/dL (0.2-1.3); Blood Urea Nitrogen 49 mg/dL (9-20); Calcium 9.2 mg/dL (8.4-10.2); Carbon Dioxide 32 mmol/L (22-30); Chloride 112 mmol/L (98-107); Estimated CRCL calculation 24 ml/min; Estimated Glomerular Filt Rate 20; Glucose 107 mg/dL (65-110); Potassium 3.7 mmol/L (3.4-5.0); Sodium 147 mmol/L (137-145)
[2021-08-23] MEDS: SODIUM CHLORIDE 0.9% IV 1,000 ML 999 ML IV CONT (15:47)
[2021-08-23 16:27] LABS: Glucose Point of Care 96 mg/dl (65-105)
--- NOTE | 2021-08-23 16:30 | PM.IMHP ---
H&P: HPI History of Present Illness Date/Time: 08/23/21 16:30 Chief Complaint: Frequent falls. Narrative: This is a 76-year-old male with dementia, coronary artery disease, aortic stenosis status post TAVR, diabetes, hypothyroidism, GERD, anemia, benign prostatic hyperplasia, and chronic kidney disease who presented to the emergency department from [facility] for evaluation of frequent falls. He is unable to provide an accurate history due to his dementia and as such a majority of the following is obtained via a review of his electronic medical records as well as discussions with his daughter Nettie at bedside, with the patient's permission. The patient has a history of falls as he is not always great about using his walker though over he has had daily falls for the past week or so. Staff note that he appears to be weaker when helping him transfer as well and they thought it was best that he come in for evaluation. Vital signs were stable on arrival. Pertinent labs include an increase in BUN and creatinine from baseline as well as mild hypernatremia, and he is being admitted in this setting. The patient's daughter believes that he has been eating and drinking okay and she has no knowledge issues with dysphagia. There have been no reports of vomiting or diarrhea. At the time my evaluation the patient has no complaints but again he is very confused and speaks nonsensically. Review of Systems Review of Systems: Unable to be obtained accurately given his dementia and increasing confusion. [facility] Past Medical History Medical History Chronic anemia History of iron deficiency requiring transfusions. Chronic kidney disease, stage 4 (severe) Baseline creatinine is around 2.40. Coronary artery disease COVID-19 (11/2020) Degenerative arthritis Gastroesophageal reflux disease Hyperlipidemia Hypertension Hypothyroidism Non-insulin dependent type 2 diabetes mellitus Severe aortic stenosis Status post TAVR. Vascular dementia without behavioral disturbance Surgical History Surgical History History of cardiac catheterization (08/2013) Revealed severe multivessel coronary artery disease. History of colonoscopy with polypectomy (03/2018) Revealed internal hemorrhoids and colon polyps. History of esophagogastroduodenoscopy (04/2018) Revealed gastric erosions. History of right hip replacement (07/1999) History of tonsillectomy History of transcatheter aortic valve replacement (TAVR) Stented coronary artery Family History Family History Father Acute myocardial infarction, Onset Age: 59 Family history of cardiovascular disease Grandparent Family history of cardiovascular disease Family history of malignant neoplasm Family history of malignant neoplasm of bone Social History Social History (Updated 08/24/21 @ 00:09 by Queenie Cagle PA-C) Social History: Surrogate decision maker: Nettie Red, daughter. Code status: Do not resuscitate. Smoking status: Never smoker Second hand tobacco smoke exposure: Yes Alcohol intake: never Substance use: never Additional living arrangements comments: Resident of [facility]. Additional occupation/education comments: Retired. Spiritual care concerns: No Meds Home Medications and Allergies Home Medications Medication Instructions Recorded Confirmed Type aspirin 81 mg tablet,delayed 81 mg PO DAILY 02/28/19 08/23/21 History release (Aspir-) cinnamon bark 500 mg capsule 500 mg PO DAILY 02/28/19 08/23/21 History (Cinnamon) cyanocobalamin (vitamin B-12) 1,000 mcg PO DAILY 02/28/19 08/23/21 History 1,000 mcg tablet (Vitamin B-12) fish [id number]-0-vit C-vit E 1,000 mg PO DAILY 02/28/19 08/23/21 History nitroglycerin 0.4 mg sublingual 0.4 mg sublingual
[2021-08-23 16:56] LABS: SARS-CoV-2 RNA PCR Negative
--- NOTE | 2021-08-23 17:31 | ADMGEN ---
This patient, Phong Red, was admitted to Medical Room 244-. Patient/family oriented to hospital policies and general routines including ID bracelet, bed and alarms, visiting hours, pain management, procedures, bathroom and other care routines, personal items, smoking policy, room service/diet, and visiting hours. Information on how to activate the Rapid Response Team has been discussed. Patient/Family are encouraged to report perceived risks to care and to ask questions if they do not understand what they are told or what they should do.
[2021-08-23 17:40] LABS: Glucose Point of Care 120 mg/dl (65-105)
[2021-08-23] MEDS: SODIUM CHLORIDE 0.9% IV 1,000 ML 125 ML IV CONT (17:40)
[2021-08-23 21:05] LABS: Glucose Point of Care 132 mg/dl (65-105)
[2021-08-23 22:10] LABS: Anion Gap 4 mmol/L (8-16); Blood Urea Nitrogen 46 mg/dL (9-20); Calcium 8.5 mg/dL (8.4-10.2); Carbon Dioxide 30 mmol/L (22-30); Chloride 111 mmol/L (98-107); Estimated CRCL calculation 25 ml/min; Estimated Glomerular Filt Rate 21; Glucose 165 mg/dL (65-110); Potassium 3.6 mmol/L (3.4-5.0); Sodium 145 mmol/L (137-145)
[2021-08-23] MEDS: QUEtiapine FUMARATE 25 MG TABLET 50 MG PO (22:22)
[2021-08-23] MEDS: DONEPEZIL HCL 5 MG TABLET PO (22:22)
[2021-08-23] MEDS: MELATONIN 3 MG TABLET PO (22:22)
[2021-08-23] MEDS: TAMSULOSIN HCL 0.4 MG CAPSULE BY MOUTH (22:22)
[2021-08-23] MEDS: RANOLAZINE 500 MG TAB.ER.12H PO (22:22)
[2021-08-23] MEDS: PRAMIPEXOLE 1 MG TABLET BY MOUTH (22:22)
[2021-08-23] MEDS: DIVALPROEX SODIUM DR 250 MG TABEC 500 MG PO (22:22)
[2021-08-24] VITALS (12 sets, daily range): BP systolic 95–153; BP diastolic 34–75; PULSE 46–95; RESP 12–20; TEMP 36.3–36.6; O2SAT 98–99
[2021-08-24] MEDS: LEVOTHYROXINE SODIUM 100 MCG TABLET PO (05:31)
[2021-08-24 05:41] LABS: Basophils Percent Auto 0.5 % (0.2-1.2); Eosinophils Percent Auto 0.9 % (0-4.4); Hemoglobin 8.6 g/dL (14.0-18.0); Immature Granulocyte Absolute 0.02 K/mm3 (0.00-0.031); Immature Granulocyte Percent A 0.5 % (0-0.5); Lymphocytes Absolute Auto 1.38 K/mm3 (0.9-3.2); Lymphocytes Percent Auto 31.7 % (18.3-44.2); Mean Corpuscular HGB Conc 30.7 g/dl (32-36); Mean Corpuscular Hemoglobin 30.8 pg (26-34); Mean Corpuscular Volume 100.4 fl (80-100); Mean Platelet Volume 11.2 fl (7.4-10.4); Monocytes Absolute Auto 0.6 K/mm3 (0.1-0.6); Monocytes Percent Auto 13.8 % (2.6-8.5); Neutrophils Absolute Auto 2.3 K/mm3 (1.3-6.7); Neutrophils Percent Auto 52.6 % (45.5-73.1); Platelet Count Result 95 k/mm3 (150-375); Red Blood Count 2.79 M/mm3 (4.6-6.20); Red Cell Distribution Width 13.8 % (11.5-14.5); White Blood Count 4.4 K/mm3 (4.5-10.0)
[2021-08-24 06:06] LABS: Alanine Aminotransferase 15 U/L (6-50); Albumin Level 2.6 g/dL (3.5-5.1); Alkaline Phosphatase 67 U/L (38-126); Anion Gap 1 mmol/L (8-16); Aspartate Amino Transferase 21 U/L (17-59); Bilirubin,Total 0.5 mg/dL (0.2-1.3); Blood Urea Nitrogen 42 mg/dL (9-20); Calcium 8.6 mg/dL (8.4-10.2); Carbon Dioxide 31 mmol/L (22-30); Chloride 114 mmol/L (98-107); Creatine Kinase 61 U/L (55-170); Estimated CRCL calculation 27 ml/min; Estimated Glomerular Filt Rate 23; Glucose 94 mg/dL (65-110); Potassium 3.5 mmol/L (3.4-5.0); Sodium 146 mmol/L (137-145)
[2021-08-24 07:47] LABS: Glucose Point of Care 102 mg/dl (65-105)
[2021-08-24] MEDS: SODIUM CHLORIDE 0.9% IV 1,000 ML 75 ML IV CONT ×2 (07:54→20:11)
[2021-08-24] MEDS: FINASTERIDE 5 MG TABLET PO (07:59)
[2021-08-24] MEDS: FAMOTIDINE 20 MG TABLET PO (07:59)
[2021-08-24] MEDS: OMEGA 3 POLYUNSAT FATTY ACIDS 1 GM CAP PO (07:59)
[2021-08-24] MEDS: DIVALPROEX SODIUM DR 250 MG TABEC 500 MG PO ×2 (07:59→20:12)
[2021-08-24] MEDS: ACIDOPHILUS/BULGARICUS CHEWABLE TABLET 1 TABLET PO ×2 (07:59→17:30)
[2021-08-24] MEDS: RANOLAZINE 500 MG TAB.ER.12H PO ×2 (07:59→20:12)
[2021-08-24] MEDS: QUEtiapine FUMARATE 25 MG TABLET 50 MG PO ×2 (07:59→20:12)
[2021-08-24] MEDS: ASCORBIC ACID 500 MG TABLET PO (07:59)
[2021-08-24] MEDS: CLOPIDOGREL BISULFATE 75 MG TABLET PO (08:00)
[2021-08-24] MEDS: PRAMIPEXOLE 1 MG TABLET BY MOUTH ×2 (08:00→20:12)
[2021-08-24] MEDS: CYANOCOBALAMIN 1,000 MCG TABLET 1000 MCG PO (08:00)
[2021-08-24] MEDS: ASPIRIN 81 MG ENTERIC TABLET PO (08:00)
[2021-08-24] MEDS: CHOLECALCIFEROL 1,000 UNITS TABLET 2000 UNITS PO (08:00)
[2021-08-24] MEDS: FERROUS SULFATE 324 MG TABLET PO ×2 (08:00→17:30)
[2021-08-24] MEDS: ATORVASTATIN 20 MG TABLET PO (08:00)
--- NOTE | 2021-08-24 09:52 | PM.IMPN ---
Progress Note: A&P Assessment and Plan (1) Frequent falls: Code(s): R29.6 - Repeated falls Status: Acute Assessment and Plan: May be related to worsening renal function though it sounds as though he is not good about using his walker to ambulate. Check orthostatic vital signs and initiate fall precautions. Irregular heart rhythm on exam today, no notable history of AFIB, will check EKG. - PT/OT consulted. - Speech consulted. - EKG (2) Generalized weakness: Code(s): R53.1 - Weakness Status: Acute Assessment and Plan: Nursing staff reports that he has been increasingly weak over the past 7 days or so. May be due to worsening renal function. Continue to follow. (3) Bwfer-yp-seggmyk kidney injury: Code(s): N17.9 - Acute kidney failure, unspecified; N18.9 - Chronic kidney disease, unspecified Status: Acute Assessment and Plan: BUN/Cr improving today: 42/2.7. He is returning to baseline. Acute worsening was likely due to dehydration. Daughter is not certain how well he has been eating. Bladder does not feel distended on exam thus he is likely not retaining urine. Continue cautious IV fluid rehydration, avoid nephrotoxic agents, and repeat labs. (4) Vascular dementia without behavioral disturbance: Code(s): F01.50 - Vascular dementia without behavioral disturbance Status: Acute Assessment and Plan: Initiate fall precautions. Continue quetiapine, divalproex, and donepezil. Patient is quite disoriented. (5) Non-insulin dependent type 2 diabetes mellitus: Code(s): E11.9 - Type 2 diabetes mellitus without complications Status: Acute Assessment and Plan: Random glucose today was 107. Continue saxagliptin, pharmacy to renally dose if needed. Initiate sliding scale insulin, Accu-Cheks, and hypoglycemic protocol. Check hemoglobin A1c today. (6) Hypothyroidism: Code(s): E03.9 - Hypothyroidism, unspecified Status: Acute Assessment and Plan: Continue levothyroxine and check TSH today. Subjective Date/time seen: 08/24/21 09:52 Interval history: 76-year-old male with dementia, coronary artery disease, aortic stenosis status post TAVR, diabetes, hypothyroidism, GERD, anemia, BPH, and CKD who presents to the ER from [facility] for evaluation of frequent falls. He is not oriented. During my exam today he introduced himself as Lynda from [facility], and offered to make me a salad with ranch dressing, and further offered to set up a play date between his black lab and my quarles retriever. He did not answer any questions regardig chest pain, shortness a breath, abdominal pain, lower extremity swelling or bowel or bladder changes. He had no complaints. Review of Systems Review of Systems: ROS unobtainable: Yes unobtainable due to mental status Exam Narrative: GENERAL APPEARANCE: Alert and oriented x 0, in no apparent distress. HEENT: PERRL, EOMI. Sclerae anicteric. Moist mucous membranes. NECK: Supple. No JVD or obvious carotid bruits. RESPIRATORY: Respirations are nonlabored. Breath sounds are equal and clear bilaterally. No wheezes, Rhonchi, or rales. CARDIOVASCULAR: Regular rate with irregular rhythm. S1/S3 present. No murmurs, gallops, or rubs. GASTROINTESTINAL: Soft, flat, and benign. No mass, tenderness, guarding, or rebound. No organomegaly or hernia. Bowel sounds are present. SKIN: Warm, dry, well perfused. Good turgor. No lesions, nodules, or rashes noted. EXTREMITIES: No cyanosis, clubbing, or edema. Radial and pedal pulses intact. NEUROLOGICAL: Alert. Cranial nerves 2-12 are grossly intact. No gross focal deficits to casual conversation. PSYCHIATRIC: Pleasant and cooperative though extremely confused. Objective Data Vital Signs Vital Signs: Vital Signs - 24 hr 08/23/21 12:51 08/23/21 13:11 08/23/21 13:13 Temperature 97.9 F
--- NOTE | 2021-08-24 09:55 | ECG_ITS ---
Measurements Intervals [place] Rate: 53 P: -66 CT: 154 QRS: -39 QRSD: 145 T: 115 QT: 510 QTc: 479 Interpretive Statements SINUS BRADYCARDIA WITH FREQUENT VENTRICULAR PREMATURE COMPLEXES IN A BIGEMINAL PATTERN MARKED LEFT AXIS DEVIATION [QRS AXIS < -30] LEFT BUNDLE BRANCH BLOCK [120+ ms QRS DURATION, 80+ ms Q/S IN V1/V2, 85+ ms R IN I/aVL/V5/V6] COMPARED TO ECG 08/23/2021 13:42:13 SINUS BRADYCARDIA NOW PRESENT Electronically Signed On 08-24-2021 20:35:25 CDT by Mayra Quiroga M.D.
[2021-08-24 10:54] LABS: Hemoglobin A1C 5.1 % (<5.7)
--- NOTE | 2021-08-24 11:01 | PCSTNOTE ---
Please refer to the Bedside Swallow Evaluation in the EMR. Please note, silent aspiration cannot be ruled out at bedside.
[2021-08-24 11:02] LABS: Thyroid Stimulating Hormone Reflex 0.038 uIU/mL (0.465-4.68)
[2021-08-24 11:27] LABS: Glucose Point of Care 163 mg/dl (65-105)
[2021-08-24 13:24] LABS: Free T4 Free Thyroxine Reflex 1.28 ng/dL (0.78-2.19)
[2021-08-24 16:36] LABS: Glucose Point of Care 192 mg/dl (65-105)
[2021-08-24] MEDS: TAMSULOSIN HCL 0.4 MG CAPSULE BY MOUTH (17:30)
[2021-08-24 19:34] LABS: Total Triiodothyronine (T3) 0.67 NG/ML (0.97-1.69)
[2021-08-24] MEDS: MELATONIN 3 MG TABLET PO (20:12)
[2021-08-24] MEDS: DONEPEZIL HCL 5 MG TABLET PO (20:12)
[2021-08-24 20:37] LABS: Glucose Point of Care 137 mg/dl (65-105)
[2021-08-25] VITALS (9 sets, daily range): BP systolic 122–145; BP diastolic 62–97; PULSE 55–65; RESP 12–21; TEMP 36.1–36.5; O2SAT 98–100
[2021-08-25] MEDS: LEVOTHYROXINE SODIUM 100 MCG TABLET PO (05:25)
[2021-08-25 07:57] LABS: Glucose Point of Care 99 mg/dl (65-105)
[2021-08-25 08:06] LABS: Basophils Percent Auto 0.8 % (0.2-1.2); Eosinophils Absolute Auto 0.1 K/mm3 (0-0.3); Eosinophils Percent Auto 2.1 % (0-4.4); Hematocrit 28.6 % (42.0-52.0); Hemoglobin 9.1 g/dL (14.0-18.0); Immature Granulocyte Absolute 0.01 K/mm3 (0.00-0.031); Immature Granulocyte Percent A 0.3 % (0-0.5); Lymphocytes Absolute Auto 1.21 K/mm3 (0.9-3.2); Lymphocytes Percent Auto 32.3 % (18.3-44.2); Mean Corpuscular HGB Conc 31.8 g/dl (32-36); Mean Corpuscular Hemoglobin 31.3 pg (26-34); Mean Corpuscular Volume 98.3 fl (80-100); Mean Platelet Volume 10.7 fl (7.4-10.4); Monocytes Absolute Auto 0.5 K/mm3 (0.1-0.6); Monocytes Percent Auto 14.1 % (2.6-8.5); Neutrophils Absolute Auto 1.9 K/mm3 (1.3-6.7); Neutrophils Percent Auto 50.4 % (45.5-73.1); Platelet Count Result 101 k/mm3 (150-375); Red Blood Count 2.91 M/mm3 (4.6-6.20); Red Cell Distribution Width 13.7 % (11.5-14.5); White Blood Count 3.8 K/mm3 (4.5-10.0)
[2021-08-25 08:18] LABS: Alanine Aminotransferase 14 U/L (6-50); Albumin Level 2.7 g/dL (3.5-5.1); Alkaline Phosphatase 71 U/L (38-126); Anion Gap 2 mmol/L (8-16); Aspartate Amino Transferase 21 U/L (17-59); Bilirubin,Total 0.6 mg/dL (0.2-1.3); Blood Urea Nitrogen 35 mg/dL (9-20); Calcium 8.7 mg/dL (8.4-10.2); Carbon Dioxide 31 mmol/L (22-30); Chloride 112 mmol/L (98-107); Estimated CRCL calculation 33 ml/min; Estimated Glomerular Filt Rate 29; Glucose 99 mg/dL (65-110); Potassium 3.7 mmol/L (3.4-5.0); Sodium 145 mmol/L (137-145)
[2021-08-25] MEDS: ASPIRIN 81 MG ENTERIC TABLET PO (08:29)
[2021-08-25] MEDS: FAMOTIDINE 20 MG TABLET PO (08:29)
[2021-08-25] MEDS: FINASTERIDE 5 MG TABLET PO (08:29)
[2021-08-25] MEDS: ACIDOPHILUS/BULGARICUS CHEWABLE TABLET 1 TABLET PO ×2 (08:29→16:09)
[2021-08-25] MEDS: OMEGA 3 POLYUNSAT FATTY ACIDS 1 GM CAP PO (08:29)
[2021-08-25] MEDS: DIVALPROEX SODIUM DR 250 MG TABEC 500 MG PO ×2 (08:29→20:56)
[2021-08-25] MEDS: QUEtiapine FUMARATE 25 MG TABLET 50 MG PO ×2 (08:29→20:58)
[2021-08-25] MEDS: CHOLECALCIFEROL 1,000 UNITS TABLET 2000 UNITS PO (08:30)
[2021-08-25] MEDS: PRAMIPEXOLE 1 MG TABLET BY MOUTH ×2 (08:30→20:57)
[2021-08-25] MEDS: RANOLAZINE 500 MG TAB.ER.12H PO ×2 (08:30→20:58)
[2021-08-25] MEDS: ASCORBIC ACID 500 MG TABLET PO (08:30)
[2021-08-25] MEDS: CLOPIDOGREL BISULFATE 75 MG TABLET PO (08:30)
[2021-08-25] MEDS: ATORVASTATIN 20 MG TABLET PO (08:30)
[2021-08-25] MEDS: FERROUS SULFATE 324 MG TABLET PO ×2 (08:30→16:09)
[2021-08-25] MEDS: CYANOCOBALAMIN 1,000 MCG TABLET 1000 MCG PO (08:30)
--- NOTE | 2021-08-25 10:14 | PM.DS ---
DS: Admitting Diagnosis Discharge Date 08/25/2021 1600 Admitting Diagnosis confusion DS: Discharge Diagnosis Discharge Diagnosis (1) Frequent falls: Code(s): R29.6 - Repeated falls Status: Acute Assessment and Plan: 08/25- Patient AOx 3 today, appears to be back to baseline after rehydration and improvement in his renal function to baseline. He states he feels it may be unsafe for him to walk by himself as he remembers he has been having frequent falls in the past. He continues to be weak per his PT evaluation (see below). CT head did show Cerebral atherosclerosis and chronic small vessel ischemic changes of cerebral white matter. Stable bilateral basal ganglia calcifications. No acute intracranial finding or skull fracture. Patient does have some tremor in the hands and head, may benefit from outpatient follow up with his neurologist, but will refer also to Dr. Fitzgerald for outpatient follow up. - Patient did exhibit orthostatic hypotension. Will hold his tamsulosin for now, with follow up outpatient prior to re-initiation. - Speech evaluated this patient and stated no additional concerns- patient can continue with normal diet. - EKG showed frequent PVCs with bigeminy. Patient is currently asymptomatic. - OP referral to neurology. (2) Generalized weakness: Code(s): R53.1 - Weakness Status: Acute Assessment and Plan: Nursing staff reports that he has been increasingly weak over the past 7 days or so. May be due to worsening renal function, which have returned to baseline. His cognitive function has greatly improved, though his weakness remains. CT head showed no acute intracranial finding or skull fracture. Chest x-ray showed lower lung opacities related to artifact and low volume versus consolidation/infection. Patient denies any respiratory complaints, the physical exam did not reveal any adventitious lung sounds, patient is saturating well on room air, He remains afebrile, with no leukocytosis. PT did evaluate the patient as having decreased functional independence secondary to limitations of strength, balance, endurance, and safety awareness. Patient was able to follow simple commands, but did have bilateral knees collapse in multiple times requiring 2 persons to remain standing. They did advise that he is not safe to ambulate at this date and will require skilled PT for gait training, transfer training, lower extremity strengthening, endurance building activities. OT recommended SNF (3) Krzxp-sk-vilzjya kidney injury: Code(s): N17.9 - Acute kidney failure, unspecified; N18.9 - Chronic kidney disease, unspecified Status: Acute Assessment and Plan: BUN/Cr Patient has returned to baseline today after fluid resuscitation. Will continue PO hydration at this point. Acute worsening was likely due to dehydration. (4) Vascular dementia without behavioral disturbance: Code(s): F01.50 - Vascular dementia without behavioral disturbance Status: Acute Assessment and Plan: Initiate fall precautions. Continue quetiapine, divalproex, and donepezil. Patient is AOx 3, but per nursing has drastic mood swings. (5) Non-insulin dependent type 2 diabetes mellitus: Code(s): E11.9 - Type 2 diabetes mellitus without complications Status: Acute Assessment and Plan: Random glucose today was 107. Continue saxagliptin, pharmacy to renally dose if needed. Continue sliding scale insulin, Accu-Cheks, and hypoglycemic protocol. Hgb A1c 5.1. Will discharge on home meds, as his sugars appear to be well managed. (6) Hypothyroidism: Code(s): E03.9 - Hypothyroidism, unspecified Status: Acute Assessment and Plan: Continue levothyroxine. TSH was low, but T4 therapeutic. Plan Spoke with care coordination, who relates that due to his increased needs with physical therapy, he will no longer be able to return to the [facility]
[2021-08-25 11:02] LABS: Magnesium 2.2 mg/dL (1.6-2.3)
[2021-08-25 11:20] LABS: Glucose Point of Care 132 mg/dl (65-105)
[2021-08-25 16:17] LABS: Glucose Point of Care 116 mg/dl (65-105)
[2021-08-25 20:40] LABS: Glucose Point of Care 155 mg/dl (65-105)
[2021-08-25] MEDS: MELATONIN 3 MG TABLET PO (20:57)
[2021-08-25] MEDS: DONEPEZIL HCL 5 MG TABLET PO (20:57)
[2021-08-26] VITALS (9 sets, daily range): BP systolic 135–152; BP diastolic 53–70; PULSE 53–69; RESP 12–20; TEMP 36.2–36.6; O2SAT 99–100
[2021-08-26] MEDS: LEVOTHYROXINE SODIUM 100 MCG TABLET PO (05:55)
[2021-08-26 07:43] LABS: Glucose Point of Care 97 mg/dl (65-105)
[2021-08-26 08:13] LABS: Basophils Percent Auto 0.8 % (0.2-1.2); Eosinophils Absolute Auto 0.1 K/mm3 (0-0.3); Eosinophils Percent Auto 2.8 % (0-4.4); Hematocrit 27.4 % (42.0-52.0); Hemoglobin 8.6 g/dL (14.0-18.0); Immature Granulocyte Absolute 0.01 K/mm3 (0.00-0.031); Immature Granulocyte Percent A 0.3 % (0-0.5); Lymphocytes Absolute Auto 1.54 K/mm3 (0.9-3.2); Lymphocytes Percent Auto 42.7 % (18.3-44.2); Mean Corpuscular HGB Conc 31.4 g/dl (32-36); Mean Corpuscular Hemoglobin 30.7 pg (26-34); Mean Corpuscular Volume 97.9 fl (80-100); Mean Platelet Volume 10.7 fl (7.4-10.4); Monocytes Absolute Auto 0.5 K/mm3 (0.1-0.6); Neutrophils Absolute Auto 1.5 K/mm3 (1.3-6.7); Neutrophils Percent Auto 40.4 % (45.5-73.1); Platelet Count Result 100 k/mm3 (150-375); Red Cell Distribution Width 13.4 % (11.5-14.5); White Blood Count 3.6 K/mm3 (4.5-10.0)
[2021-08-26 08:32] LABS: Alanine Aminotransferase 15 U/L (6-50); Albumin Level 2.4 g/dL (3.5-5.1); Alkaline Phosphatase 67 U/L (38-126); Anion Gap 2 mmol/L (8-16); Aspartate Amino Transferase 23 U/L (17-59); Bilirubin,Total 0.6 mg/dL (0.2-1.3); Blood Urea Nitrogen 35 mg/dL (9-20); Calcium 8.6 mg/dL (8.4-10.2); Carbon Dioxide 30 mmol/L (22-30); Chloride 108 mmol/L (98-107); Estimated CRCL calculation 38 ml/min; Estimated Glomerular Filt Rate 35; Glucose 90 mg/dL (65-110); Potassium 3.7 mmol/L (3.4-5.0); Sodium 140 mmol/L (137-145)
[2021-08-26] MEDS: PRAMIPEXOLE 1 MG TABLET BY MOUTH ×2 (08:55→20:05)
[2021-08-26] MEDS: QUEtiapine FUMARATE 25 MG TABLET 50 MG PO ×2 (08:55→20:05)
[2021-08-26] MEDS: FERROUS SULFATE 324 MG TABLET PO ×2 (08:55→16:26)
[2021-08-26] MEDS: FAMOTIDINE 20 MG TABLET PO (08:56)
[2021-08-26] MEDS: ASPIRIN 81 MG ENTERIC TABLET PO (08:56)
[2021-08-26] MEDS: ATORVASTATIN 20 MG TABLET PO (08:56)
[2021-08-26] MEDS: CHOLECALCIFEROL 1,000 UNITS TABLET 2000 UNITS PO (08:56)
[2021-08-26] MEDS: OMEGA 3 POLYUNSAT FATTY ACIDS 1 GM CAP PO (08:56)
[2021-08-26] MEDS: ASCORBIC ACID 500 MG TABLET PO (08:56)
[2021-08-26] MEDS: DIVALPROEX SODIUM DR 250 MG TABEC 500 MG PO ×2 (08:56→20:05)
[2021-08-26] MEDS: CLOPIDOGREL BISULFATE 75 MG TABLET PO (08:56)
[2021-08-26] MEDS: ACIDOPHILUS/BULGARICUS CHEWABLE TABLET 1 TABLET PO ×2 (08:56→16:26)
[2021-08-26] MEDS: CYANOCOBALAMIN 1,000 MCG TABLET 1000 MCG PO (08:56)
[2021-08-26] MEDS: FINASTERIDE 5 MG TABLET PO (08:56)
[2021-08-26] MEDS: RANOLAZINE 500 MG TAB.ER.12H PO ×2 (08:57→20:06)
--- NOTE | 2021-08-26 11:45 | P.PNIM_ITS ---
Progress Note: A&P Assessment and Plan (1) Frequent falls: Code(s): R29.6 - Repeated falls Status: Acute Assessment and Plan: 08/25- Patient AOx 3 today, appears to be back to baseline after rehydration and improvement in his renal function to baseline. He states he feels it may be unsafe for him to walk by himself as he remembers he has been having frequent falls in the past. He continues to be weak per his PT evaluation (see below). CT head did show Cerebral atherosclerosis and chronic small vessel ischemic changes of cerebral white matter. Stable bilateral basal ganglia calcifications. No a cute intracranial finding or skull fracture. Patient does have some tremor in the hands and head, may benefit from outpatient follow up with his neurologist, but will refer also to Dr. Fitzgerald for outpatient follow up. - Patient did exhibit orthostatic hypotension. Will hold his tamsulosin for now, with follow up outpatient prior to re-initiation. - Speech evaluated this patient and stated no additional concerns- patient can continue with normal diet. - EKG showed frequent PVCs with bigeminy. Patient is currently asymptomatic. - OP referral to neurology. (2) Generalized weakness: Code(s): R53.1 - Weakness Status: Acute Assessment and Plan: Nursing staff reports that he has been increasingly weak over the past 7 days or so. May be due to worsening renal function, which have returned to baseline. His cognitive function has greatly improved, though his weakness remains. * CT head showed no acute intracranial finding or skull fracture. * Chest x-ray showed lower lung opacities related to artifact and low volume versus consolidation/infection. Patient denies any respiratory complaints, the physical exam did not reveal any adventitious lung sounds, patient is saturating well on room air, * He remains afebrile, with no leukocytosis. * PT did evaluate the patient as having decreased functional independence secondary to limitations of strength, balance, endurance, and safety awareness. Patient was able to follow simple commands, but did have bilateral knees collapse in multiple times requiring 2 persons to remain standing. They did advise that he is not safe to ambulate at this date and will require skilled PT for gait training, transfer training, lower extremity strengthening, endurance building activities. * OT recommended SNF (3) Kouhg-bx-obxbxpz kidney injury: Code(s): N17.9 - Acute kidney failure, unspecified; N18.9 - Chronic kidney disease, unspecified Status: Acute Assessment and Plan: BUN/Cr Patient has returned to baseline today after fluid resuscitation. Will continue PO hydration at this point. Acute worsening was likely due to dehydration. (4) Vascular dementia without behavioral disturbance: Code(s): F01.50 - Vascular dementia without behavioral disturbance Status: Acute Assessment and Plan: Initiate fall precautions. Continue quetiapine, divalproex, and donepezil. Nimisha ent is AOx 3, but per nursing has drastic mood swings. (5) Non-insulin dependent type 2 diabetes mellitus: Code(s): E11.9 - Type 2 diabetes mellitus without complications Status: Acute Assessment and Plan: Random glucose today was 107. Continue saxagliptin, pharmacy to renally dose if needed. Continue sliding scale insulin, Accu-Cheks, and hypoglycemic protocol. Hgb A1c 5.1. Will discharge on home meds, as his sugars appear to be well managed. (6) Hypothyroidism: Code(s): E03.9 - Hypothyroidism, unspecified Status: Acute
--- NOTE | 2021-08-26 11:47 | PM.IMPN ---
Progress Note: A&P Assessment and Plan (1) Frequent falls: Code(s): R29.6 - Repeated falls Status: Acute (2) Generalized weakness: Code(s): R53.1 - Weakness Status: Acute (3) Ieaqc-jk-xoerfhd kidney injury: Code(s): N17.9 - Acute kidney failure, unspecified; N18.9 - Chronic kidney disease, unspecified Status: Acute (4) Vascular dementia without behavioral disturbance: Code(s): F01.50 - Vascular dementia without behavioral disturbance Status: Acute (5) Non-insulin dependent type 2 diabetes mellitus: Code(s): E11.9 - Type 2 diabetes mellitus without complications Status: Acute (6) Hypothyroidism: Code(s): E03.9 - Hypothyroidism, unspecified Status: Acute Plan This patient is pending placement today and his medical status remains relatively unchanged. (1) Frequent falls: ?Code(s): R29.6 - Repeated falls ?Status:?Acute ?Assessment and Plan: 08/25- Patient AOx 3 today, appears to be back to baseline after rehydration and improvement in his renal function to baseline.? He states he feels it may be unsafe for him to walk by himself as he remembers he has been having frequent falls in the past. He continues to be weak per his PT evaluation (see below). CT head did show?Cerebral atherosclerosis and chronic small vessel ischemic changes of cerebral white matter. Stable bilateral basal ganglia calcifications. No acute intracranial finding or skull fracture. Patient does have some tremor in the hands and head, which he reports has been chronic for many years. OT also did observe shuffling gait. He will benefit from outpatient follow up with his neurologist, but will refer also to Dr. Fitzgerald for outpatient follow up. - Patient did exhibit orthostatic hypotension.? Will hold his tamsulosin for now, with follow up outpatient prior to re-initiation.? - Speech evaluated this patient and stated no additional concerns- patient can continue with normal diet. - EKG showed frequent PVCs with bigeminy. Patient is currently asymptomatic. - OP referral to neurology. 08/26-patient is AO x3. I discussed his outpatient neurology referral. He continues with PT and OT. Patient did show improvement during his OT session today, was able to complete bathing unsupported, transfer from bed to chair independently. (2) Generalized weakness: ?Code(s): R53.1 - Weakness ?Status:?Acute ?Assessment and Plan: Nursing staff reports that he has been increasingly weak over the past 7 days or so. May be due to worsening renal function, which have returned to baseline. His cognitive function has greatly improved, though his weakness remains. ?CT head showed no acute intracranial finding or skull fracture. ?Chest x-ray showed lower lung opacities related to artifact and low volume versus consolidation/infection.? Patient denies any respiratory complaints, the physical exam did not reveal any adventitious lung sounds, patient is saturating well on room air, He remains afebrile, with no leukocytosis. PT did evaluate the patient as having decreased functional independence secondary to limitations of strength, balance, endurance, and safety awareness.? Patient was able to follow simple commands, but did have bilateral knees collapse in multiple times requiring 2 persons to remain standing.? They did advise that he is not safe to ambulate at this date and will require skilled PT for gait training, transfer training, lower extremity strengthening, endurance building activities. OT recommended SNF (3) Rdztq-ig-unemgly kidney injury: ?Code(s): N17.9 - Acute kidney failure, unspecified; N18.9 - Chronic kidney disease, unspecified ?Status:?Acute ?Assessment and Plan: BUN/Cr Patient at baseline. Will continue PO hydration at this point. Acute worsening was likely due to dehydration. (4) Vascular dementia without behavioral disturbance: ?Code(s): F01.50 - Vascular
[2021-08-26 11:48] LABS: Glucose Point of Care 158 mg/dl (65-105)
[2021-08-26 16:44] LABS: Glucose Point of Care 132 mg/dl (65-105)
[2021-08-26] MEDS: MELATONIN 3 MG TABLET PO (20:05)
[2021-08-26] MEDS: DONEPEZIL HCL 5 MG TABLET PO (20:05)
[2021-08-26 20:36] LABS: Glucose Point of Care 151 mg/dl (65-105)
[2021-08-27] VITALS (10 sets, daily range): BP systolic 123–161; BP diastolic 75–93; PULSE 55–70; RESP 16–18; TEMP 36–36.6; O2SAT 96–100
[2021-08-27] MEDS: LEVOTHYROXINE SODIUM 100 MCG TABLET PO (05:37)
[2021-08-27 06:05] LABS: Basophils Percent Auto 0.8 % (0.2-1.2); Eosinophils Absolute Auto 0.1 K/mm3 (0-0.3); Eosinophils Percent Auto 2.8 % (0-4.4); Hematocrit 27.9 % (42.0-52.0); Immature Granulocyte Absolute 0.02 K/mm3 (0.00-0.031); Immature Granulocyte Percent A 0.6 % (0-0.5); Immature Platelet Fraction Pct 5.2 % (0.9-11.2); Lymphocytes Absolute Auto 1.69 K/mm3 (0.9-3.2); Lymphocytes Percent Auto 46.6 % (18.3-44.2); Mean Corpuscular HGB Conc 32.3 g/dl (32-36); Mean Corpuscular Hemoglobin 31.3 pg (26-34); Mean Corpuscular Volume 96.9 fl (80-100); Monocytes Absolute Auto 0.4 K/mm3 (0.1-0.6); Monocytes Percent Auto 11.3 % (2.6-8.5); Neutrophils Absolute Auto 1.4 K/mm3 (1.3-6.7); Neutrophils Percent Auto 37.9 % (45.5-73.1); Platelet Count Result 124 k/mm3 (150-375); Red Blood Count 2.88 M/mm3 (4.6-6.20); Red Cell Distribution Width 13.3 % (11.5-14.5); White Blood Count 3.6 K/mm3 (4.5-10.0)
[2021-08-27 06:23] LABS: Alanine Aminotransferase 18 U/L (6-50); Albumin Level 2.6 g/dL (3.5-5.1); Alkaline Phosphatase 77 U/L (38-126); Anion Gap 2 mmol/L (8-16); Aspartate Amino Transferase 24 U/L (17-59); Bilirubin,Total 0.6 mg/dL (0.2-1.3); Blood Urea Nitrogen 37 mg/dL (9-20); Calcium 8.6 mg/dL (8.4-10.2); Carbon Dioxide 31 mmol/L (22-30); Chloride 105 mmol/L (98-107); Estimated CRCL calculation 38 ml/min; Estimated Glomerular Filt Rate 35; Glucose 91 mg/dL (65-110); Potassium 3.8 mmol/L (3.4-5.0); Sodium 138 mmol/L (137-145)
--- NOTE | 2021-08-27 07:41 | PM.IMPN ---
Progress Note: A&P Assessment and Plan (1) Frequent falls: Code(s): R29.6 - Repeated falls Status: Acute Assessment and Plan: 08/26-patient is AO x3.? I discussed outpatient neurology referral.? He continues with PT and OT.? Patient did show improvement during his OT session today, was able to complete bathing unsupported, transfer from bed to chair independently. 08/27-AO x2. He continues with PT/OT. Of note patient had taken his bed monitor off, gotten from bed, and had undressed and was walking around his room. (2) Generalized weakness: Code(s): R53.1 - Weakness Status: Acute Assessment and Plan: Nursing staff reports that he has been increasingly weak over the past 7 days or so. May be due to worsening renal function, which have returned to baseline. His cognitive function fluctuates daily, and throughout the day to a great extent ?CT head showed no acute intracranial finding or skull fracture. ?Chest x-ray showed lower lung opacities related to artifact and low volume versus consolidation/infection.? Patient denies any respiratory complaints, the physical exam did not reveal any adventitious lung sounds, patient is saturating well on room air, He remains afebrile, with no leukocytosis. PT and OT recommend SNF placement at this time, which is pending. (3) Jbshk-us-bbdjinj kidney injury: Code(s): N17.9 - Acute kidney failure, unspecified; N18.9 - Chronic kidney disease, unspecified Status: Acute Assessment and Plan: BUN/Cr Patient at baseline. Will continue PO hydration at this point. Acute worsening was likely due to dehydration. (4) Vascular dementia without behavioral disturbance: Code(s): F01.50 - Vascular dementia without behavioral disturbance Status: Acute Assessment and Plan: Initiate fall precautions.? Continue quetiapine, divalproex, and donepezil. Patient is AOx 2, but per nursing has drastic changes in orientation and behavior throughout the day. Additional plan as above. (5) Non-insulin dependent type 2 diabetes mellitus: Code(s): E11.9 - Type 2 diabetes mellitus without complications Status: Acute Assessment and Plan: Glucose 91. Continue sliding scale insulin, Accu-Cheks, and hypoglycemic protocol. Hgb A1c 5.1. Will discharge on home meds, as his sugars appear to be well managed. (6) Hypothyroidism: Code(s): E03.9 - Hypothyroidism, unspecified Status: Acute Assessment and Plan: Continue levothyroxine. TSH was low, but T4 therapeutic. Subjective Date/time seen: 08/27/21 07:41 Interval history: 76-year-old male with dementia, coronary artery disease, aortic stenosis status post TAVR, diabetes, hypothyroidism, GERD, anemia, BPH, and CKD who presents to the ER from [facility] for evaluation of frequent falls.? Patient was AAO x2 today. Somewhat evasive with questioning. Nursing staff does report significant confusion, as well as patient ambulating around his room without assistance and attempting to undress himself. He also removed his own IV. He denies chest pain, shortness of breath. He does have some dried blood at the corners of his mouth, but he is unsure of where this came from. Review of Systems Review of Systems: All systems reviewed & are unremarkable except as noted in HPI and below Exam Narrative: GENERAL APPEARANCE: Alert and oriented x 2, in no apparent distress. HEENT: PERRL, EOMI. Sclerae anicteric. Moist mucous membranes. NECK: Supple. No JVD or obvious carotid bruits. RESPIRATORY: Respirations are nonlabored. Breath sounds are equal and clear bilaterally. No wheezes, Rhonchi, or rales. CARDIOVASCULAR: Regular rate and rhythm with normal S1-S2. No murmurs, gallops, or rubs. GASTROINTESTINAL: Soft, flat, and benign. No mass, tenderness, guarding, or rebound. No organomegaly or hernia. Bowel sounds are present. SKIN: Warm, dry, w
[2021-08-27 07:44] LABS: Glucose Point of Care 88 mg/dl (65-105)
[2021-08-27] MEDS: QUEtiapine FUMARATE 25 MG TABLET 50 MG PO ×2 (08:03→20:57)
[2021-08-27] MEDS: PRAMIPEXOLE 1 MG TABLET BY MOUTH ×2 (08:03→20:57)
[2021-08-27] MEDS: FINASTERIDE 5 MG TABLET PO (08:03)
[2021-08-27] MEDS: RANOLAZINE 500 MG TAB.ER.12H PO ×2 (08:03→20:57)
[2021-08-27] MEDS: OMEGA 3 POLYUNSAT FATTY ACIDS 1 GM CAP PO (08:04)
[2021-08-27] MEDS: CYANOCOBALAMIN 1,000 MCG TABLET 1000 MCG PO (08:04)
[2021-08-27] MEDS: ASCORBIC ACID 500 MG TABLET PO (08:04)
[2021-08-27] MEDS: DIVALPROEX SODIUM DR 250 MG TABEC 500 MG PO ×2 (08:04→20:57)
[2021-08-27] MEDS: ATORVASTATIN 20 MG TABLET PO (08:04)
[2021-08-27] MEDS: FERROUS SULFATE 324 MG TABLET PO ×2 (08:04→16:34)
[2021-08-27] MEDS: CLOPIDOGREL BISULFATE 75 MG TABLET PO (08:04)
[2021-08-27] MEDS: ACIDOPHILUS/BULGARICUS CHEWABLE TABLET 1 TABLET PO ×2 (08:04→16:34)
[2021-08-27] MEDS: FAMOTIDINE 20 MG TABLET PO (08:04)
[2021-08-27] MEDS: ASPIRIN 81 MG ENTERIC TABLET PO (08:04)
[2021-08-27] MEDS: CHOLECALCIFEROL 1,000 UNITS TABLET 2000 UNITS PO (08:04)
[2021-08-27 11:21] LABS: Glucose Point of Care 94 mg/dl (65-105)
[2021-08-27 16:41] LABS: Glucose Point of Care 153 mg/dl (65-105)
[2021-08-27] MEDS: MELATONIN 3 MG TABLET PO (20:57)
[2021-08-27] MEDS: DONEPEZIL HCL 5 MG TABLET PO (20:58)
[2021-08-28 04:21] VITALS: BP 156/80; PULSE 65; RESP 17; TEMP 36.1; O2SAT 100
[2021-08-28] MEDS: LEVOTHYROXINE SODIUM 100 MCG TABLET PO (05:52)
--- NOTE | 2021-08-28 06:57 | PM.DS ---
DS: Admitting Diagnosis Discharge Date 08/28/2021 1600 Admitting Diagnosis Confusion/ Falls DS: Discharge Diagnosis Discharge Diagnosis (1) Generalized weakness: Code(s): R53.1 - Weakness Status: Acute Assessment and Plan: Nursing staff reports that he has been increasingly weak over the past 7 days or so. May be due to worsening renal function, which have returned to baseline. His cognitive function fluctuates daily, and throughout the day to a great extent. He has been sundowning and agressive at night per the nursing staff. ?CT head showed no acute intracranial finding or skull fracture. ?Chest x-ray showed lower lung opacities related to artifact and low volume versus consolidation/infection.? Patient denies any respiratory complaints, the physical exam did not reveal any adventitious lung sounds, patient is saturating well on room air, He remains afebrile, with no leukocytosis. PT and OT recommend SNF placement. We will discharge to [facility]. (2) Frequent falls: Code(s): R29.6 - Repeated falls Status: Acute Assessment and Plan: 08/26-patient is AO x3.? I discussed outpatient neurology referral.? He continues with PT and OT.? Patient did show improvement during his OT session today, was able to complete bathing unsupported, transfer from bed to chair independently. 08/27-AO x2. He continues with PT/OT. Of note patient had taken his bed monitor off, gotten from bed, and had undressed and was walking around his room. 08/28- AO x 2. Nursing reports he has been violent and not re-directable overnight. He is cooperative with my questioning this morning. Denies any concerns. (3) Blxbt-cy-nhwqeft kidney injury: Code(s): N17.9 - Acute kidney failure, unspecified; N18.9 - Chronic kidney disease, unspecified Status: Acute Assessment and Plan: BUN/Cr Patient at baseline. Will continue PO hydration at this point. Acute worsening was likely due to dehydration. (4) Vascular dementia without behavioral disturbance: Code(s): F01.50 - Vascular dementia without behavioral disturbance Status: Acute Assessment and Plan: Initiate fall precautions.? Continue quetiapine, divalproex, and donepezil. Patient is AOx 2, but per nursing has drastic changes in orientation and behavior throughout the day. Additional plan as above. (5) Non-insulin dependent type 2 diabetes mellitus: Code(s): E11.9 - Type 2 diabetes mellitus without complications Status: Acute Assessment and Plan: Glucose 86. Continue sliding scale insulin, Accu-Cheks, and hypoglycemic protocol. Hgb A1c 5.1. Will discharge on home meds, as his sugars appear to be well managed. (6) Hypothyroidism: Code(s): E03.9 - Hypothyroidism, unspecified Status: Acute Assessment and Plan: Continue levothyroxine. TSH was low, but T4 therapeutic. Plan Anemia noted on CBC- this has been stable for the duration of his stay. Orthostatics were positive during his stay. Will hold home tamsulosin pending patient's follow up with primary care. DS: Summary Hospital Course Reason for hospitalization: Confusion/ Falls Hospital Course: See above for full hospital course. Status at Discharge Cognitive/behavioral status at discharge: Progressing to baseline. Time Spent with Patient Time attestation: Total time spent providing and/or coordinating discharge services: 35 mins Exam Narrative: GENERAL APPEARANCE: Alert and oriented x 2, in no apparent distress. HEENT: PERRL, EOMI. Sclerae anicteric. Moist mucous membranes. NECK: Supple. No JVD or obvious carotid bruits. RESPIRATORY: Respirations are nonlabored. Breath sounds are equal and clear bilaterally. No wheezes, Rhonchi, or rales. CARDIOVASCULAR: Regular rate and rhythm with normal S1-S2. No murmurs, gallops, or rubs. GASTROINTESTINAL: Soft, flat, and benign. No mass, tendern
[2021-08-28 07:39] LABS: Basophils Percent Auto 0.8 % (0.2-1.2); Eosinophils Absolute Auto 0.1 K/mm3 (0-0.3); Eosinophils Percent Auto 2.8 % (0-4.4); Hematocrit 30.3 % (42.0-52.0); Hemoglobin 9.8 g/dL (14.0-18.0); Immature Granulocyte Absolute 0.02 K/mm3 (0.00-0.031); Immature Granulocyte Percent A 0.6 % (0-0.5); Lymphocytes Absolute Auto 1.66 K/mm3 (0.9-3.2); Lymphocytes Percent Auto 46.4 % (18.3-44.2); Mean Corpuscular HGB Conc 32.3 g/dl (32-36); Mean Corpuscular Hemoglobin 30.6 pg (26-34); Mean Corpuscular Volume 94.7 fl (80-100); Mean Platelet Volume 10.7 fl (7.4-10.4); Monocytes Absolute Auto 0.4 K/mm3 (0.1-0.6); Monocytes Percent Auto 12.3 % (2.6-8.5); Neutrophils Absolute Auto 1.3 K/mm3 (1.3-6.7); Neutrophils Percent Auto 37.1 % (45.5-73.1); Platelet Count Result 125 k/mm3 (150-375); Red Cell Distribution Width 13.2 % (11.5-14.5); White Blood Count 3.6 K/mm3 (4.5-10.0)
[2021-08-28 07:47] LABS: Alanine Aminotransferase 21 U/L (6-50); Albumin Level 2.6 g/dL (3.5-5.1); Alkaline Phosphatase 78 U/L (38-126); Anion Gap 2 mmol/L (8-16); Aspartate Amino Transferase 28 U/L (17-59); Bilirubin,Total 0.6 mg/dL (0.2-1.3); Blood Urea Nitrogen 37 mg/dL (9-20); Calcium 8.6 mg/dL (8.4-10.2); Carbon Dioxide 29 mmol/L (22-30); Chloride 105 mmol/L (98-107); Estimated CRCL calculation 38 ml/min; Estimated Glomerular Filt Rate 35; Glucose 86 mg/dL (65-110); Potassium 3.8 mmol/L (3.4-5.0); Sodium 136 mmol/L (137-145)
[2021-08-28 08:17] LABS: Glucose Point of Care 117 mg/dl (65-105)
[2021-08-28] MEDS: ASPIRIN 81 MG ENTERIC TABLET PO (08:36)
[2021-08-28] MEDS: ASCORBIC ACID 500 MG TABLET PO (08:36)
[2021-08-28] MEDS: FERROUS SULFATE 324 MG TABLET PO (08:36)
[2021-08-28] MEDS: ACIDOPHILUS/BULGARICUS CHEWABLE TABLET 1 TABLET PO (08:36)
[2021-08-28] MEDS: ATORVASTATIN 20 MG TABLET PO (08:36)
[2021-08-28] MEDS: CHOLECALCIFEROL 1,000 UNITS TABLET 2000 UNITS PO (08:36)
[2021-08-28] MEDS: RANOLAZINE 500 MG TAB.ER.12H PO (08:37)
[2021-08-28] MEDS: CLOPIDOGREL BISULFATE 75 MG TABLET PO (08:37)
[2021-08-28] MEDS: FAMOTIDINE 20 MG TABLET PO (08:37)
[2021-08-28] MEDS: DIVALPROEX SODIUM DR 250 MG TABEC 500 MG PO (08:37)
[2021-08-28] MEDS: PRAMIPEXOLE 1 MG TABLET BY MOUTH (08:37)
[2021-08-28] MEDS: CYANOCOBALAMIN 1,000 MCG TABLET 1000 MCG PO (08:37)
[2021-08-28] MEDS: FINASTERIDE 5 MG TABLET PO (08:37)
[2021-08-28] MEDS: OMEGA 3 POLYUNSAT FATTY ACIDS 1 GM CAP PO (08:38)
[2021-08-28] MEDS: QUEtiapine FUMARATE 25 MG TABLET 50 MG PO (08:38)
[2021-08-28 10:27] LABS: EDCOVIDSCREEN Negative (Negative)
[2021-08-28 11:41] LABS: Glucose Point of Care 97 mg/dl (65-105)
--- NOTE | 2021-08-28 12:24 | PC.NURSE ---
Called [facility] and spoke to Maria T Ibrahim and gave report. Patient will be discharged to their facility and go to Room 634L
== END 2021-08-28 13:05 ==
LOC: ANHED 14:04 → ANH2MED 17:10
PROVIDERS: Family Medicine; Physician Assistant; Admitting Provider Family Medicine; Emergency Provider General Practice; PCP Internal Medicine; Visit Provider Student in an Organized Health Care Education/Training Program
DX: N17.9 Acute kidney failure, unspecified (principal); R53.1 Weakness; R29.6 Repeated falls; I12.9 Hypertensive chronic kidney disease with stage 1 through stage 4 chronic kidney disease, or unspecified chronic kidney disease; E11.22 Type 2 diabetes mellitus with diabetic chronic kidney disease; N18.9 Chronic kidney disease, unspecified; F01.50 Vascular dementia, unspecified severity, without behavioral disturbance, psychotic disturbance, mood disturbance, and anxiety; I25.10 Atherosclerotic heart disease of native coronary artery without angina pectoris; D64.9 Anemia, unspecified; N40.0 Benign prostatic hyperplasia without lower urinary tract symptoms; E78.5 Hyperlipidemia, unspecified; K21.9 Gastro-esophageal reflux disease without esophagitis; E03.9 Hypothyroidism, unspecified; Z79.4 Long term (current) use of insulin; Z79.82 Long term (current) use of aspirin; Z95.5 Presence of coronary angioplasty implant and graft; Z86.16 Personal history of COVID-19; Z20.822 Contact with and (suspected) exposure to COVID-19
CPT/HCPCS: 36415; 70450; 71046; 80048; 80053; 81001; 82550; 82948; 83036; 83735; 83880; 84439; 84443; 84480; 84484; 85025; 85055; 85610; 85730; 86900; 86901; 87426; 92610; 93005; 96360; 96361; 97110; 97161; 97167; 97530; 97535; 99285; 99291; A9270; C9803; G0378; J7030; J7040; U0003; U0005

== ENCOUNTER 2021-08-28 23:25 | Emergency (ER) | payer MEDICARE, SELFPAY ==
--- NOTE | ~2021-08-28 | CT_ITS ---
EXAMINATION: CT brain wo con DATE: 08/29/2021 00:08 INDICATION: Ground-level fall TECHNIQUE: Computed tomography (CT) of the head was performed without intravenous contrast. The mA wa s adjusted according to patient size. Iterative reconstruction technique was employed. Exam dose: 68 1.00 mGy-cm total exam DLP. COMPARISON: None FINDINGS: Small acute subdural hematoma along the right side of the cerebral falx, measuring up to pr oxy 4.5 mm maximal depth, 17 mm anteroposterior dimension. No other intracranial hemorrhage is noted. No midline shifts or mass effect. No cerebrovascular accid ent is detected. Bilateral basal ganglia calcifications. Bilateral vertebral artery, basilar artery and prominent bilateral carotid siphon and supraclinoid in ternal carotid artery calcifications. There is nonspecific diminished attenuation cerebral white gabbi er, likely due to chronic small vessel ischemic changes. Prominent hematoma along the nasion and prominent frontal cephalohematoma. No fracture or cranial vau lt. The paranasal sinuses and mastoid air cells appear normally developed and aerated. Bilateral basal ganglia calcifications. IMPRESSION: Prominent frontal cephalohematoma and prominent hematoma in the nasion area No skull fracture or nasal bone fracture Small acute subdural hematoma along the right side of the cerebral falx No other acute intracranial finding Cerebral atherosclerosis and chronic small vessel ischemic changes of the cerebral white matter Reviewed, dictated and finalized at [facility]. Reviewed, dictated and finalized at [facility]. IMPRESSION: Prominent frontal cephalohematoma and prominent hematoma in the na cecilia area No skull fracture or nasal bone fracture Small acute subdural hematoma along the right side of the cerebral falx No other acute intracranial finding Cerebral atherosclerosis and chronic small vessel ischemic changes of the cereb ral white matter
[2021-08-28 23:32] VITALS: BP 141/64; PULSE 68; RESP 12; O2SAT 98
[2021-08-29 00:27] VITALS: BP 124/47; PULSE 66; RESP 13; O2SAT 97
--- NOTE | 2021-08-29 00:31 | ED.FALL ---
HPI - Fall General Chief Complaint: Fall Stated Complaint: glf with laceration Time Seen by Provider: 08/28/21 23:25 History of Present Illness HPI Narrative: Patient is a 76-year-old male who presents ER status post fall. Patient is a known fall risk is anticoagulated on Plavix and aspirin. Patient has a hematoma with skin defect over the medial aspect of his left eyebrow and the bridge of his nose. Steri-Strips applied by senior living. Patient awake and alert and follows commands. Oriented x1. Related Data Home Medications Medication Instructions Recorded Confirmed aspirin 81 mg tablet,delayed 81 mg PO DAILY 02/28/19 08/23/21 release (Aspir-) cinnamon bark 500 mg capsule 500 mg PO DAILY 02/28/19 08/23/21 (Cinnamon) cyanocobalamin (vitamin B-12) 1,000 mcg PO DAILY 02/28/19 08/23/21 1,000 mcg tablet (Vitamin B-12) fish wgq-ydfca-1-vit C-vit E 1,000 mg PO DAILY 02/28/19 08/23/21 nitroglycerin 0.4 mg sublingual 0.4 mg sublingual Q5-15M PRN Pain 02/28/19 08/23/21 tablet (Nitrostat) ranolazine 500 mg tablet,extended 500 mg PO Q12H 02/28/19 08/23/21 release,12 hr atorvastatin 20 mg tablet 20 mg PO DAILY 05/08/19 08/23/21 acetaminophen 325 mg tablet 650 mg PO Q6H PRN Pain 07/05/20 08/23/21 cholecalciferol (vitamin D3) 50 50 mcg PO DAILY 07/05/20 08/23/21 mcg (2,000 unit) capsule quetiapine 25 mg tablet 50 mg PO BID 07/05/20 08/23/21 Lactobacillus acidophilus-pectin 1 tablet PO BID 12/04/20 08/23/21 chewable tablet (Acidophilus-Pectin chewable tablet) divalproex 250 mg tablet,delayed 500 mg PO Q12HR 12/04/20 08/23/21 release (Depakote) donepezil 5 mg tablet 5 mg PO HS 12/04/20 08/23/21 ferrous sulfate 325 mg (65 mg 325 mg PO BID 12/04/20 08/23/21 iron) tablet ascorbate calcium (vitamin C) 500 500 mg PO DAILY 08/23/21 08/23/21 mg tablet famotidine 20 mg tablet 20 mg PO DAILY 08/23/21 08/23/21 finasteride 5 mg tablet 1 tablet PO DAILY 08/23/21 08/23/21 furosemide 40 mg tablet 20 mg PO DAILY 08/23/21 08/23/21 melatonin 3 mg tablet 3 mg PO HS 08/23/21 08/23/21 Allergies Allergy/AdvReac Type Severity Reaction Status Date / Time No Known Allergies Allergy Verified 08/23/21 13:19 Review of Systems Review of Systems: ROS unobtainable: Yes unobtainable due to mental status [facility] Past Medical History Medical History Chronic anemia History of iron deficiency requiring transfusions. Chronic kidney disease, stage 4 (severe) Baseline creatinine is around 2.40. Coronary artery disease COVID-19 (11/2020) Degenerative arthritis Gastroesophageal reflux disease Hyperlipidemia Hypertension Hypothyroidism Non-insulin dependent type 2 diabetes mellitus Severe aortic stenosis Status post TAVR. Vascular dementia without behavioral disturbance Surgical History Surgical History History of cardiac catheterization (08/2013) Revealed severe multivessel coronary artery disease. History of colonoscopy with polypectomy (03/2018) Revealed internal hemorrhoids and colon polyps. History of esophagogastroduodenoscopy (04/2018) Revealed gastric erosions. History of right hip replacement (07/1999) History of tonsillectomy History of transcatheter aortic valve replacement (TAVR) Stented coronary artery Family History Family History Father Acute myocardial infarction, Onset Age: 59 Family history of cardiovascular disease Grandparent Family history of cardiovascular disease Family history of malignant neoplasm Family history of malignant neoplasm of bone Social History Social History (Updated 08/24/21 @ 00:09 by Queenie Cagle PA-C) Social History: Surrogate decision maker: Nettie Red, daughter. Code status: Do not resuscitate. Smoking status: Never smoker Second hand tobacco smoke exposure: Yes Alcohol int
[2021-08-29 01:38] VITALS: BP 129/47; PULSE 72; RESP 15; O2SAT 98
== END 2021-08-29 01:26 | disposition short-term general hospital (02) ==
PROVIDERS: Emergency Provider Emergency Medicine; PCP Internal Medicine
DX: S06.5X9A Traumatic subdural hemorrhage with loss of consciousness of unspecified duration, initial encounter (principal); I12.9 Hypertensive chronic kidney disease with stage 1 through stage 4 chronic kidney disease, or unspecified chronic kidney disease; E11.22 Type 2 diabetes mellitus with diabetic chronic kidney disease; N18.4 Chronic kidney disease, stage 4 (severe); I25.10 Atherosclerotic heart disease of native coronary artery without angina pectoris; E03.9 Hypothyroidism, unspecified; E78.5 Hyperlipidemia, unspecified; Z79.82 Long term (current) use of aspirin; Z79.01 Long term (current) use of anticoagulants; W18.30XA Fall on same level, unspecified, initial encounter; Y92.129 Unspecified place in nursing home as the place of occurrence of the external cause
CPT/HCPCS: 36415; 70450; 86900; 86901; 99291

== ENCOUNTER 2021-11-10 14:49 | Emergency (ER) | payer MEDICARE, SELFPAY ==
[2021-11-10] VITALS (8 sets, daily range): BP systolic 140–159; BP diastolic 63–87; PULSE 56–80; RESP 16; TEMP 36.8; O2SAT 58–100
--- NOTE | ~2021-11-10 | CT_ITS ---
EXAMINATION: CT brain wo con DATE: 11/10/2021 15:14 INDICATION: Head injury. TECHNIQUE: Computed tomography (CT) of the head was performed without intravenous contrast. The mA wa s adjusted according to patient size. Iterative reconstruction technique was employed. The dose-lengt h product was 605.33 mGy-cm. COMPARISON: Head CT 08/28/2021 FINDINGS: There are dystrophic calcification in the bilateral basal ganglia. There are scattered area s of low attenuation in the cerebral white matter. There is no intracranial hemorrhage, acute infarct ion, or abnormal intracranial mass lesion. The ventricles are normal in size. The paranasal sinuses a re clear. The mastoid air cells are normal. The orbits are normal. IMPRESSION: 1. Stable mild nonspecific cerebral white matter disease, which likely represents chronic small vesse l ischemic disease. Reviewed, dictated and finalized at [facility]. IMPRESSION: 1. Stable mild nonspecific cerebral white matter disease, which likely represen ts chronic small vessel ischemic disease.
--- NOTE | 2021-11-10 14:59 | ED.GENADULT ---
HPI - General Adult General Chief complaint: Head Injury Stated complaint: fall yesterday, on blood thinners Time Seen by Provider: 11/10/21 14:50 History of Present Illness HPI narrative: 76-year-old male that resides in a local [facility] that is also a full ambulatory assist presents to the emergency department for evaluation with a head injury. Patient states yesterday evening he had a fall and struck his head. Patient is unsure what caused the fall. Patient denies any loss of consciousness. Staff noticed he does have a hematoma on his posterior scalp. Patient does take Plavix. Patient is ANO at his baseline. Patient denies any complaints at this time. Patient is otherwise well-appearing. Related Data Home Medications Medication Instructions Recorded Confirmed aspirin 81 mg tablet,delayed 81 mg PO DAILY 02/28/19 08/23/21 release (Aspir-) cinnamon bark 500 mg capsule 500 mg PO DAILY 02/28/19 08/23/21 (Cinnamon) cyanocobalamin (vitamin B-12) 1,000 mcg PO DAILY 02/28/19 08/23/21 1,000 mcg tablet (Vitamin B-12) fish ndb-bgxkz-3-vit C-vit E 1,000 mg PO DAILY 02/28/19 08/23/21 nitroglycerin 0.4 mg sublingual 0.4 mg sublingual Q5-15M PRN Pain 02/28/19 08/23/21 tablet (Nitrostat) ranolazine 500 mg tablet,extended 500 mg PO Q12H 02/28/19 08/23/21 release,12 hr atorvastatin 20 mg tablet 20 mg PO DAILY 05/08/19 08/23/21 acetaminophen 325 mg tablet 650 mg PO Q6H PRN Pain 07/05/20 08/23/21 cholecalciferol (vitamin D3) 50 50 mcg PO DAILY 07/05/20 08/23/21 mcg (2,000 unit) capsule quetiapine 25 mg tablet 50 mg PO BID 07/05/20 08/23/21 Lactobacillus acidophilus-pectin 1 tablet PO BID 12/04/20 08/23/21 chewable tablet (Acidophilus-Pectin chewable tablet) divalproex 250 mg tablet,delayed 500 mg PO Q12HR 12/04/20 08/23/21 release (Depakote) donepezil 5 mg tablet 5 mg PO HS 12/04/20 08/23/21 ferrous sulfate 325 mg (65 mg 325 mg PO BID 12/04/20 08/23/21 iron) tablet ascorbate calcium (vitamin C) 500 500 mg PO DAILY 08/23/21 08/23/21 mg tablet famotidine 20 mg tablet 20 mg PO DAILY 08/23/21 08/23/21 finasteride 5 mg tablet 1 tablet PO DAILY 08/23/21 08/23/21 furosemide 40 mg tablet 20 mg PO DAILY 08/23/21 08/23/21 melatonin 3 mg tablet 3 mg PO HS 08/23/21 08/23/21 saxagliptin 2.5 mg tablet (Onglyza) 2.5 mg PO DAILY 11/10/21 Allergies Allergy/AdvReac Type Severity Reaction Status Date / Time No Known Allergies Allergy Verified 11/10/21 15:36 Review of Systems Review of Systems: CONSTITUTIONAL: Denies fever, chills, or sweats. EYES: Denies visual changes, redness, or discharge. ENT: Denies rhinorrhea, congestion, sore throat, or otalgia. CARDIOVASCULAR: Denies chest pain, palpitations, or edema. RESPIRATORY: Denies cough or dyspnea. GASTROINTESTINAL: Denies abdominal pain, nausea, vomiting, or diarrhea. GENITOURINARY: Denies dysuria or hematuria. SKIN: Posterior scalp hematoma MUSCULOSKELETAL: Denies back pain, joint pain, or myalgia. NEUROLOGIC: Denies headache, numbness, or weakness. FORMERLY [facility], [facility] Past Medical History Medical History Chronic anemia History of iron deficiency requiring transfusions. Chronic kidney disease, stage 4 (severe) Baseline creatinine is around 2.40. Coronary artery disease COVID-19 (11/2020) Degenerative arthritis Gastroesophageal reflux disease Hyperlipidemia Hypertension Hypothyroidism Non-insulin dependent type 2 diabetes mellitus Severe aortic stenosis Status post TAVR. Vascular dementia without behavioral disturbance Surgical History Surgical History History of cardiac catheterization (08/2013) Revealed severe multivessel coronary artery disease. History of colonoscopy with polypectomy (03/2018) Revealed internal hemorrhoids and colon polyps. History of esophagogastroduodenoscopy (04/2018) Revealed gastric erosions. History of right hip repl
--- NOTE | 2021-11-10 16:04 | PC.NURSE ---
Called assisted living spoke with SHABBIR Spencer. Updated on pt status. Informed her that pt was ready to discharge and unable to reach family. Facility unable to transport from facility so family or ambulance will be necessary to transport back home.
--- NOTE | 2021-11-10 16:07 | PC.NURSE ---
Attempted to contact pt emergency contact. Unable to reach family at this time.
--- NOTE | 2021-11-10 16:32 | PC.NURSE ---
Report given to NOA Spencer. Updated on pt status and pending discharge. No further questions at this time.
== END 2021-11-10 16:29 ==
PROVIDERS: Emergency Provider Emergency Medicine; PCP Internal Medicine
DX: S00.03XA Contusion of scalp, initial encounter (principal); I12.9 Hypertensive chronic kidney disease with stage 1 through stage 4 chronic kidney disease, or unspecified chronic kidney disease; E11.22 Type 2 diabetes mellitus with diabetic chronic kidney disease; N18.4 Chronic kidney disease, stage 4 (severe); D64.9 Anemia, unspecified; I25.10 Atherosclerotic heart disease of native coronary artery without angina pectoris; E78.5 Hyperlipidemia, unspecified; E03.9 Hypothyroidism, unspecified; I35.0 Nonrheumatic aortic (valve) stenosis; F01.50 Vascular dementia, unspecified severity, without behavioral disturbance, psychotic disturbance, mood disturbance, and anxiety; M19.90 Unspecified osteoarthritis, unspecified site; K21.9 Gastro-esophageal reflux disease without esophagitis; Z86.16 Personal history of COVID-19; Z86.010 Personal history of colon polyps; Z96.641 Presence of right artificial hip joint; Z95.2 Presence of prosthetic heart valve; Z95.5 Presence of coronary angioplasty implant and graft; Z79.82 Long term (current) use of aspirin; Z79.02 Long term (current) use of antithrombotics/antiplatelets; Z79.84 Long term (current) use of oral hypoglycemic drugs; Z66 Do not resuscitate; R90.82 White matter disease, unspecified; W19.XXXA Unspecified fall, initial encounter
CPT/HCPCS: 70450; 99284

== ENCOUNTER 2023-09-28 18:39 | Emergency (ER) | payer MEDICARE, SELFPAY ==
--- NOTE | ~2023-09-28 | XR_ITS ---
Portable chest x-ray Comparison: 08/23/2021 Clinical History: Altered mental status, Covid 19 positive Findings: Lungs are clear, without focal consolidation or pleural effusion. Cardiomediastinal silho uette is stable, status post aortic valve replacement. Stable scoliotic change of the spine. Impression: Clear lungs. Stable mild cardiomegaly, status post aortic valve replacement. Reviewed, dictated and finalized at location . Impression: Clear lungs. Stable mild cardiomegaly, status post aortic valve replacement.
[2023-09-28 18:37] VITALS: BP 155/69; PULSE 90; RESP 23; O2SAT 95
--- NOTE | 2023-09-28 18:42 | ECG_ITS ---
Test Date: 2023-09-28 18:45:20 Measurements Intervals [place] Rate: 90 P: 42 MA: 185 QRS: -34 QRSD: 145 T: 109 QT: 409 QTc: 503 Interpretive Statements SINUS RHYTHM WITH OCCASIONAL VENTRICULAR PREMATURE COMPLEXES LEFT AXIS DEVIATION INTRAVENTRICULAR CONDUCTION DELAY CANNOT R/O SEPTAL INFARCT, AGE INDETERMINATE ST-T WAVE ABNORMALITY IN HIGH LATERAL LEADS- CONSIDER ISCHEMIA ABNORMAL ECG No previous ECG available for comparison Electronically Signed On 09-28-2023 20:57:35 CDT by Jakob Doherty D.O.
[2023-09-28 18:59] LABS: Basophils Percent Auto 0.7 % (0.2-1.2); Eosinophils Percent Auto 0.2 % (0-4.4); Hematocrit 34.7 % (42.0-52.0); Hemoglobin 11.3 g/dL (14.0-18.0); Immature Granulocyte Absolute 0.02 K/mm3 (0.00-0.031); Immature Granulocyte Percent A 0.3 % (0-0.5); Immature Platelet Fraction Pct 4.5 % (0.9-11.2); Lymphocytes Absolute Auto 0.72 K/mm3 (0.9-3.2); Lymphocytes Percent Auto 12.4 % (18.3-44.2); Mean Corpuscular HGB Conc 32.6 g/dl (32-36); Mean Corpuscular Hemoglobin 30.9 pg (26-34); Mean Corpuscular Volume 94.8 fl (80-100); Mean Platelet Volume 11.6 fl (7.4-10.4); Monocytes Absolute Auto 0.9 K/mm3 (0.1-0.6); Neutrophils Absolute Auto 4.2 K/mm3 (1.3-6.7); Neutrophils Percent Auto 71.4 % (45.5-73.1); Platelet Count Result 90 k/mm3 (150-375); Red Blood Count 3.66 M/mm3 (4.6-6.20); Red Cell Distribution Width 13.7 % (11.5-14.5); White Blood Count 5.8 K/mm3 (4.5-10.0)
[2023-09-28 19:12] LABS: Albumin Level 3.2 g/dL (3.5-5.1); Alkaline Phosphatase 78 U/L (38-126); Anion Gap 7 mmol/L (4-12); Aspartate Amino Transferase 17 U/L (17-59); Bilirubin,Total 0.6 mg/dL (0.2-1.3); Blood Urea Nitrogen 33 mg/dL (9-20); Carbon Dioxide 29 mmol/L (22-30); Chloride 103 mmol/L (98-107); Estimated CRCL calculation 33 ml/min; Estimated Glomerular Filt Rate 33; Glucose 174 mg/dL (65-110); Potassium 3.4 mmol/L (3.4-5.0); Sodium 139 mmol/L (137-145)
--- NOTE | 2023-09-28 19:14 | ED.GENADULT ---
HPI - General Adult General Chief complaint: Weakness Stated complaint: lethargic, weakness, COVID+ Time Seen by Provider: 09/28/23 19:02 History of Present Illness HPI narrative: 78-year-old male presents to the emergency department for evaluation for not feeling well. Patient states he has felt more lethargic. Patient did test positive for COVID. Patient denies any chest pain or current shortness of breath. Related Data Home Medications Medication Instructions Recorded Confirmed aspirin 81 mg tablet,delayed 81 mg PO DAILY 02/28/19 08/23/21 release (Aspir-) cinnamon bark 500 mg capsule 500 mg PO DAILY 02/28/19 08/23/21 (Cinnamon) cyanocobalamin (vitamin B-12) 1,000 mcg PO DAILY 02/28/19 08/23/21 1,000 mcg tablet (Vitamin B-12) fish [id number] C-vit E 1,000 mg PO DAILY 02/28/19 08/23/21 nitroglycerin 0.4 mg sublingual 0.4 mg sublingual Q5-15M PRN Pain 02/28/19 08/23/21 tablet (Nitrostat) ranolazine 500 mg tablet,extended 500 mg PO Q12H 02/28/19 08/23/21 release,12 hr atorvastatin 20 mg tablet 20 mg PO DAILY 05/08/19 08/23/21 acetaminophen 325 mg tablet 650 mg PO Q6H PRN Pain 07/05/20 08/23/21 cholecalciferol (vitamin D3) 50 50 mcg PO DAILY 07/05/20 08/23/21 mcg (2,000 unit) capsule quetiapine 25 mg tablet 50 mg PO BID 07/05/20 08/23/21 Lactobacillus acidophilus-pectin 1 tablet PO BID 12/04/20 08/23/21 chewable tablet (Acidophilus-Pectin chewable tablet) divalproex 250 mg tablet,delayed 500 mg PO Q12HR 12/04/20 08/23/21 release (Depakote) donepezil 5 mg tablet 5 mg PO HS 12/04/20 08/23/21 ferrous sulfate 325 mg (65 mg 325 mg PO BID 12/04/20 08/23/21 iron) tablet ascorbate calcium (vitamin C) 500 500 mg PO DAILY 08/23/21 08/23/21 mg tablet famotidine 20 mg tablet 20 mg PO DAILY 08/23/21 08/23/21 finasteride 5 mg tablet 1 tablet PO DAILY 08/23/21 08/23/21 furosemide 40 mg tablet 20 mg PO DAILY 08/23/21 08/23/21 melatonin 3 mg tablet 3 mg PO HS 08/23/21 08/23/21 saxagliptin 2.5 mg tablet (Onglyza) 2.5 mg PO DAILY 11/10/21 Allergies Allergy/AdvReac Type Severity Reaction Status Date / Time No Known Allergies Allergy Verified 11/10/21 15:36 Review of Systems Review of Systems: All systems reviewed & are unremarkable except as noted in HPI and below PMFSH Past Medical History Medical History Chronic anemia History of iron deficiency requiring transfusions. Chronic kidney disease, stage 4 (severe) Baseline creatinine is around 2.40. Coronary artery disease COVID-19 (11/2020) Degenerative arthritis Gastroesophageal reflux disease Hyperlipidemia Hypertension Hypothyroidism Non-insulin dependent type 2 diabetes mellitus Severe aortic stenosis Status post TAVR. Vascular dementia without behavioral disturbance Surgical History Surgical History History of cardiac catheterization (08/2013) Revealed severe multivessel coronary artery disease. History of colonoscopy with polypectomy (03/2018) Revealed internal hemorrhoids and colon polyps. History of esophagogastroduodenoscopy (04/2018) Revealed gastric erosions. History of right hip replacement (07/1999) History of tonsillectomy History of transcatheter aortic valve replacement (TAVR) Stented coronary artery Family History Family History Father Acute myocardial infarction, Onset Age: 59 Family history of cardiovascular disease Grandparent Family history of cardiovascular disease Family history of malignant neoplasm Family history of malignant neoplasm of bone Social History Social History (Updated 08/24/21 @ 00:09 by Queenie Cagle PA-C) Social History: Surrogate decision maker: Nettie Red, daughter. Code status: Do not resuscitate. Smoking status: Never smoker Second hand tobacco smoke exposure: Yes Alcohol intake: never
[2023-09-28 19:37] LABS: Alanine Aminotransferase < 6 U/L (6-50)
--- NOTE | 2023-09-28 19:39 | PC.NURSE ---
this rn assumed care of patient. this rn took patient report from Mindy Pringle.
--- NOTE | 2023-09-28 20:11 | PC.NURSE ---
Attempted to call report to [facility] at this time. No answer, left message to call back.
[2023-09-28 21:47] VITALS: BP 159/72; PULSE 82; RESP 14; O2SAT 97
--- NOTE | 2023-09-28 22:04 | PC.NURSE ---
Report given to Yary LATHAM at [place] ([id number]). Would like to be notified when pt leaves ED.
[2023-09-28 22:42] VITALS: BP 160/70; PULSE 83; RESP 17; O2SAT 94
--- NOTE | 2023-09-28 22:47 | PC.NURSE ---
Called [facility] at 2010, to transport patient back to [facility] [address]. [facility] called back at 2129 update new eta is 530am. Called [facility] at 2123, declined transport due to staffing.
[2023-09-29 00:15] VITALS: BP 170/82; PULSE 78; RESP 20; O2SAT 99
[2023-09-29 00:30] VITALS: BP 153/78; PULSE 90; RESP 19; O2SAT 97
--- NOTE | 2023-09-29 03:08 | PC.NURSE ---
Called [facility] at [phone] cancel transport.
[2023-09-29 04:05] VITALS: BP 162/106; PULSE 76; RESP 15; O2SAT 97
[2023-09-29 04:11] VITALS: BP 165/125; PULSE 84; RESP 17; O2SAT 97
[2023-09-29 04:17] VITALS: BP 146/117; PULSE 73; RESP 19; O2SAT 95
--- NOTE | 2023-09-29 04:56 | PC.NURSE ---
Called [facility] at [phone], Cancel transport. Patient daughter will take him back to the [facility].
[2023-09-29 05:02] VITALS: BP 164/83; PULSE 81; RESP 16; O2SAT 96
== END 2023-09-29 05:40 ==
PROVIDERS: Family Medicine; Emergency Provider Emergency Medicine; PCP Internal Medicine
DX: U07.1 COVID-19 (principal); F01.C0 Vascular dementia, severe, without behavioral disturbance, psychotic disturbance, mood disturbance, and anxiety; I12.9 Hypertensive chronic kidney disease with stage 1 through stage 4 chronic kidney disease, or unspecified chronic kidney disease; E11.22 Type 2 diabetes mellitus with diabetic chronic kidney disease; N18.4 Chronic kidney disease, stage 4 (severe); I35.0 Nonrheumatic aortic (valve) stenosis; E78.5 Hyperlipidemia, unspecified; E03.9 Hypothyroidism, unspecified; D64.9 Anemia, unspecified; K21.9 Gastro-esophageal reflux disease without esophagitis; M19.90 Unspecified osteoarthritis, unspecified site; Z66 Do not resuscitate; Z96.641 Presence of right artificial hip joint; Z95.2 Presence of prosthetic heart valve; Z95.5 Presence of coronary angioplasty implant and graft; Z86.16 Personal history of COVID-19; Z86.010 Personal history of colon polyps; Z79.899 Other long term (current) drug therapy; Z79.82 Long term (current) use of aspirin
CPT/HCPCS: 36415; 71045; 80053; 85025; 85055; 93005; 99283